=== PATIENT | female | born 1975 | race Caucasian/White ===

== ENCOUNTER → 2016-05-21 | Outpatient (CLI) | payer OTHER ==
[~2016-05-21] MED LIST: /PARO37TCR; ACET65TA; ATIV1TAB2; BYSTOLIC; CLOTRIMAZOLE; PERC5TAB8; SIMV20TA2; TRAM50TA2
--- NOTE | 2016-06-03 23:13 | ECWPNPC ---
PATIENT NAME: KEMAL ZEE : 1975 GENDER: FEMALE VISIT DATE: 05/21/2016 DISCHARGE DATE: 05/21/16 1025 VISIT LOCKED DATE TIME: PHYSICIAN: MEGAN GARCIA RESOURCE: MEGAN GARCIA REASON FOR APPOINTMENT 1. NEW BODY PART NECK HISTORY OF PRESENT ILLNESS FALL RISK SCREENING: SCREENING :NO FALLS IN THE PAST YEAR 40 YEAR OLD FEMALE PATIENT WITH HISTORY OF CHRONIC NECK PAIN. PATIENT DESCRIBES THE PAIN ACHING AND CONSTANT WITH A PAIN SCORE OF 7/10 ON TODAY'S VISIT. PATIENT REPORTS THAT HER NECK PAIN STARTED ON DECEMBER TO JANUARY OF 2016 AND HER PAIN HAS ONLY GOTTEN WORST. PATIENT REPORTS THAT SHE HAS RADIATING NECK PAIN GOING TO THE BACK OF HER HEAD WITH A TINGLING SENSATION AND SOMETIMES CAUSES HER TO HAVE HEADACHES. PATIENT REPORTS THAT ANY TIME OF MOVEMENT ON HER NECK GREATLY INCREASES HER PAIN AND AT THIS TIME HAS FOUND NOTHING TO REALLY RELIEVE HER PAIN. PATIENT STATES THAT WHEN SHE LAYS DOWN SHE WILL GET A SHARP PAIN IN HER NECK. PATIENT REPORTS THAT SHE HAS DIFFICULTIES SLEEPING AT NIGHT AND SHE WAS DIAGNOSED WITH SLEEP APNEA BUT SHE DOES NOT HAVE A C PAP MACHINE. PATIENT DENIES UNEXPLAINABLE WEIGHT LOSS, FEVER, CHILLS, NEW CHANGES ON HER URINARY OR BOWEL CONTROL. PAIN SCREENING: PATIENT HAS A COMPLAINT OF ACUTE OR CHRONIC PAIN :YES CURRENT MEDICATIONS TAKING VENTOLIN HFA 90 MCG/ACT AEROSOL SOLUTION 2 PUFFS NEEDED INHALATION EVERY 4 HRS TAKING GLUCOTROL XL 2.5 MG TABLET EXTENDED RELEASE 1 TABLET ORALLY ONCE A DAY TAKING LOSARTAN POTASSIUM 25 MG TABLET 1 TABLET ORALLY ONCE A DAY TAKING ZYRTEC 10 MG TABLET 1 TABLET ORALLY ONCE A DAY TAKING NEXIUM 40 MG CAPSULE DELAYED RELEASE 1 CAPSULE ORALLY ONCE A DAY TAKING SIMVASTATIN 10 MG TABLET 1 TABLET IN THE EVENING ORALLY ONCE A DAY TAKING PAROXETINE HCL ER 37.5 MG TABLET EXTENDED RELEASE 24 HOUR 1 TABLET IN THE MORNING ORALLY ONCE A DAY TAKING MOMETASONE-AMMONIUM LACTATE 0.1 & 12 % KIT EXTERNALLY PRN TAKING MOTRIN PM 200-38 MG TABLET 2 TABLETS AT BEDTIME NEEDED ORALLY ONCE A DAY TAKING OTEZLA 30 MG TABLET 1 TABLET ORALLY TWICE A DAY TAKING FLEXERIL 10 MG TABLET 1 TABLET ORALLY THREE TIMES A DAY NOT-TAKING GABAPENTIN 300 MG CAPSULE 1 CAPSULE ORALLY BID MEDICATION LIST REVIEWED AND RECONCILED WITH THE PATIENT PAST MEDICAL HISTORY HTN DEPRESSION / ANXIETY BRONCHIATUS HYPERLIPEDEMIA COSTOCHONDRIATUS BULGING DISC L4-5 AND L5-S1 ARTHRITIS BONE SPUR LEFT HIP SLEEP APNEA DIABETES NECK PAIN CA--CERVICLE PSORIOSIS DDD BONE SPURS IN NECK ALLERGIES CODEINE PHOSPHATE (FOR ALLERGIES USE ONLY): N/V/D: SIDE EFFECTS CRAB MEAT: RASH ON FACE: ALLERGY SURGICAL HISTORY HYSTERETOMY 2004 I+D OF INFECTED AREA UNDER LEFT BREAST 2009 PLATES AND SCREWS RIGHT WRIST 2011 CYSTS REMOVED ON NECK AND INNER LEFT THIGH FAMILY HISTORY FATHER: 59 YRS, DIAGNOSED WITH CANCER MOTHER: ALIVE 69 YRS, DIAGNOSED WITH DIABETES, HYPERTENSION, HEART DISEASE, STROKE SIBLINGS: ALIVE SON(S): ALIVE DAUGHTER(S): ALIVE 2 SON(S) , 1 DAUGHTER(S) . FATHER--LUNG CA4 BROTHERS HAVE COPD, 1BROTHER--SEIZURESYOUNGEST SON--ADHD. SOCIAL HISTORY GENERAL: TOBACCO USE ARE YOU A:FORMER SMOKER ALCOHOL SCREENING POINTS0 INTERPRETATIONNEGATIVE RECREATIONAL DRUG USE PATIENT DENIES USE OF ANY ILLEGAL SUBSTANCE INCLUDING MARIJUANA OR COCAINE. PATIENT DENIES ABUSE OR MISSUSED OF ANY MEDICATION. DRUG USE?NO CAFFEINE CAFFEINE USE?YES HOW OFTEN AND HOW MUCH? 2 CUPS COFFEE/DAY, 2 BOTTLES OF SODA/DAY OCCUPATION: UNEMPLOYED. DIET: REGULAR. EXERCISE: NO REGULAR EXERCISE. MARITAL STATUS: . OTHERS AT HOME: SPOUSE, CHILDREN--2 SONS. PETS: 1 CAT, 1 DOG. 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 ADVANCED DIRECTIVES HEALTH CARE PROXY?NO POWER OF BOARD SETTER?NO DOMESTIC VIOLENCE: NONE. PLAN OF CARE FOR THE PAIN CENTER REVIEWED WITH PATIENT AND SHE VERBALIZED UNDERSTANDING. HOSPITALIZATION/MAJOR DIAGNOSTIC PROCEDURE HOSPITALIZATIONS RELATED TO SURGERY AND CHILDBIRTH REVIEW OF SYSTEMS CONSTITUTIONAL: ANY CHANGE IN YOUR MEDICAL CONDITION? NO . CHILLS NO . FEVER NO . INFECTION: DO YOU HAVE NEW INFECTIONS? NO . DO YOU HAVE HISTORY OF MRSA? NO . MUSCULOSKELETAL: ANY NEW PATTERNS OF PAIN OR NUMBNESS? YES, PAIN IN NECK WITH TINGLING UP THE BACK OF HER HEAD . SYTEMIC LUPUS NO . GASTROENTEROLOGY: ANY NEW CHANGE IN BOWEL CONTROL? NO . BARRETTS ESOPHAGUS NO . CIRRHOSIS NO . HEPATITIS NO . LIVER FAILURE NO . ACID REFLUX NO . UNEXPLAINED WEIGHT LOSS NO . GENITOURINARY: ANY NEW CHANGE IN BLADDER CONTROL? NO . IS THERE A CHANCE YOU COULD BE ? NO . HEMATOLOGY/LYMPH: DO YOU TAKE ANY BLOOD THINNERS? (FOR EXAMPLE- COUMADIN, PLAVIX, AGGRENOX, PLATEL, PRADAXA, OR XARELTO) NO . WHEN WAS YOUR LAST DOSE? DATE: TIME: . LOW PLATELET COUNT NO . SICKLE CELL DISEASE NO . VON WILLIEBRANDS NO . FACTOR V LEIDEN NO . THALLASEMIA NO . ANEMIA NO . EASY BRUISING NO . NEUROLOGY: HAVE YOU FALLEN IN THE PAST 6 MONTHS? NO . ANY NEW EXTREMITY NUMBNESS OR WEAKNESS? NO . HEAD INJURY NO . DEMENTIA NO . CEREBRAL PALSY NO . MULTIPLE SCLEROSIS NO . DIZZINESS NO . HEADACHE GETS HEADACHES APPROX 2X WEEK--RELIEVED BY MOTRIN AND SLEEP . STROKES NO . VERTIGO NO . CARDIOLOGY: DO YOU HAVE A PACEMAKER OR DEFIBRILLATOR? NO . ANGINA NO . HEART ATTACK NO . HEART SURGERY NO . CONGESTIVE HEART FAILURE/FLUID OVERLOAD NO . CHEST PAIN NO . HIGH BLOOD PRESSURE ON MEDICATION(S) . IRREGULAR HEART BEAT NO . RESPIRATORY: HAVE YOU BEEN SICK IN THE PAST WEEK? NO . FEVER NO . FLU LIKE SYMPTOMS? NO . CPAP NO, DIAGNOSED WITH AGATHA BUT DOESN'T USE CPAP . BYPAP NO . ASTHMA NO . EMPHYSEMA NO . CHRONIC LUNG DISEASES NO . SHORTNESS OF BREATH ON EXERTION NO . COUGH NO . SNORING NO . INTEGUMENTARY: DO YOU HAVE ANY RASHES OR OPEN SORES? YES,PSORIOSIS ON HER HANDS . ALLERGIC/IMMUNO: ARE YOU ALLERGIC TO SHELLFISH OR IV DYE? YES, CRAB MEAT . ANY NEW ALLERGIES? NO . PSYCHIATRIC: DO YOU HAVE THOUGHTS OF HURTING YOURSELF OR SOMEONE ELSE? NO . ARE YOU ABUSED, NEGLECTED, OR IN AN UNSAFE ENVIRONMENT? NO . ENDOCRINOLOGY: ARE YOU DIABETIC? YES . THYROID DISORDER THYROID SLIGHTLY ENLARGED . OTHER: DO YOU NEED ANY PRESCRIPTIONS? NO . IF YES, PLEASE LIST: ____ . ANY NEW PROBLEMS WITH YOUR MEDICATIONS? NO . WHEN DID YOU LAST EAT? ____ . WHEN DID YOU LAST DRINK? ____ . WHAT DID YOU LAST DRINK? ____ . NAME OF PERSON DRIVING YOU HOME? ____ . DO YOU HAVE ANY OTHER QUESTIONS OR CONCERNS NO . REVIEWED BY: PROVIDER: MEGAN GARCIA MD . VITAL SIGNS WT 226.4 LBS, HT 64 IN, BMI 38.86 INDEX, BP 131/72 MM HG, HR 79 /MIN, RR 18 /MIN, TEMP 96.9 F, OXYGEN SAT % 95%, NA INITIALS SC 08:44, REVIEWED BY: AD. EXAMINATION : PATIENT IS ALERT O X 3 AND COOPERATIVE. PATIENT HAS TENDERNESS IN THE CERVICAL PARASPINAL MUSCLE GROUP WITH BANDS OF TISSUES. RESTRICTION OF MOVEMENT AND PRESENCE OF TRIGGER POINTS. PATIENT'S LEFT ARM IS WEAKER IN STRENGTH COMPARED TO THE RIGHT ARM. PATIENT'S LEFT HAND RESEARCH ASSOCIATE POLICY IS WEAKER THAN THE RIGHT HAND RESEARCH ASSOCIATE POLICY. PATIENT IS ABLE TO FLEX HER NECK TO 15 DEGREES AND PATIENT HAS DIFFICULTIES EXTENDING HER NECK. LATERAL MOVEMENT OF THE NECK IS 5 DEGREES TO THE LEFT AND 10 DEGREES TO THE RIGHT WITH SEVERE RESTRICTION OF MOVEMENT. PATIENT IS ABLE TO ABDUCT HER UPPER EXTREMITIES. PATIENT IS ABLE TO FLEX HER BACK TO 85 DEGREES AND SEVERE DIFFICULTIES EXTENDING HER BACK. PATIENT'S LEFT LEG IS WEAKER IN STRENGTH COMPARED TO THE RIGHT LEG. MRI OF THE CERVICAL SPINE DONE ON 12/22/2015 SHOWS SPONDYLOSIS AT MULTIPLE LEVELS AND FACET ARTHROPATHY. ASSESSMENTS MYALGIA - M79.1 (PRIMARY) SPONDYLOSIS WITHOUT MYELOPATHY OR RADICULOPATHY, CERVICAL REGION - M47.812 TREATMENT MYALGIA REFILL GABAPENTIN CAPSULE, 300 MG, 1 CAPSULE, ORALLY, BEFORE BEDTIME FOR PAIN, 30 DAY(S), 30, REFILLS 1 NOTES: WE DISCUSSED SEVERAL ISSUES WITH MS. ZEE'S PAIN MANAGEMENT CASE. I DISCUSSED WITH THE PATIENT THAT I WOULD LIKE HER PRIMARY CARE TO CALL ME IN ORDER FOR US TO REACH AN AGREEMENT ABOUT HER MEDICATIONS. I WILL HAVE THE PATIENT START GABAPENTIN TODAY AND DISCUSSED WITH HER TO TAKE IT AT NIGHT. I DISCUSSED SEVERAL INTERVENTIONS WITH THE PATIENT TODAY IN REGARDS TO WHAT WE CAN OFFER FOR HER PAIN MANAGEMENT. PATIENT TO FOLLOW UP WITH ME IN 1 WEEK. , INSTRUCTIONS WERE GIVEN, QUESTIONS WERE ANSWERED, PATIENT REPORTS UNDERSTANDING AND AGREES WITH THE PLAN. I, CHANG REYES, DOCUMENTED THE ABOVE INFORMATION ACTING A SCRIBE FOR DR. GARCIA. I HAVE REVIEWED THE ABOVE DOCUMENT, WRITTEN BY CHANG REYES SCRIBE AND I VERIFY THAT IT IS ACCURATE. PROCEDURE CODES FA211 ESTABILISHED PATIENT [facility] CHARGE G8730 PAIN ASSESS POS TOOL F/U PLAN DOC G8427 DOC MEDS VERIFIED W/PT OR RE DISPOSITION & COMMUNICATION FOLLOW UP 1 WEEK ELECTRONICALLY SIGNED BY MEGAN GARCIA MD ON 06/03/2016 AT 05:17 PM EDT DISCLAIMER : THIS IS A VISIT SUMMARY EXTRACTED FROM THE [employer] CHART. IT IS NOT A COPY OF THE [employer] PROGRESS NOTE. REKHA
== END ==
LOC: M PAIN 08:40
PROVIDERS: ATTEND Anesthesiology
DX: Z09 Encounter for follow-up examination after completed treatment for conditions other than malignant neoplasm (principal); G89.29 Other chronic pain; M79.1 Myalgia; M47.812 Spondylosis without myelopathy or radiculopathy, cervical region; I10 Essential (primary) hypertension; F32.9 Major depressive disorder, single episode, unspecified; F41.9 Anxiety disorder, unspecified; E78.5 Hyperlipidemia, unspecified; M19.90 Unspecified osteoarthritis, unspecified site; G47.30 Sleep apnea, unspecified; E11.9 Type 2 diabetes mellitus without complications; Z88.5 Allergy status to narcotic agent; Z91.013 Allergy to seafood; Z79.1 Long term (current) use of non-steroidal anti-inflammatories (NSAID); Z79.4 Long term (current) use of insulin; Z79.899 Other long term (current) drug therapy; Z87.891 Personal history of nicotine dependence

== ENCOUNTER → 2016-06-01 | Outpatient (CLI) | payer OTHER ==
--- NOTE | 2016-06-10 23:46 | ECWPNPC ---
PATIENT NAME: KEMAL ZEE : 1975 GENDER: FEMALE VISIT DATE: 06/01/2016 DISCHARGE DATE: 06/01/161716 VISIT LOCKED DATE TIME: PHYSICIAN: MEGAN GARCIA RESOURCE: MEGAN GARCIA REASON FOR APPOINTMENT 1. NECK HISTORY OF PRESENT ILLNESS HISTORY OF PRESENT ILLNESS: PAIN THE PATIENT DESCRIBES THE PAIN... 40 YEAR OLD FEMALE PATIENT WITH HISTORY OF CHRONIC BACK PAIN. PATIENT DESCRIBES THE PAIN ACHING, SHARP, AND IT COMES AND GOES WITH A PAIN SCORE OF 6/10 ON TODAY'S VISIT. PATIENT STATES THAT HER NECK HURTS THE MOST TODAY WITH RADIATING PAIN UP TO THE BACK OF HER HEAD. PATIENT STATES THAT GABAPENTIN CAUSES DRY MOUTH, AND WHEN SHE TOOK GABAPENTIN ON HER FIRST NIGHT SHE WAS ABLE TO SLEEP THROUGH THE NIGHT WITHOUT DIFFICULTIES. BUT SINCE THEN THE DIFFICULTIES SLEEPING AT NIGHT HAS RETURNED. PATIENT DENIES UNEXPLAINABLE WEIGHT LOSS, FEVER, CHILLS, NEW CHANGES ON HER URINARY OR BOWEL CONTROL. FALL RISK SCREENING: SCREENING :NO FALLS IN THE PAST YEAR CURRENT MEDICATIONS TAKING VENTOLIN HFA 90 MCG/ACT AEROSOL SOLUTION 2 PUFFS NEEDED INHALATION EVERY 4 HRS TAKING GLUCOTROL XL 2.5 MG TABLET EXTENDED RELEASE 1 TABLET ORALLY ONCE A DAY TAKING LOSARTAN POTASSIUM 25 MG TABLET 1 TABLET ORALLY ONCE A DAY TAKING ZYRTEC 10 MG TABLET 1 TABLET ORALLY ONCE A DAY TAKING NEXIUM 40 MG CAPSULE DELAYED RELEASE 1 CAPSULE ORALLY ONCE A DAY TAKING SIMVASTATIN 10 MG TABLET 1 TABLET IN THE EVENING ORALLY ONCE A DAY TAKING PAROXETINE HCL ER 37.5 MG TABLET EXTENDED RELEASE 24 HOUR 1 TABLET IN THE MORNING ORALLY ONCE A DAY TAKING MOMETASONE-AMMONIUM LACTATE 0.1 & 12 % KIT EXTERNALLY PRN TAKING MOTRIN PM 200-38 MG TABLET 2 TABLETS AT BEDTIME NEEDED ORALLY ONCE A DAY TAKING OTEZLA 30 MG TABLET 1 TABLET ORALLY TWICE A DAY TAKING FLEXERIL 10 MG TABLET 1 TABLET ORALLY THREE TIMES A DAY TAKING GABAPENTIN 300 MG CAPSULE 1 CAPSULE ORALLY BEFORE BEDTIME FOR PAIN MEDICATION LIST REVIEWED AND RECONCILED WITH THE PATIENT PAST MEDICAL HISTORY HTN DEPRESSION / ANXIETY BRONCHIATUS HYPERLIPEDEMIA COSTOCHONDRIATUS BULGING DISC L4-5 AND L5-S1 ARTHRITIS BONE SPUR LEFT HIP SLEEP APNEA DIABETES NECK PAIN CA--CERVICLE PSORIOSIS DDD BONE SPURS IN NECK ALLERGIES CODEINE PHOSPHATE (FOR ALLERGIES USE ONLY): N/V/D: SIDE EFFECTS CRAB MEAT: RASH ON FACE: ALLERGY SURGICAL HISTORY HYSTERETOMY 2004 I+D OF INFECTED AREA UNDER LEFT BREAST 2009 PLATES AND SCREWS RIGHT WRIST 2011 CYSTS REMOVED ON NECK AND INNER LEFT THIGH FAMILY HISTORY FATHER: 59 YRS, DIAGNOSED WITH CANCER MOTHER: ALIVE 69 YRS, DIAGNOSED WITH DIABETES, HYPERTENSION, HEART DISEASE, STROKE SIBLINGS: ALIVE SON(S): ALIVE DAUGHTER(S): ALIVE 2 SON(S) , 1 DAUGHTER(S) . FATHER--LUNG CA4 BROTHERS HAVE COPD, 1BROTHER--SEIZURESYOUNGEST SON--ADHD. SOCIAL HISTORY GENERAL: PAIN CLINIC PFS, CLERGY, PUBLIC HEALTH REFERRALS CLERGY REFERRAL NEEDED?NO WAS THE PROVIDER NOTIFIED OF ANY PERTINENT INFO?NO PFS REFERRAL NEEDED?NO PUBLIC HEALTH REFERRAL NEEDED?NO PATIENT: ____. PLAN OF CARE FOR THE PAIN CENTER REVIEWED WITH PATIENT AND SHE VERBALIZED UNDERSTANDING. HOSPITALIZATION/MAJOR DIAGNOSTIC PROCEDURE HOSPITALIZATIONS RELATED TO SURGERY AND CHILDBIRTH REVIEW OF SYSTEMS CONSTITUTIONAL: ANY CHANGE IN YOUR MEDICAL CONDITION? NO . CHILLS NO . FEVER NO . INFECTION: DO YOU HAVE NEW INFECTIONS? NO . DO YOU HAVE HISTORY OF MRSA? NO . MUSCULOSKELETAL: ANY NEW PATTERNS OF PAIN OR NUMBNESS? YES, RIGHT HEAD AND NECK, NUMBNESS STARTED TODAY . GASTROENTEROLOGY: ANY NEW CHANGE IN BOWEL CONTROL? NO . GENITOURINARY: ANY NEW CHANGE IN BLADDER CONTROL? NO . IS THERE A CHANCE YOU COULD BE ? NO . HEMATOLOGY/LYMPH: DO YOU TAKE ANY BLOOD THINNERS? (FOR EXAMPLE- COUMADIN, PLAVIX, AGGRENOX, PLATEL, PRADAXA, OR XARELTO) NO . WHEN WAS YOUR LAST DOSE? DATE: TIME: . NEUROLOGY: HAVE YOU FALLEN IN THE PAST 6 MONTHS? NO . ANY NEW EXTREMITY NUMBNESS OR WEAKNESS? NO . CARDIOLOGY: DO YOU HAVE A PACEMAKER OR DEFIBRILLATOR? NO . RESPIRATORY: HAVE YOU BEEN SICK IN THE PAST WEEK? NO . FEVER NO . FLU LIKE SYMPTOMS? NO . COUGH NO . INTEGUMENTARY: DO YOU HAVE ANY RASHES OR OPEN SORES? YES, PSORIASIS . ALLERGIC/IMMUNO: ARE YOU ALLERGIC TO SHELLFISH OR IV DYE? YES . ANY NEW ALLERGIES? NO . PSYCHIATRIC: DO YOU HAVE THOUGHTS OF HURTING YOURSELF OR SOMEONE ELSE? NO . ARE YOU ABUSED, NEGLECTED, OR IN AN UNSAFE ENVIRONMENT? NO . ENDOCRINOLOGY: ARE YOU DIABETIC? YES . OTHER: DO YOU NEED ANY PRESCRIPTIONS? NO . IF YES, PLEASE LIST: ____ . ANY NEW PROBLEMS WITH YOUR MEDICATIONS? NO . WHEN DID YOU LAST EAT? ____ . WHEN DID YOU LAST DRINK? ____ . WHAT DID YOU LAST DRINK? ____ . NAME OF PERSON DRIVING YOU HOME? ____ . DO YOU HAVE ANY OTHER QUESTIONS OR CONCERNS NO . REVIEWED BY: PROVIDER: MEGAN GARCIA MD . VITAL SIGNS WT 222 LBS, HT 64 IN, BMI 38.10 INDEX, BP 139/94 MM HG, HR 101 /MIN, RR 18 /MIN, TEMP 97.3 F, OXYGEN SAT % 97%, NA INITIALS SC15:47, REVIEWED BY: NL. EXAMINATION : PATIENT IS ALERT O X 3 AND COOPERATIVE. PATIENT IS ABLE TO EXTEND HER NECK TO 15 DEGREES AND FLEX HER NECK TO 45 DEGREES. LATERAL MOVEMENT OF THE NECK TO LEFT IS AT 20 DEGREES AND TO THE RIGHT AT 30 DEGREES. PATIENT HAS TENDERNESS IN THE CERVICAL PARASPINAL MUSCLE GROUP WITH BANDS OF TISSUES, RESTRICTION OF MOVEMENT, AND PRESENCE OF TRIGGER POINTS. ASSESSMENTS MYALGIA - M79.1 (PRIMARY) SPONDYLOSIS WITHOUT MYELOPATHY OR RADICULOPATHY, CERVICAL REGION - M47.812 TREATMENT MYALGIA REFILL GABAPENTIN CAPSULE, 300 MG, 1 CAPSULE, ORALLY, BEFORE BEDTIME FOR PAIN, 30 DAY(S), 30, REFILLS 1 NOTES: WE DISCUSSED SEVERAL ISSUES WITH MS. ZEE'S PAIN MANAGEMENT CASE. AT THIS TIME I WILL REFILL GABAPENTIN AND HAVE THE PATIENT START ON ZANAFLEX. I DISCUSSED WITH THE PATIENT THAT HER PRIMARY MUST CALL US IN ORDER TO REACH AN AGREEMENT REGARDING ABOUT PRESCRIBING NARCOTICS. PATIENT WILL FOLLOW UP WITH YANNICK DALTON IN 2 TO 3 WEEKS. INSTRUCTIONS WERE GIVEN, QUESTIONS WERE ANSWERED, PATIENT REPORTS UNDERSTANDING AND AGREES WITH THE PLAN. I, CHANG REYES, DOCUMENTED THE ABOVE INFORMATION ACTING A SCRIBE FOR DR. GARCIA. I HAVE REVIEWED THE ABOVE DOCUMENT, WRITTEN BY CHANG ELIASIBMira AND I VERIFY THAT IT IS ACCURATE. OTHERS START ZANAFLEX CAPSULE, 2 MG, 1 CAPSULE NEEDED, ORALLY, BEFORE BEDTIME MAY REPEAT IN 4 HRS MDD2, 30 DAY(S), 60, REFILLS 1 PROCEDURE CODES FA211 ESTABILISHED PATIENT [facility] FACILITY CHARGE M6638 PAIN ASSESS POS TOOL F/U PLAN DOC G8427 DOC MEDS VERIFIED W/PT OR RE DISPOSITION & COMMUNICATION FOLLOW UP 3 WEEKS ELECTRONICALLY SIGNED BY MEGAN GARCIA MD ON 06/10/2016 AT 04:33 PM EDT DISCLAIMER : THIS IS A VISIT SUMMARY EXTRACTED FROM THE [employer] CHART. IT IS NOT A COPY OF THE [employer] PROGRESS NOTE. REKHA
== END ==
LOC: M PAIN 15:15
PROVIDERS: ATTEND Anesthesiology
DX: G89.29 Other chronic pain (principal); M47.812 Spondylosis without myelopathy or radiculopathy, cervical region; M79.1 Myalgia; I10 Essential (primary) hypertension; F32.9 Major depressive disorder, single episode, unspecified; F41.9 Anxiety disorder, unspecified; E78.5 Hyperlipidemia, unspecified; M19.90 Unspecified osteoarthritis, unspecified site; G47.30 Sleep apnea, unspecified; E11.9 Type 2 diabetes mellitus without complications; Z88.5 Allergy status to narcotic agent; Z91.013 Allergy to seafood; L40.9 Psoriasis, unspecified; Z79.899 Other long term (current) drug therapy

== ENCOUNTER → 2016-06-22 | Outpatient (CLI) | payer OTHER ==
--- NOTE | 2016-06-26 01:41 | ECWPNPC ---
PATIENT NAME: KEMAL ZEE : 1975 GENDER: FEMALE VISIT DATE: 06/22/2016 DISCHARGE DATE: 06/22/16 1123 VISIT LOCKED DATE TIME: PHYSICIAN: STEVIE DALTON RESOURCE: STEVIE DALTON REASON FOR APPOINTMENT 1. BACK AND NECK HISTORY OF PRESENT ILLNESS HISTORY OF PRESENT ILLNESS: PAIN THE PATIENT DESCRIBES THE PAIN... FALL RISK SCREENING: SCREENING :NO FALLS IN THE PAST YEAR TODAY'S VISIT: NOTES: STATES IS HAVING PAIN STILL IN NECK AND LOW BACK. REPORTS SHE PREVIOUSLY SAW DR HENDRICKS AT [employer] AND HE WANTED TO DO INJECTIONS. SHE REFUSED. STATES MEDS HAVE NOT BEEN HELPING - TAKES THEM ONLT AT [facility] MUCH DRY MOUTH. IS HACING TINGLING IN NECK RADIATING UP HEAD. NO RECENT FALLS. IS CURRENTLY IN PHYSICAL THERAPY. IS DOING HOME EXERCISES. . CURRENT MEDICATIONS TAKING GABAPENTIN 300 MG CAPSULE 1 CAPSULE ORALLY BEFORE BEDTIME FOR PAIN TAKING ZANAFLEX 2 MG CAPSULE 1 CAPSULE NEEDED ORALLY BEFORE BEDTIME MAY REPEAT IN 4 HRS MDD2 TAKING VENTOLIN HFA 90 MCG/ACT AEROSOL SOLUTION 2 PUFFS NEEDED INHALATION EVERY 4 HRS TAKING GLUCOTROL XL 2.5 MG TABLET EXTENDED RELEASE 1 TABLET ORALLY ONCE A DAY TAKING LOSARTAN POTASSIUM 25 MG TABLET 1 TABLET ORALLY ONCE A DAY TAKING ZYRTEC 10 MG TABLET 1 TABLET ORALLY ONCE A DAY TAKING NEXIUM 40 MG CAPSULE DELAYED RELEASE 1 CAPSULE ORALLY ONCE A DAY TAKING SIMVASTATIN 10 MG TABLET 1 TABLET IN THE EVENING ORALLY ONCE A DAY TAKING PAROXETINE HCL ER 37.5 MG TABLET EXTENDED RELEASE 24 HOUR 1 TABLET IN THE MORNING ORALLY ONCE A DAY TAKING MOMETASONE-AMMONIUM LACTATE 0.1 & 12 % KIT EXTERNALLY PRN TAKING MOTRIN PM 200-38 MG TABLET 2 TABLETS AT BEDTIME NEEDED ORALLY ONCE A DAY TAKING OTEZLA 30 MG TABLET 1 TABLET ORALLY TWICE A DAY TAKING FLEXERIL 10 MG TABLET 1 TABLET ORALLY THREE TIMES A DAY MEDICATION LIST REVIEWED AND RECONCILED WITH THE PATIENT PAST MEDICAL HISTORY HTN DEPRESSION / ANXIETY BRONCHIATUS HYPERLIPEDEMIA COSTOCHONDRIATUS BULGING DISC L4-5 AND L5-S1 ARTHRITIS BONE SPUR LEFT HIP SLEEP APNEA DIABETES NECK PAIN CA--CERVICLE PSORIOSIS DDD BONE SPURS IN NECK ALLERGIES CODEINE PHOSPHATE (FOR ALLERGIES USE ONLY): N/V/D: SIDE EFFECTS CRAB MEAT: RASH ON FACE: ALLERGY REVIEW OF SYSTEMS CONSTITUTIONAL: ANY CHANGE IN YOUR MEDICAL CONDITION? NO . CHILLS NO . FEVER NO . INFECTION: DO YOU HAVE NEW INFECTIONS? NO . DO YOU HAVE HISTORY OF MRSA? NO . MUSCULOSKELETAL: ANY NEW PATTERNS OF PAIN OR NUMBNESS? NO . GASTROENTEROLOGY: GENERAL DENIES CONSTIPATION . ANY NEW CHANGE IN BOWEL CONTROL? NO . GENITOURINARY: ANY NEW CHANGE IN BLADDER CONTROL? NO . IS THERE A CHANCE YOU COULD BE ? NO . HEMATOLOGY/LYMPH: DO YOU TAKE ANY BLOOD THINNERS? (FOR EXAMPLE- COUMADIN, PLAVIX, AGGRENOX, PLATEL, PRADAXA, OR XARELTO) NO . WHEN WAS YOUR LAST DOSE? DATE: TIME: . NEUROLOGY: HAVE YOU FALLEN IN THE PAST 6 MONTHS? NO . ANY NEW EXTREMITY NUMBNESS OR WEAKNESS? NO . CARDIOLOGY: DO YOU HAVE A PACEMAKER OR DEFIBRILLATOR? NO . RESPIRATORY: HAVE YOU BEEN SICK IN THE PAST WEEK? NO . FEVER NO . FLU LIKE SYMPTOMS? NO . COUGH NO . INTEGUMENTARY: DO YOU HAVE ANY RASHES OR OPEN SORES? YES, PT STATES PSORIASIS, RASH TO LEFT PALM AND LEFT FOREARM . ALLERGIC/IMMUNO: ARE YOU ALLERGIC TO SHELLFISH OR IV DYE? YES, CRABMEAT . ANY NEW ALLERGIES? NO . PSYCHIATRIC: DO YOU HAVE THOUGHTS OF HURTING YOURSELF OR SOMEONE ELSE? NO . ARE YOU ABUSED, NEGLECTED, OR IN AN UNSAFE ENVIRONMENT? NO . ENDOCRINOLOGY: ARE YOU DIABETIC? YESV- UNDER 200 . OTHER: DO YOU NEED ANY PRESCRIPTIONS? NO . IF YES, PLEASE LIST: ____ . ANY NEW PROBLEMS WITH YOUR MEDICATIONS? NO . WHEN DID YOU LAST EAT? ____ . WHEN DID YOU LAST DRINK? ____ . WHAT DID YOU LAST DRINK? ____ . NAME OF PERSON DRIVING YOU HOME? ____ . DO YOU HAVE ANY OTHER QUESTIONS OR CONCERNS NO . HEENT: GENERAL REPORTS VERYDRY MOUTH - FEELS IT IS SECONDARY TO GABAPENTIN. . SKIN: DO YOU HAVE ANY RASHES OR OPEN SORES? PSORIASIS ON OTEZLA - NOT MUCH IMPROVEMENT. SEES DERMATOLOGY. . REVIEWED BY: PROVIDER: STEVIE BLANDON . VITAL SIGNS WT 225.8 LBS, HT 64 IN, BMI 38.75 INDEX, BP 148/73 MM HG, HR 95 /MIN, RR 16 /MIN, TEMP 96.5 F, OXYGEN SAT % 97%, SAFE IN ENV? (Y/N) Y, NA INITIALS TL 1030, REVIEWED BY: EM. EXAMINATION GENERAL EXAMINATION: PSYCHORIENTED X 3 , APPROPRIATE MOOD AND AFFECT , ALERT . ORAL CAVITY:VERY DRY TONGUE, MUCOUS MEMBRANES. LUNGS:CLEAR TO AUSCULTATION BILATERALLY, DECREASED AIR ENTRY AT BASES. HEART:HEART RATE REGULAR. MUSCULOSKELETAL:MUSCLE STRENGTH TESTING 5/5 BILATERAL UPPER AND LOWER EXTREMITIES BOTH DISTALLY AND PROXIMALLY. POINT TENDERNESS OVER CERVICAL SPINOUS PROCESSES. , TRIGGER POINTS AND TIGHT FIBROUS BANDS IDENTIED OVER BILATER TRAPEZIUS MUSCLES AND ACROSS THE LUMBOSACRAL AXIS. ROM DECREASED WITH NECK FLEXION, ROTATION AND EXTENSION, AND WITH BACK ROTATION. POSTURE UPRIGHT. GAIT NONANTALGIC. SKIN:SCALEY FLAKY PATCHES ON RIGHT FOREARM, PALMS OF BOTH HANDS. ASSESSMENTS MYALGIA - M79.1 (PRIMARY) SPONDYLOSIS WITHOUT MYELOPATHY OR RADICULOPATHY, CERVICAL REGION - M47.812 TREATMENT MYALGIA STOP ZANAFLEX CAPSULE, 2 MG, 1 CAPSULE NEEDED, ORALLY, BEFORE BEDTIME MAY REPEAT IN 4 HRS MDD2 CONTINUE FLEXERIL TABLET, 10 MG, 1 TABLET, ORALLY, THREE TIMES A DAY REFILL GABAPENTIN CAPSULE, 300 MG, 1 CAPSULE, ORALLY, BEFORE BEDTIME FOR PAIN, 30 DAY(S), 30, REFILLS 1 START TIZANIDINE HCL TABLET, 4 MG, 1 TABLET NEEDED, ORALLY, THREE TIMES A DAY, 30 DAY(S), 90 TABLET, REFILLS 1 START DICLOFENAC SODIUM TABLET DELAYED RELEASE, 75 MG, 1 TABLET WITH FOOD OR MILK, ORALLY, TWICE A DAY, 30 DAY(S), 60, REFILLS 2 CLINICAL NOTES: DISCUSSION HELD WITH PATIENT RGARDING OPTIONS FOR CARE. I DID REVIEW WITH HER MY DISCUSSION WITH HER PCP, AND THAT WE WOULD NOT BE USING OPIOID MEDICATIONS. I WILL NOT START HER ON TRAMADOL THERE IS CONCERN ABOUT POSSIBLE SEIZURES. PROCEDURE CODES FA211 ESTABILISHED PATIENT [facility] CHARGE DISPOSITION & COMMUNICATION FOLLOW UP 1 MONTH ELECTRONICALLY SIGNED BY DONALD QUIGLEY ON 06/25/2016 AT 08:45 AM EDT DISCLAIMER : THIS IS A VISIT SUMMARY EXTRACTED FROM THE [employer] CHART. IT IS NOT A COPY OF THE [employer] PROGRESS NOTE. REKHA
== END ==
LOC: M PAIN 10:00
PROVIDERS: ATTEND Nurse Practitioner Family
DX: G89.29 Other chronic pain (principal); M79.1 Myalgia; M47.812 Spondylosis without myelopathy or radiculopathy, cervical region; I10 Essential (primary) hypertension; F32.9 Major depressive disorder, single episode, unspecified; F41.9 Anxiety disorder, unspecified; E78.5 Hyperlipidemia, unspecified; E11.9 Type 2 diabetes mellitus without complications; L40.9 Psoriasis, unspecified; M46.02 Spinal enthesopathy, cervical region; M76.892 Other specified enthesopathies of left lower limb, excluding foot; Z88.5 Allergy status to narcotic agent; Z91.013 Allergy to seafood; Z79.1 Long term (current) use of non-steroidal anti-inflammatories (NSAID); Z79.899 Other long term (current) drug therapy; Z79.84 Long term (current) use of oral hypoglycemic drugs

== ENCOUNTER → 2016-06-29 | Outpatient (CLI) | payer OTHER ==
--- NOTE | 2016-07-16 23:29 | ECWPNPC ---
PATIENT NAME: KEMAL ZEE : 1975 GENDER: FEMALE VISIT DATE: 06/29/2016 DISCHARGE DATE: 06/29/16 1443 VISIT LOCKED DATE TIME: PHYSICIAN: STEVIE DALTON RESOURCE: STEVIE DALTON REASON FOR APPOINTMENT 1. MEDS HISTORY OF PRESENT ILLNESS HISTORY OF PRESENT ILLNESS: PAIN THE PATIENT DESCRIBES THE PAIN... FALL RISK SCREENING: SCREENING :NO FALLS IN THE PAST YEAR TODAY'S VISIT: NOTES: RATES PAIN TODAY 7/10. DESCRIBES PAIN CONSTANT, ACHING, ANT INTERMITTANTLY MORE UNCOMFORTABLE.PAIN IS CENTERED IN BASE OF NECK AND LOW BACK RIGHT SIDE AND RIGHT FLANK AREA.. CURRENT MEDICATIONS TAKING VENTOLIN HFA 90 MCG/ACT AEROSOL SOLUTION 2 PUFFS NEEDED INHALATION EVERY 4 HRS TAKING GLUCOTROL XL 2.5 MG TABLET EXTENDED RELEASE 1 TABLET ORALLY ONCE A DAY TAKING LOSARTAN POTASSIUM 25 MG TABLET 1 TABLET ORALLY ONCE A DAY TAKING ZYRTEC 10 MG TABLET 1 TABLET ORALLY ONCE A DAY TAKING NEXIUM 40 MG CAPSULE DELAYED RELEASE 1 CAPSULE ORALLY ONCE A DAY TAKING SIMVASTATIN 10 MG TABLET 1 TABLET IN THE EVENING ORALLY ONCE A DAY TAKING PAROXETINE HCL ER 37.5 MG TABLET EXTENDED RELEASE 24 HOUR 1 TABLET IN THE MORNING ORALLY ONCE A DAY TAKING MOMETASONE-AMMONIUM LACTATE 0.1 & 12 % KIT EXTERNALLY PRN TAKING MOTRIN PM 200-38 MG TABLET 2 TABLETS AT BEDTIME NEEDED ORALLY ONCE A DAY TAKING OTEZLA 30 MG TABLET 1 TABLET ORALLY TWICE A DAY TAKING FLEXERIL 10 MG TABLET 1 TABLET ORALLY THREE TIMES A DAY TAKING GABAPENTIN 300 MG CAPSULE 1 CAPSULE ORALLY BEFORE BEDTIME FOR PAIN TAKING TIZANIDINE HCL 4 MG TABLET 1 TABLET NEEDED ORALLY THREE TIMES A DAY TAKING DICLOFENAC SODIUM 75 MG TABLET DELAYED RELEASE 1 TABLET WITH FOOD OR MILK ORALLY TWICE A DAY PAST MEDICAL HISTORY HTN DEPRESSION / ANXIETY BRONCHIATUS HYPERLIPEDEMIA COSTOCHONDRIATUS BULGING DISC L4-5 AND L5-S1 ARTHRITIS BONE SPUR LEFT HIP SLEEP APNEA DIABETES NECK PAIN CA--CERVICLE PSORIOSIS DDD BONE SPURS IN NECK ALLERGIES CODEINE PHOSPHATE (FOR ALLERGIES USE ONLY): N/V/D: SIDE EFFECTS CRAB MEAT: RASH ON FACE: ALLERGY REVIEW OF SYSTEMS CONSTITUTIONAL: ANY CHANGE IN YOUR MEDICAL CONDITION? NO . CHILLS NO . FEVER NO . INFECTION: DO YOU HAVE NEW INFECTIONS? NO . DO YOU HAVE HISTORY OF MRSA? NO . MUSCULOSKELETAL: ANY NEW PATTERNS OF PAIN OR NUMBNESS? NO . GASTROENTEROLOGY: ANY NEW CHANGE IN BOWEL CONTROL? NO . GENITOURINARY: ANY NEW CHANGE IN BLADDER CONTROL? NO . IS THERE A CHANCE YOU COULD BE ? NO . HEMATOLOGY/LYMPH: DO YOU TAKE ANY BLOOD THINNERS? (FOR EXAMPLE- COUMADIN, PLAVIX, AGGRENOX, PLATEL, PRADAXA, OR XARELTO) NO . WHEN WAS YOUR LAST DOSE? DATE: TIME: . NEUROLOGY: HAVE YOU FALLEN IN THE PAST 6 MONTHS? NO . ANY NEW EXTREMITY NUMBNESS OR WEAKNESS? NO . CARDIOLOGY: DO YOU HAVE A PACEMAKER OR DEFIBRILLATOR? NO . RESPIRATORY: HAVE YOU BEEN SICK IN THE PAST WEEK? NO . FEVER NO . FLU LIKE SYMPTOMS? NO . COUGH NO . INTEGUMENTARY: DO YOU HAVE ANY RASHES OR OPEN SORES? YES . ALLERGIC/IMMUNO: ARE YOU ALLERGIC TO SHELLFISH OR IV DYE? YES, SHELLFISH . ANY NEW ALLERGIES? NO . PSYCHIATRIC: DO YOU HAVE THOUGHTS OF HURTING YOURSELF OR SOMEONE ELSE? NO . ARE YOU ABUSED, NEGLECTED, OR IN AN UNSAFE ENVIRONMENT? NO . ENDOCRINOLOGY: ARE YOU DIABETIC? YES . OTHER: DO YOU NEED ANY PRESCRIPTIONS? NO . IF YES, PLEASE LIST: ____ . ANY NEW PROBLEMS WITH YOUR MEDICATIONS? NO . WHEN DID YOU LAST EAT? ____ . WHEN DID YOU LAST DRINK? ____ . WHAT DID YOU LAST DRINK? ____ . NAME OF PERSON DRIVING YOU HOME? ____ . DO YOU HAVE ANY OTHER QUESTIONS OR CONCERNS NO . REVIEWED BY: PROVIDER: STEVIE BLANDON . VITAL SIGNS WT 225.8 LBS, HT 64 IN, BMI 38.75 INDEX, BP 149/73 MM HG, HR 92 /MIN, RR 18 /MIN, TEMP 98.0 F, OXYGEN SAT % 96%, NA INITIALS TL 1405, REVIEWED BY: NL. EXAMINATION GENERAL EXAMINATION: PSYCHORIENTED X 3 , APPROPRIATE MOOD AND AFFECT , ALERT . LUNGS:CLEAR TO AUSCULTATION BILATERALLY, DECREASED AIR ENTRY AT BASES. HEART:HEART RATE REGULAR. MUSCULOSKELETAL:MUSCLE STRENGTH TESTING 5/5 BILATERAL UPPER AND LOWER EXTREMITIES BOTH DISTALLY AND PROXIMALLY. POINT TENDERNESS OVER CERVICAL SPINOUS PROCESSES. , TRIGGER POINTS AND TIGHT FIBROUS BANDS IDENTIED OVER BILATER TRAPEZIUS MUSCLES AND ACROSS THE LUMBOSACRAL AXIS. ROM DECREASED WITH NECK FLEXION, ROTATION AND EXTENSION, AND WITH BACK ROTATION. POSTURE UPRIGHT. GAIT NONANTALGIC. SKIN:SCALEY FLAKY PATCHES ON RIGHT FOREARM, PALMS OF BOTH HANDS. ASSESSMENTS MYALGIA - M79.1 (PRIMARY) SPONDYLOSIS WITHOUT MYELOPATHY OR RADICULOPATHY, CERVICAL REGION - M47.812 TREATMENT MYALGIA START LYRICA CAPSULE, 75 MG, 1 CAPSULE, ORALLY, TWICE A DAY NOTES: TENNIS BALL AND GENTLE MASSAGE TO NECK/SHOULDER AREA. CONTINUE PHYSICAL THERAPYREVIEWED WITH HER PATIENT THAT E WILL NOT BE USING ANY OPIOIDS. REVIEWED MY CONVERSATION WITH HER PCP, ROLF VELAZQUEZ NP AND THAT REGULAR USE OF OPIODS WAS NOT SOMETHING THAT THEIR PRACTICE COULD CONTINUE. WILL TRY OTHER MEDS AND DID ASK HER RECONSIDER INJECTION THERAPY. PROCEDURE CODES FA211 ESTABILISHED PATIENT [facility] CHARGE DISPOSITION & COMMUNICATION FOLLOW UP KEEP SCHEDULED APPOINTMENT ELECTRONICALLY SIGNED BY DONALD QUIGLEY ON 07/16/2016 AT 04:24 PM EDT DISCLAIMER : THIS IS A VISIT SUMMARY EXTRACTED FROM THE [employer] CHART. IT IS NOT A COPY OF THE [employer] PROGRESS NOTE. MTDD
== END ==
LOC: M PAIN 14:20
PROVIDERS: ATTEND Nurse Practitioner Family
DX: G89.29 Other chronic pain (principal); M79.1 Myalgia; M47.812 Spondylosis without myelopathy or radiculopathy, cervical region; I10 Essential (primary) hypertension; F32.9 Major depressive disorder, single episode, unspecified; F41.9 Anxiety disorder, unspecified; E78.5 Hyperlipidemia, unspecified; M19.90 Unspecified osteoarthritis, unspecified site; G47.30 Sleep apnea, unspecified; E11.9 Type 2 diabetes mellitus without complications; Z91.013 Allergy to seafood; Z88.5 Allergy status to narcotic agent; Z79.84 Long term (current) use of oral hypoglycemic drugs; Z79.899 Other long term (current) drug therapy

== ENCOUNTER → 2016-07-19 | Outpatient (CLI) | payer OTHER ==
--- NOTE | 2016-08-08 01:43 | ECWPNPC ---
PATIENT NAME: KEMAL ZEE : 1975 GENDER: FEMALE VISIT DATE: 07/19/2016 DISCHARGE DATE: 07/19/16 1133 VISIT LOCKED DATE TIME: PHYSICIAN: STEVIE DALTON RESOURCE: STEVIE DALTON REASON FOR APPOINTMENT 1. MEDS HISTORY OF PRESENT ILLNESS HISTORY OF PRESENT ILLNESS: PAIN THE PATIENT DESCRIBES THE PAIN... FALL RISK SCREENING: SCREENING :NO FALLS IN THE PAST YEAR TODAY'S VISIT: NOTES: RATES PAIN LEVEL TODAY 7/10. NOTES CAN NOT TURN HER HEAD TO LEFT. NO PAIN RADIATING DOWN LEFT ARM. . CURRENT MEDICATIONS TAKING VENTOLIN HFA 90 MCG/ACT AEROSOL SOLUTION 2 PUFFS NEEDED INHALATION EVERY 4 HRS TAKING GLUCOTROL XL 2.5 MG TABLET EXTENDED RELEASE 1 TABLET ORALLY ONCE A DAY TAKING LOSARTAN POTASSIUM 25 MG TABLET 1 TABLET ORALLY ONCE A DAY TAKING ZYRTEC 10 MG TABLET 1 TABLET ORALLY ONCE A DAY TAKING NEXIUM 40 MG CAPSULE DELAYED RELEASE 1 CAPSULE ORALLY ONCE A DAY TAKING SIMVASTATIN 10 MG TABLET 1 TABLET IN THE EVENING ORALLY ONCE A DAY TAKING PAROXETINE HCL ER 37.5 MG TABLET EXTENDED RELEASE 24 HOUR 1 TABLET IN THE MORNING ORALLY ONCE A DAY TAKING MOMETASONE-AMMONIUM LACTATE 0.1 & 12 % KIT EXTERNALLY PRN TAKING MOTRIN PM 200-38 MG TABLET 2 TABLETS AT BEDTIME NEEDED ORALLY ONCE A DAY TAKING OTEZLA 30 MG TABLET 1 TABLET ORALLY TWICE A DAY TAKING GABAPENTIN 300 MG CAPSULE 1 CAPSULE ORALLY BEFORE BEDTIME FOR PAIN TAKING TIZANIDINE HCL 4 MG TABLET 1 TABLET NEEDED ORALLY THREE TIMES A DAY TAKING LYRICA 75 MG CAPSULE 1 CAPSULE ORALLY TWICE A DAY NOT-TAKING FLEXERIL 10 MG TABLET 1 TABLET ORALLY THREE TIMES A DAY NOT-TAKING DICLOFENAC SODIUM 75 MG TABLET DELAYED RELEASE 1 TABLET WITH FOOD OR MILK ORALLY TWICE A DAY MEDICATION LIST REVIEWED AND RECONCILED WITH THE PATIENT PAST MEDICAL HISTORY HTN DEPRESSION / ANXIETY BRONCHIATUS HYPERLIPEDEMIA COSTOCHONDRIATUS BULGING DISC L4-5 AND L5-S1 ARTHRITIS BONE SPUR LEFT HIP SLEEP APNEA DIABETES NECK PAIN CA--CERVICLE PSORIOSIS DDD BONE SPURS IN NECK ALLERGIES CODEINE PHOSPHATE (FOR ALLERGIES USE ONLY): N/V/D: SIDE EFFECTS CRAB MEAT: RASH ON FACE: ALLERGY REVIEW OF SYSTEMS CONSTITUTIONAL: ANY CHANGE IN YOUR MEDICAL CONDITION? NO . CHILLS NO . FEVER NO . INFECTION: DO YOU HAVE NEW INFECTIONS? NO . DO YOU HAVE HISTORY OF MRSA? NO . MUSCULOSKELETAL: ANY NEW PATTERNS OF PAIN OR NUMBNESS? YES PT STATES HER PAIN/STIFFNESS IN NECK HAD IMPROVED SOME WITH PHYSICAL THERAPY, BUT NOW SEEMS TO BE RIGHT BACK TO BASELINE. . GASTROENTEROLOGY: ANY NEW CHANGE IN BOWEL CONTROL? NO . GENITOURINARY: ANY NEW CHANGE IN BLADDER CONTROL? NO . IS THERE A CHANCE YOU COULD BE ? NO . HEMATOLOGY/LYMPH: DO YOU TAKE ANY BLOOD THINNERS? (FOR EXAMPLE- COUMADIN, PLAVIX, AGGRENOX, PLATEL, PRADAXA, OR XARELTO) NO . WHEN WAS YOUR LAST DOSE? DATE: TIME: . NEUROLOGY: HAVE YOU FALLEN IN THE PAST 6 MONTHS? NO . ANY NEW EXTREMITY NUMBNESS OR WEAKNESS? NO . CARDIOLOGY: DO YOU HAVE A PACEMAKER OR DEFIBRILLATOR? NO . RESPIRATORY: HAVE YOU BEEN SICK IN THE PAST WEEK? NO . FEVER NO . FLU LIKE SYMPTOMS? NO . COUGH NO . INTEGUMENTARY: DO YOU HAVE ANY RASHES OR OPEN SORES? YES PT HAS PSORIASIS . ALLERGIC/IMMUNO: ARE YOU ALLERGIC TO SHELLFISH OR IV DYE? YES CRAB MEAT ONLY . ANY NEW ALLERGIES? NO . PSYCHIATRIC: DO YOU HAVE THOUGHTS OF HURTING YOURSELF OR SOMEONE ELSE? NO . ARE YOU ABUSED, NEGLECTED, OR IN AN UNSAFE ENVIRONMENT? NO . ENDOCRINOLOGY: ARE YOU DIABETIC? YES . OTHER: DO YOU NEED ANY PRESCRIPTIONS? NO . IF YES, PLEASE LIST: ____ . ANY NEW PROBLEMS WITH YOUR MEDICATIONS? NO . WHEN DID YOU LAST EAT? ____ . WHEN DID YOU LAST DRINK? ____ . WHAT DID YOU LAST DRINK? ____ . NAME OF PERSON DRIVING YOU HOME? ____ . DO YOU HAVE ANY OTHER QUESTIONS OR CONCERNS YES PT STILL HAS NOT GOTTEN LYRICA . REVIEWED BY: PROVIDER: STEVIE DALTON FARM SUPERVISOR . VITAL SIGNS WT 223.8 LBS, HT 64 IN, BMI 38.41 INDEX, BP 132/69 MM HG, HR 67 /MIN, RR 16 /MIN, TEMP 96.7 F, OXYGEN SAT % 97%, SAFE IN ENV? (Y/N) YES, NA INITIALS SC 10:38, REVIEWED BY: ARCHIE. EXAMINATION GENERAL EXAMINATION: GENERAL APPEARANCE:ACCOMPANIED BY FOR VISIT. PSYCHORIENTED X 3 , APPROPRIATE MOOD AND AFFECT , ALERT . LUNGS:CLEAR TO AUSCULTATION BILATERALLY, DECREASED AIR ENTRY AT BASES. HEART:HEART RATE REGULAR. MUSCULOSKELETAL:MUSCLE STRENGTH TESTING 5/5 BILATERAL UPPER AND LOWER EXTREMITIES BOTH DISTALLY AND PROXIMALLY. POINT TENDERNESS OVER CERVICAL SPINOUS PROCESSES. , TRIGGER POINTS AND TIGHT FIBROUS BANDS IDENTIED OVER BILATER TRAPEZIUS MUSCLES AND ACROSS THE LUMBOSACRAL AXIS. ROM DECREASED WITH NECK FLEXION, ROTATION AND EXTENSION, AND WITH BACK ROTATION. POSTURE UPRIGHT. GAIT NONANTALGIC. SKIN:SCALEY FLAKY PATCHES ON RIGHT FOREARM, PALMS OF BOTH HANDS. ASSESSMENTS MYALGIA - M79.1 (PRIMARY) SPONDYLOSIS WITHOUT MYELOPATHY OR RADICULOPATHY, CERVICAL REGION - M47.812 TREATMENT MYALGIA START BACLOFEN TABLET, 10 MG, 1 TABLET WITH FOOD OR MILK, ORALLY, THREE TIMES A DAY, 30 DAY(S), 90, REFILLS 2 START FIORICET CAPSULE, 50-300-40 MG, 1 CAPSULE NEEDED, ORALLY, EVERY 6 HRS PRN PAIN MDD=4, 30 DAY(S), 30, REFILLS 1 STOP TIZANIDINE HCL TABLET, 4 MG, 1 TABLET NEEDED, ORALLY, THREE TIMES A DAY NOTES: TENS UNIT - APPLY TO NECK/SHOULDER. PROCEDURE CODES FA211 ESTABILISHED PATIENT [facility] CHARGE DISPOSITION & COMMUNICATION FOLLOW UP 3 WEEKS ELECTRONICALLY SIGNED BY DONALD QUIGLEY ON 08/06/2016 AT 08:41 AM EDT DISCLAIMER : THIS IS A VISIT SUMMARY EXTRACTED FROM THE [employer] CHART. IT IS NOT A COPY OF THE [employer] PROGRESS NOTE. MTDD
== END ==
LOC: M PAIN 10:40
PROVIDERS: ATTEND Nurse Practitioner Family
DX: G89.29 Other chronic pain (principal); M79.1 Myalgia; M47.812 Spondylosis without myelopathy or radiculopathy, cervical region; I10 Essential (primary) hypertension; F32.9 Major depressive disorder, single episode, unspecified; F41.9 Anxiety disorder, unspecified; E78.5 Hyperlipidemia, unspecified; M19.90 Unspecified osteoarthritis, unspecified site; G47.30 Sleep apnea, unspecified; E11.9 Type 2 diabetes mellitus without complications; M51.9 Unspecified thoracic, thoracolumbar and lumbosacral intervertebral disc disorder; Z88.5 Allergy status to narcotic agent; Z91.013 Allergy to seafood; Z79.84 Long term (current) use of oral hypoglycemic drugs; Z79.899 Other long term (current) drug therapy

== ENCOUNTER → 2016-07-19 | Outpatient (CLI) | payer OTHER ==
--- NOTE | 2016-07-19 09:59 | REPMRS ---
Patient History The patient states she had a clinical breast exam in 2015. Family history of unknown cancer in father and endometrial cancer in mother at age 50. Patient states she had a complete hysterectomy at 28. Digital Mammo Screening Bilat: July 19, 2016 - Exam #: [id number] Bilateral CC and MLO view(s) were taken. Technologist: Mae Asencio, Technologist Prior study comparison: April 19, 2015, bilateral digital mammo screening bilat performed at [facility]. December 09, 2013, digital mammo diagnostic bilateral performed at [facility]. FINDINGS: There are scattered fibroglandular densities. There has been no change in the appearance of the mammogram from the prior studies. There is a mild amount of residual fibroglandular tissue which is fairly symmetric. There is no interval development of dominant mass, architectural distortion, or clustered microcalcification suggestive of malignancy. ASSESSMENT: BI-RADS/ACR category 1 mammogram. Negative. Recommendation Routine screening mammogram in 1 year (for women over age 40). This mammogram was interpreted with the aid of an FDA-approved computer-aided dectection system. Electronically Signed By: Con Nova MD 07/19/16 0959
== END ==
LOC: M RAD 08:25
PROVIDERS: ATTEND Nurse Practitioner Family
DX: Z12.31 Encounter for screening mammogram for malignant neoplasm of breast (principal)

== ENCOUNTER → 2016-08-17 | Outpatient (CLI) | payer OTHER ==
--- NOTE | 2016-09-05 00:50 | ECWPNPC ---
PATIENT NAME: KEMAL ZEE : 1975 GENDER: FEMALE VISIT DATE: 08/17/2016 DISCHARGE DATE: 08/17/16 0954 VISIT LOCKED DATE TIME: PHYSICIAN: STEVIE DALTON RESOURCE: STEVIE DALTON REASON FOR APPOINTMENT 1. NECK HISTORY OF PRESENT ILLNESS HISTORY OF PRESENT ILLNESS: PAIN THE PATIENT DESCRIBES THE PAIN... FALL RISK SCREENING: SCREENING :NO FALLS IN THE PAST YEAR TODAY'S VISIT: NOTES: RATES PAIN TODAY 5/10. DESCRIBES PAIN CONSTANT AND ACHING. HAS BEEN HAVING TROUBLE SLEEPING. THERAPY WAS HELPING BUT CAN'T DEAL WITH THE CO-PAYS. IS DOING HEP. HAS NOT BEEN ABLE TO START LYRAICA. HAS NOTED AN IMPROVEMENT IN NECK MOVEMENT. CURRENT MEDICATIONS TAKING VENTOLIN HFA 90 MCG/ACT AEROSOL SOLUTION 2 PUFFS NEEDED INHALATION EVERY 4 HRS TAKING GLUCOTROL XL 2.5 MG TABLET EXTENDED RELEASE 1 TABLET ORALLY ONCE A DAY TAKING LOSARTAN POTASSIUM 25 MG TABLET 1 TABLET ORALLY ONCE A DAY TAKING ZYRTEC 10 MG TABLET 1 TABLET ORALLY ONCE A DAY TAKING NEXIUM 40 MG CAPSULE DELAYED RELEASE 1 CAPSULE ORALLY ONCE A DAY TAKING SIMVASTATIN 10 MG TABLET 1 TABLET IN THE EVENING ORALLY ONCE A DAY TAKING PAROXETINE HCL ER 37.5 MG TABLET EXTENDED RELEASE 24 HOUR 1 TABLET IN THE MORNING ORALLY ONCE A DAY TAKING MOMETASONE-AMMONIUM LACTATE 0.1 & 12 % KIT EXTERNALLY PRN TAKING MOTRIN PM 200-38 MG TABLET 2 TABLETS AT BEDTIME NEEDED ORALLY ONCE A DAY TAKING OTEZLA 30 MG TABLET 1 TABLET ORALLY TWICE A DAY TAKING GABAPENTIN 300 MG CAPSULE 1 CAPSULE ORALLY BEFORE BEDTIME FOR PAIN TAKING BACLOFEN 10 MG TABLET 1 TABLET WITH FOOD OR MILK ORALLY THREE TIMES A DAY TAKING FIORICET 50-300-40 MG CAPSULE 1 CAPSULE NEEDED ORALLY EVERY 6 HRS PRN PAIN MDD=4 NOT-TAKING LYRICA 75 MG CAPSULE 1 CAPSULE ORALLY TWICE A DAY NOT-TAKING FLEXERIL 10 MG TABLET 1 TABLET ORALLY THREE TIMES A DAY NOT-TAKING DICLOFENAC SODIUM 75 MG TABLET DELAYED RELEASE 1 TABLET WITH FOOD OR MILK ORALLY TWICE A DAY MEDICATION LIST REVIEWED AND RECONCILED WITH THE PATIENT PAST MEDICAL HISTORY HTN DEPRESSION / ANXIETY BRONCHIATUS HYPERLIPEDEMIA COSTOCHONDRIATUS BULGING DISC L4-5 AND L5-S1 ARTHRITIS BONE SPUR LEFT HIP SLEEP APNEA DIABETES NECK PAIN CA--CERVICLE PSORIOSIS DDD BONE SPURS IN NECK ALLERGIES CODEINE PHOSPHATE (FOR ALLERGIES USE ONLY): N/V/D: SIDE EFFECTS CRAB MEAT: RASH ON FACE: ALLERGY SOCIAL HISTORY GENERAL: ANGLICAN [id number] NONE LEARNING BARRIERS / SPECIAL NEEDS BARRIERS TO LEARNING?NO HEARING IMPAIRED?NO VISION IMPAIRED?YES :CORRECTIVE LENSES COGNITIVELY IMPAIRED?NO READINESS TO LEARN?YES LEARNING PREFERENCES?NO LEARNING CAPABILITIES PRESENT?YES EMOTIONAL BARRIERS?NO SPECIAL DEVICES?YES :CANE PROJECT ADMINISTRATIVE ASSISTANT NEEDED?NO PAIN CLINIC PFS, CLERGY, PUBLIC HEALTH REFERRALS PFS REFERRAL NEEDED?NO CLERGY REFERRAL NEEDED?NO PUBLIC HEALTH REFERRAL NEEDED?NO WAS THE PROVIDER NOTIFIED OF ANY PERTINENT INFO?NO HAS THE PATIENT BEEN EDUCATED REGARDING HIS/HER PLAN OF CARE?YES HAS THE PATIENT BEEN EDUCATED REGARDING PAIN, THE RISK FOR PAIN, THE IMPORTANCE OF EFFECTIVE PAIN MANAGEMENT, AND THE PAIN ASSESSMENT PROCESS?YES PATIENT: ____. PLAN OF CARE FOR THE PAIN CENTER REVIEWED WITH PATIENT AND SHE VERBALIZED UNDERSTANDING. REVIEW OF SYSTEMS REVIEWED BY: PROVIDER: STEVIE BLANDON . CONSTITUTIONAL: ANY CHANGE IN YOUR MEDICAL CONDITION? NO . CHILLS NO . FEVER NO . INFECTION: DO YOU HAVE NEW INFECTIONS? NO . DO YOU HAVE HISTORY OF MRSA? NO . MUSCULOSKELETAL: ANY NEW PATTERNS OF PAIN OR NUMBNESS? NO . GASTROENTEROLOGY: ANY NEW CHANGE IN BOWEL CONTROL? NO . GENITOURINARY: ANY NEW CHANGE IN BLADDER CONTROL? NO . IS THERE A CHANCE YOU COULD BE ? NO . HEMATOLOGY/LYMPH: DO YOU TAKE ANY BLOOD THINNERS? (FOR EXAMPLE- COUMADIN, PLAVIX, AGGRENOX, PLATEL, PRADAXA, OR XARELTO) NO . WHEN WAS YOUR LAST DOSE? DATE: TIME: . NEUROLOGY: HAVE YOU FALLEN IN THE PAST 6 MONTHS? NO . ANY NEW EXTREMITY NUMBNESS OR WEAKNESS? NO . CARDIOLOGY: DO YOU HAVE A PACEMAKER OR DEFIBRILLATOR? NO . RESPIRATORY: HAVE YOU BEEN SICK IN THE PAST WEEK? NO . FEVER NO . FLU LIKE SYMPTOMS? NO . COUGH NO . INTEGUMENTARY: DO YOU HAVE ANY RASHES OR OPEN SORES? YES, PSORIASIS . ALLERGIC/IMMUNO: ARE YOU ALLERGIC TO SHELLFISH OR IV DYE? YES, CRAB MEAT . ANY NEW ALLERGIES? NO . PSYCHIATRIC: DO YOU HAVE THOUGHTS OF HURTING YOURSELF OR SOMEONE ELSE? NO . ARE YOU ABUSED, NEGLECTED, OR IN AN UNSAFE ENVIRONMENT? NO . ENDOCRINOLOGY: ARE YOU DIABETIC? YES . OTHER: DO YOU NEED ANY PRESCRIPTIONS? NO . IF YES, PLEASE LIST: ____ . ANY NEW PROBLEMS WITH YOUR MEDICATIONS? NO . WHEN DID YOU LAST EAT? ____ . WHEN DID YOU LAST DRINK? ____ . WHAT DID YOU LAST DRINK? ____ . NAME OF PERSON DRIVING YOU HOME? ____ . DO YOU HAVE ANY OTHER QUESTIONS OR CONCERNS NO . VITAL SIGNS WT 223.0 LBS, HT 64 IN, BMI 38.27 INDEX, BP 136/76 MM HG, HR 88 /MIN, RR 18 /MIN, TEMP 96.0 F, OXYGEN SAT % 96%, NA INITIALS TL 0908, REVIEWED BY: MELANIE. EXAMINATION GENERAL EXAMINATION: GENERAL APPEARANCE:ACCOMPANIED BY FOR VISIT. PSYCHORIENTED X 3 , APPROPRIATE MOOD AND AFFECT , ALERT . LUNGS:CLEAR TO AUSCULTATION BILATERALLY. HEART:HEART RATE REGULAR. MUSCULOSKELETAL:MUSCLE STRENGTH TESTING 5/5 BILATERAL UPPER AND LOWER EXTREMITIES BOTH DISTALLY AND PROXIMALLY. POINT TENDERNESS OVER CERVICAL SPINOUS PROCESSES. , TRIGGER POINTS AND TIGHT FIBROUS BANDS IDENTIED OVER BILATERAL TRAPEZIUS MUSCLES AND ACROSS THE LUMBOSACRAL AXIS. ROM DECREASED WITH NECK FLEXION, ROTATION AND EXTENSION, AND WITH BACK ROTATION. POSTURE UPRIGHT. GAIT NONANTALGIC. SKIN:SCALEY FLAKY PATCHES ON RIGHT FOREARM. ASSESSMENTS MYALGIA - M79.1 (PRIMARY) SPONDYLOSIS WITHOUT MYELOPATHY OR RADICULOPATHY, CERVICAL REGION - M47.812 TREATMENT MYALGIA NOTES: START SOMA 350 MG AT BEDTIME FOR SLEEP AND MUSCLE RELAXER.CONTINUE EXERCISES AND STRETCHES. CONTINUE PHYSICAL THERAPY EXERCISES. CALL WHEN MEDS/SCRIPTS NEEDED. PREVENTIVE MEDICINE PAIN CLINIC TEACHING: MEDICATIONS SOMA TEACHING DONE. PROCEDURE CODES FA211 ESTABILISHED PATIENT [facility] CHARGE DISPOSITION & COMMUNICATION FOLLOW UP 7 WEEKS (REASON: NECK PAIN) ELECTRONICALLY SIGNED BY DONALD QUIGLEY ON 09/04/2016 AT 05:31 PM EDT DISCLAIMER : THIS IS A VISIT SUMMARY EXTRACTED FROM THE [employer] CHART. IT IS NOT A COPY OF THE [employer] PROGRESS NOTE. MTDD
== END ==
LOC: M PAIN 09:00
PROVIDERS: ATTEND Nurse Practitioner Family
DX: G89.29 Other chronic pain (principal); M47.812 Spondylosis without myelopathy or radiculopathy, cervical region; M79.1 Myalgia; I10 Essential (primary) hypertension; F32.9 Major depressive disorder, single episode, unspecified; F41.9 Anxiety disorder, unspecified; E78.5 Hyperlipidemia, unspecified; G47.30 Sleep apnea, unspecified; E11.9 Type 2 diabetes mellitus without complications; L40.9 Psoriasis, unspecified; Z88.5 Allergy status to narcotic agent; Z91.013 Allergy to seafood; Z79.899 Other long term (current) drug therapy

== ENCOUNTER → 2016-09-20 | Outpatient (CLI) | payer OTHER ==
--- NOTE | 2016-10-11 00:12 | ECWPNPC ---
PATIENT NAME: KEMAL ZEE : 1975 GENDER: FEMALE VISIT DATE: 09/20/2016 DISCHARGE DATE: 09/20/16 1523 VISIT LOCKED DATE TIME: PHYSICIAN: STEVIE DALTON RESOURCE: STEVIE DALTON REASON FOR APPOINTMENT 1. INCREASED PAIN HISTORY OF PRESENT ILLNESS HISTORY OF PRESENT ILLNESS: PAIN THE PATIENT DESCRIBES THE PAIN... FALL RISK SCREENING: SCREENING :NO FALLS IN THE PAST YEAR TODAY'S VISIT: NOTES: RATES PAIN TODAY 8/10. TODAY IS A BAD DAY. NO LOSS OF BOWEL CONTROL NO NUMBNESS, TINGLING, WEAKNESS LEGS. HAS BEEN ABLE TO BE ACTIVE ABOUT THE HOME. SLEEP FAIR. CURRENT MEDICATIONS TAKING VENTOLIN HFA 90 MCG/ACT AEROSOL SOLUTION 2 PUFFS NEEDED INHALATION EVERY 4 HRS TAKING GLUCOTROL XL 2.5 MG TABLET EXTENDED RELEASE 1 TABLET ORALLY ONCE A DAY TAKING LOSARTAN POTASSIUM 25 MG TABLET 1 TABLET ORALLY ONCE A DAY TAKING ZYRTEC 10 MG TABLET 1 TABLET ORALLY ONCE A DAY TAKING NEXIUM 40 MG CAPSULE DELAYED RELEASE 1 CAPSULE ORALLY ONCE A DAY TAKING SIMVASTATIN 10 MG TABLET 1 TABLET IN THE EVENING ORALLY ONCE A DAY TAKING PAROXETINE HCL ER 37.5 MG TABLET EXTENDED RELEASE 24 HOUR 1 TABLET IN THE MORNING ORALLY ONCE A DAY TAKING MOMETASONE-AMMONIUM LACTATE 0.1 & 12 % KIT EXTERNALLY PRN TAKING OTEZLA 30 MG TABLET 1 TABLET ORALLY TWICE A DAY TAKING GABAPENTIN 300 MG CAPSULE 1 CAPSULE ORALLY BEFORE BEDTIME FOR PAIN TAKING FIORICET 50-300-40 MG CAPSULE 1 CAPSULE NEEDED ORALLY EVERY 6 HRS PRN PAIN MDD=4 TAKING SOMA 350 MG TABLET 1 TABLET NEEDED ORALLY NIGHTLY NOT-TAKING MOTRIN PM 200-38 MG TABLET 2 TABLETS AT BEDTIME NEEDED ORALLY ONCE A DAY NOT-TAKING BACLOFEN 10 MG TABLET 1 TABLET WITH FOOD OR MILK ORALLY THREE TIMES A DAY NOT-TAKING LYRICA 75 MG CAPSULE 1 CAPSULE ORALLY TWICE A DAY NOT-TAKING FLEXERIL 10 MG TABLET 1 TABLET ORALLY THREE TIMES A DAY NOT-TAKING DICLOFENAC SODIUM 75 MG TABLET DELAYED RELEASE 1 TABLET WITH FOOD OR MILK ORALLY TWICE A DAY MEDICATION LIST REVIEWED AND RECONCILED WITH THE PATIENT PAST MEDICAL HISTORY HTN DEPRESSION / ANXIETY BRONCHIATUS HYPERLIPEDEMIA COSTOCHONDRIATUS BULGING DISC L4-5 AND L5-S1 ARTHRITIS BONE SPUR LEFT HIP SLEEP APNEA DIABETES NECK PAIN CA--CERVICLE PSORIOSIS DDD BONE SPURS IN NECK ALLERGIES CODEINE PHOSPHATE (FOR ALLERGIES USE ONLY): N/V/D: SIDE EFFECTS CRAB MEAT: RASH ON FACE: ALLERGY SURGICAL HISTORY HYSTERETOMY 2005 I+D OF INFECTED AREA UNDER LEFT BREAST 2010 PLATES AND SCREWS RIGHT WRIST 2011 CYSTS REMOVED ON NECK AND INNER LEFT THIGH HOSPITALIZATION/MAJOR DIAGNOSTIC PROCEDURE HOSPITALIZATIONS RELATED TO SURGERY AND CHILDBIRTH REVIEW OF SYSTEMS REVIEWED BY: PROVIDER: STEVIE BLANDON . CONSTITUTIONAL: ANY CHANGE IN YOUR MEDICAL CONDITION? NO . CHILLS NO . FEVER NO . INFECTION: DO YOU HAVE NEW INFECTIONS? NO . DO YOU HAVE HISTORY OF MRSA? NO . MUSCULOSKELETAL: ANY NEW PATTERNS OF PAIN OR NUMBNESS? NO . GASTROENTEROLOGY: ANY NEW CHANGE IN BOWEL CONTROL? NO . GENITOURINARY: ANY NEW CHANGE IN BLADDER CONTROL? NO . IS THERE A CHANCE YOU COULD BE ? NO . HEMATOLOGY/LYMPH: DO YOU TAKE ANY BLOOD THINNERS? (FOR EXAMPLE- COUMADIN, PLAVIX, AGGRENOX, PLATEL, PRADAXA, OR XARELTO) NO . WHEN WAS YOUR LAST DOSE? DATE: TIME: . NEUROLOGY: HAVE YOU FALLEN IN THE PAST 6 MONTHS? NO . ANY NEW EXTREMITY NUMBNESS OR WEAKNESS? NO . CARDIOLOGY: DO YOU HAVE A PACEMAKER OR DEFIBRILLATOR? NO . RESPIRATORY: HAVE YOU BEEN SICK IN THE PAST WEEK? NO . FEVER NO . FLU LIKE SYMPTOMS? NO . COUGH NO . INTEGUMENTARY: DO YOU HAVE ANY RASHES OR OPEN SORES? YES, TO BILAT ANTERIOR FOREARMS. PT STATES SHE HAS PSORIASIS, DAUGHTER STATES THAT WHEN SHE LIVED AT HOME WITH MOTHER, SHE HAD THE SAME EXACT RASH AFTER WASHING DISHES IN HER MOTHERS HOME, THEN WHEN SHE MOVED OUT, THE RASH WENT AWAY. . ALLERGIC/IMMUNO: ARE YOU ALLERGIC TO SHELLFISH OR IV DYE? YES, CRABMEAT . ANY NEW ALLERGIES? NO . PSYCHIATRIC: DO YOU HAVE THOUGHTS OF HURTING YOURSELF OR SOMEONE ELSE? NO . ARE YOU ABUSED, NEGLECTED, OR IN AN UNSAFE ENVIRONMENT? NO . ENDOCRINOLOGY: ARE YOU DIABETIC? YES . OTHER: DO YOU NEED ANY PRESCRIPTIONS? NO, PT STATES [facility] IS NOT HELPING . IF YES, PLEASE LIST: ____ . ANY NEW PROBLEMS WITH YOUR MEDICATIONS? NO . WHEN DID YOU LAST EAT? ____ . WHEN DID YOU LAST DRINK? ____ . WHAT DID YOU LAST DRINK? ____ . NAME OF PERSON DRIVING YOU HOME? ____ . DO YOU HAVE ANY OTHER QUESTIONS OR CONCERNS NO . VITAL SIGNS WT 221.2 LBS, HT 64 IN, BMI 37.96 INDEX, BP 141/70 MM HG, HR 88 /MIN, RR 18 /MIN, TEMP 97.6 F, OXYGEN SAT % 94%, NA INITIALS SC14:31, REVIEWED BY: EDDIE. EXAMINATION GENERAL EXAMINATION: PSYCHALERT , ORIENTED X 3 , APPROPRIATE MOOD AND AFFECT . LUNGS:CLEAR TO AUSCULTATION BILATERALLY. HEART:HEART RATE REGULAR. MUSCULOSKELETAL:RIGHT > LEFT SIJ, TRIGGER POINTS AND TIGHT FIBROUS BANDS OVER THORACIC AND LUMBAR PARAVERTEBRAL MUSCLES. ABLE TO RISE TO STANDING POSIITION. GAIT SLOW BUT NONANTALGIC. SKIN:PUNCTATE RASH TO FOREARMS. ASSESSMENTS MYALGIA - M79.1 (PRIMARY) SPONDYLOSIS WITHOUT MYELOPATHY OR RADICULOPATHY, CERVICAL REGION - M47.812 TREATMENT MYALGIA START PREDNISONE TABLET, 20 MG, 1 TABLET, ORALLY, TAKE 1 IN AM 1 AT BED X 3 DAYS AND THEN 1/2 TAB TWICE A DAY FOR 3 DAYS, 6 DAYS, 9, REFILLS 0 START NORCO TABLET, 10-325 MG, 1 TABLET NEEDED, ORALLY, EVERY 6 HRS PRN PAIN MDD=4, 7 DAYS, 28, REFILLS 0 NOTES: ALT ICE AND HEAT TO BACK. PROCEDURE CODES FA211 ESTABILISHED PATIENT [facility] CHARGE DISPOSITION & COMMUNICATION FOLLOW UP 1 MONTH (REASON: BACK) ELECTRONICALLY SIGNED BY DONALD QUIGLEY ON 10/10/2016 AT 06:18 PM EDT DISCLAIMER : THIS IS A VISIT SUMMARY EXTRACTED FROM THE [employer] CHART. IT IS NOT A COPY OF THE [facility] PROGRESS NOTE. REKHA
== END ==
LOC: M PAIN 13:45
PROVIDERS: ATTEND Nurse Practitioner Family
DX: G89.29 Other chronic pain (principal); M47.812 Spondylosis without myelopathy or radiculopathy, cervical region; M79.1 Myalgia; I10 Essential (primary) hypertension; F32.9 Major depressive disorder, single episode, unspecified; F41.9 Anxiety disorder, unspecified; E78.5 Hyperlipidemia, unspecified; M19.90 Unspecified osteoarthritis, unspecified site; G47.30 Sleep apnea, unspecified; E11.9 Type 2 diabetes mellitus without complications; L40.9 Psoriasis, unspecified; Z88.5 Allergy status to narcotic agent; Z91.013 Allergy to seafood; Z79.899 Other long term (current) drug therapy

== ENCOUNTER → 2016-10-23 | Outpatient (CLI) | payer OTHER ==
--- NOTE | 2016-11-11 23:41 | ECWPNPC ---
PATIENT NAME: KEMAL ZEE : 1975 GENDER: FEMALE VISIT DATE: 10/23/2016 DISCHARGE DATE: 10/23/16 1544 VISIT LOCKED DATE TIME: PHYSICIAN: STEVIE DALTON RESOURCE: STEVIE DALTON REASON FOR APPOINTMENT 1. BACK HISTORY OF PRESENT ILLNESS HISTORY OF PRESENT ILLNESS: PAIN THE PATIENT DESCRIBES THE PAIN... FALL RISK SCREENING: SCREENING :NO FALLS IN THE PAST YEAR TODAY'S VISIT: NOTES: RATES PAIN TODAY 8/10. DESCRIBES PAIN CONSTANT, ACHING AND THROBBING. PAIN IS CENTERED OVER LOW BACK LEFT SIDE, AND LEFTMEDIAL KNEE. THIS STARTED 4-5 DAYS AGO. NO SWELLING OR WARMH TO THE AREA. . CURRENT MEDICATIONS TAKING VENTOLIN HFA 90 MCG/ACT AEROSOL SOLUTION 2 PUFFS NEEDED INHALATION EVERY 4 HRS TAKING GLUCOTROL XL 2.5 MG TABLET EXTENDED RELEASE 1 TABLET ORALLY ONCE A DAY TAKING LOSARTAN POTASSIUM 25 MG TABLET 1 TABLET ORALLY ONCE A DAY TAKING ZYRTEC 10 MG TABLET 1 TABLET ORALLY ONCE A DAY TAKING NEXIUM 40 MG CAPSULE DELAYED RELEASE 1 CAPSULE ORALLY ONCE A DAY TAKING SIMVASTATIN 10 MG TABLET 1 TABLET IN THE EVENING ORALLY ONCE A DAY TAKING PAROXETINE HCL ER 37.5 MG TABLET EXTENDED RELEASE 24 HOUR 1 TABLET IN THE MORNING ORALLY ONCE A DAY TAKING MOMETASONE-AMMONIUM LACTATE 0.1 & 12 % KIT EXTERNALLY PRN TAKING OTEZLA 30 MG TABLET 1 TABLET ORALLY TWICE A DAY TAKING GABAPENTIN 300 MG CAPSULE 1 CAPSULE ORALLY BEFORE BEDTIME FOR PAIN TAKING NORCO 10-325 MG TABLET 1 TABLET NEEDED ORALLY EVERY 6 HRS PRN PAIN MDD=3 NOT-TAKING FIORICET 50-300-40 MG CAPSULE 1 CAPSULE NEEDED ORALLY EVERY 6 HRS PRN PAIN MDD=4 NOT-TAKING SOMA 350 MG TABLET 1 TABLET NEEDED ORALLY NIGHTLY NOT-TAKING PREDNISONE 20 MG TABLET 1 TABLET ORALLY TAKE 1 IN AM 1 AT BED X 3 DAYS AND THEN 1/2 TAB TWICE A DAY FOR 3 DAYS NOT-TAKING MOTRIN PM 200-38 MG TABLET 2 TABLETS AT BEDTIME NEEDED ORALLY ONCE A DAY NOT-TAKING BACLOFEN 10 MG TABLET 1 TABLET WITH FOOD OR MILK ORALLY THREE TIMES A DAY NOT-TAKING LYRICA 75 MG CAPSULE 1 CAPSULE ORALLY TWICE A DAY NOT-TAKING FLEXERIL 10 MG TABLET 1 TABLET ORALLY THREE TIMES A DAY NOT-TAKING DICLOFENAC SODIUM 75 MG TABLET DELAYED RELEASE 1 TABLET WITH FOOD OR MILK ORALLY TWICE A DAY MEDICATION LIST REVIEWED AND RECONCILED WITH THE PATIENT PAST MEDICAL HISTORY HTN DEPRESSION / ANXIETY BRONCHIATUS HYPERLIPEDEMIA COSTOCHONDRIATUS BULGING DISC L4-5 AND L5-S1 ARTHRITIS BONE SPUR LEFT HIP SLEEP APNEA DIABETES NECK PAIN CA--CERVICLE PSORIOSIS DDD BONE SPURS IN NECK ALLERGIES CODEINE PHOSPHATE (FOR ALLERGIES USE ONLY): N/V/D: SIDE EFFECTS CRAB MEAT: RASH ON FACE: ALLERGY REVIEW OF SYSTEMS REVIEWED BY: PROVIDER: STEVIE CARLP . CONSTITUTIONAL: ANY CHANGE IN YOUR MEDICAL CONDITION? NO . CHILLS NO . FEVER NO . INFECTION: DO YOU HAVE NEW INFECTIONS? NO . DO YOU HAVE HISTORY OF MRSA? NO . MUSCULOSKELETAL: ANY NEW PATTERNS OF PAIN OR NUMBNESS? YES, LEFT INSIDE OF KNEE . GASTROENTEROLOGY: ANY NEW CHANGE IN BOWEL CONTROL? NO . GENITOURINARY: ANY NEW CHANGE IN BLADDER CONTROL? NO . IS THERE A CHANCE YOU COULD BE ? NO . HEMATOLOGY/LYMPH: DO YOU TAKE ANY BLOOD THINNERS? (FOR EXAMPLE- COUMADIN, PLAVIX, AGGRENOX, PLATEL, PRADAXA, OR XARELTO) NO . WHEN WAS YOUR LAST DOSE? DATE: TIME: . NEUROLOGY: HAVE YOU FALLEN IN THE PAST 6 MONTHS? NO . ANY NEW EXTREMITY NUMBNESS OR WEAKNESS? NO . CARDIOLOGY: DO YOU HAVE A PACEMAKER OR DEFIBRILLATOR? NO . RESPIRATORY: HAVE YOU BEEN SICK IN THE PAST WEEK? NO . FEVER NO . FLU LIKE SYMPTOMS? NO . COUGH NO . INTEGUMENTARY: DO YOU HAVE ANY RASHES OR OPEN SORES? YES, BOTH ARMS / BEING TREATED . ALLERGIC/IMMUNO: ARE YOU ALLERGIC TO SHELLFISH OR IV DYE? YES . ANY NEW ALLERGIES? NO . PSYCHIATRIC: DO YOU HAVE THOUGHTS OF HURTING YOURSELF OR SOMEONE ELSE? NO . ARE YOU ABUSED, NEGLECTED, OR IN AN UNSAFE ENVIRONMENT? NO . ENDOCRINOLOGY: ARE YOU DIABETIC? YES . OTHER: DO YOU NEED ANY PRESCRIPTIONS? YES . IF YES, PLEASE LIST: HYDROCODONE 10/325MG . ANY NEW PROBLEMS WITH YOUR MEDICATIONS? NO . WHEN DID YOU LAST EAT? ____ . WHEN DID YOU LAST DRINK? ____ . WHAT DID YOU LAST DRINK? ____ . NAME OF PERSON DRIVING YOU HOME? ____ . DO YOU HAVE ANY OTHER QUESTIONS OR CONCERNS NO . VITAL SIGNS WT 225 LBS, HT 64 IN, BMI 38.62 INDEX, BP 134/84 MM HG, HR 72 /MIN, RR 18 /MIN, TEMP 96.6 F, OXYGEN SAT % 97%, NA INITIALS SC 14:54, REVIEWED BY: NL. EXAMINATION GENERAL EXAMINATION: PSYCHALERT , ORIENTED X 3 , APPROPRIATE MOOD AND AFFECT . LUNGS:CLEAR TO AUSCULTATION BILATERALLY. HEART:HEART RATE REGULAR. MUSCULOSKELETAL:RIGHT > LEFT SIJ, TRIGGER POINTS AND TIGHT FIBROUS BANDS OVER THORACIC AND LUMBAR PARAVERTEBRAL MUSCLES. ABLE TO RISE TO STANDING POSIITION. GAIT SLOW BUT NONANTALGIC. SKIN:PUNCTATE RASH TO FOREARMS. ASSESSMENTS MYALGIA - M79.1 (PRIMARY) SPONDYLOSIS WITHOUT MYELOPATHY OR RADICULOPATHY, CERVICAL REGION - M47.812 TREATMENT MYALGIA REFILL NORCO TABLET, 10-325 MG, 1 TABLET NEEDED, ORALLY, EVERY 6 HRS PRN PAIN MDD=3, 30 DAY(S), 90, REFILLS 0 NOTES: CONTINUE EXERCISES AND STRETCHES. USE HYDROCODONE INFREQUENTLY POSSIBLETALK TO PCP ABOUT RIGHT LEG PAIN. GO TO ER IF AREA SWELLS, OR GETS HOT. TALK TO PCP ABOUT BEING TESTED FOR FACTOR 5 LEIDEN DEFICIENCY. CLINICAL NOTES: ISTOP REGISTRY REVIEWED AND DEMNOSTRATES COMPLLIANCE.(#[id number]) BRINGS IN MEDICATIONS WHICH IS APPROPRIATE FOR WHAT WAS DISPENSED. RECENT URINE TOXICOLOGY REVIEWED. NO UNAUTHORIZED MEDICATIONS. NO ILLICIT SUBSTANCES AND PRESCRIBED MEDICATIONS WERE PRESENT. PROCEDURE CODES FA211 ESTABILISHED PATIENT [facility] CHARGE DISPOSITION & COMMUNICATION FOLLOW UP 7 WEEKS (REASON: NECK ) ELECTRONICALLY SIGNED BY DONALD QUIGLEY ON 11/11/2016 AT 07:48 AM EDT DISCLAIMER : THIS IS A VISIT SUMMARY EXTRACTED FROM THE [employer] CHART. IT IS NOT A COPY OF THE [employer] PROGRESS NOTE. REKHA
== END ==
LOC: M PAIN 15:15
PROVIDERS: ATTEND Nurse Practitioner Family
DX: G89.29 Other chronic pain (principal); M47.812 Spondylosis without myelopathy or radiculopathy, cervical region; M79.1 Myalgia; I10 Essential (primary) hypertension; E32.9 Disease of thymus, unspecified; F41.9 Anxiety disorder, unspecified; E78.5 Hyperlipidemia, unspecified; M19.90 Unspecified osteoarthritis, unspecified site; G47.30 Sleep apnea, unspecified; E11.9 Type 2 diabetes mellitus without complications; Z88.5 Allergy status to narcotic agent; Z91.018 Allergy to other foods; Z79.899 Other long term (current) drug therapy

== ENCOUNTER → 2016-12-11 | Outpatient (CLI) | payer OTHER | LOC: M PAIN 14:30 | PROVIDERS: ATTEND Nurse Practitioner Family | DX: M79.1 Myalgia (principal); M47.812 Spondylosis without myelopathy or radiculopathy, cervical region; I10 Essential (primary) hypertension; E11.9 Type 2 diabetes mellitus without complications; E78.5 Hyperlipidemia, unspecified; Z79.891 Long term (current) use of opiate analgesic; Z79.899 Other long term (current) drug therapy; Z88.5 Allergy status to narcotic agent; Z91.013 Allergy to seafood ==

== ENCOUNTER → 2017-02-13 | Outpatient (CLI) | payer OTHER | LOC: M PAIN 13:45 | DX: G89.29 Other chronic pain (principal); M79.1 Myalgia; M47.812 Spondylosis without myelopathy or radiculopathy, cervical region; Z79.891 Long term (current) use of opiate analgesic; I10 Essential (primary) hypertension; F32.9 Major depressive disorder, single episode, unspecified; F41.9 Anxiety disorder, unspecified; E78.5 Hyperlipidemia, unspecified; M51.26 Other intervertebral disc displacement, lumbar region; G47.30 Sleep apnea, unspecified; E11.9 Type 2 diabetes mellitus without complications; M46.02 Spinal enthesopathy, cervical region; L40.9 Psoriasis, unspecified; Z79.899 Other long term (current) drug therapy; Z87.891 Personal history of nicotine dependence; Z88.5 Allergy status to narcotic agent; Z91.013 Allergy to seafood | CPT/HCPCS: G0463 ==

== ENCOUNTER → 2017-03-26 | Outpatient (CLI) | payer OTHER | LOC: M PAIN 11:15 | DX: M47.812 Spondylosis without myelopathy or radiculopathy, cervical region (principal); M79.1 Myalgia; I10 Essential (primary) hypertension; F32.9 Major depressive disorder, single episode, unspecified; F41.9 Anxiety disorder, unspecified; E11.9 Type 2 diabetes mellitus without complications; E78.5 Hyperlipidemia, unspecified; M19.90 Unspecified osteoarthritis, unspecified site; L40.9 Psoriasis, unspecified; G47.30 Sleep apnea, unspecified; Z79.891 Long term (current) use of opiate analgesic; Z79.51 Long term (current) use of inhaled steroids; Z79.899 Other long term (current) drug therapy; Z88.5 Allergy status to narcotic agent; Z91.013 Allergy to seafood; Z87.891 Personal history of nicotine dependence | CPT/HCPCS: G0463 ==

== ENCOUNTER → 2017-04-26 | Outpatient (REF) | payer OTHER ==
[2017-04-26 13:26] LABS: INR 1.02; PROTHROMBIN TIME 13.5 SECONDS (12.4-14.5)
[2017-04-26 13:27] LABS: PARTIAL THROMBOPLASTIN TIME 33.1 SECONDS (26.8-37.9)
[2017-04-26 13:29] LABS: PLATELET COUNT, AUTOMATED 363 10^3/uL (150-450)
[2017-04-26 13:54] LABS: ERYTHROCYTE SEDIMENTATION RATE 36 mm/hr (0-20)
== END ==
LOC: M LAB REF 13:08
DX: R91.8 Other nonspecific abnormal finding of lung field (principal)

== ENCOUNTER → 2017-05-10 | Outpatient (CLI) | payer OTHER ==
[~2017-05-10] MED LIST changes: -/PARO37TCR; -ACET65TA; -ATIV1TAB2; -BYSTOLIC; -CLOTRIMAZOLE; +LIDOCAINE 1% MDV 20ML VIAL As Ordered; -PERC5TAB8; -SIMV20TA2; -TRAM50TA2
== END ==
LOC: M RADPRO 10:22
DX: R91.8 Other nonspecific abnormal finding of lung field (principal); D14.32 Benign neoplasm of left bronchus and lung; Z88.5 Allergy status to narcotic agent; Z91.013 Allergy to seafood; Z79.899 Other long term (current) drug therapy
CPT/HCPCS: 32405

== ENCOUNTER → 2017-06-14 | Outpatient (CLI) | payer OTHER | END | disposition home or self-care (01) | LOC: M PAIN 11:30 | DX: G89.29 Other chronic pain (principal); M79.1 Myalgia; M47.812 Spondylosis without myelopathy or radiculopathy, cervical region; I10 Essential (primary) hypertension; F33.9 Major depressive disorder, recurrent, unspecified; F41.9 Anxiety disorder, unspecified; E78.5 Hyperlipidemia, unspecified; M51.26 Other intervertebral disc displacement, lumbar region; M51.27 Other intervertebral disc displacement, lumbosacral region; G47.30 Sleep apnea, unspecified; E11.9 Type 2 diabetes mellitus without complications; L40.9 Psoriasis, unspecified; Z79.899 Other long term (current) drug therapy; Z88.5 Allergy status to narcotic agent; Z91.013 Allergy to seafood; Z87.891 Personal history of nicotine dependence | CPT/HCPCS: G0463 ==

== ENCOUNTER → 2017-09-27 | Outpatient (CLI) | payer OTHER | LOC: M PAIN 14:15 | DX: M79.1 Myalgia (principal); M47.812 Spondylosis without myelopathy or radiculopathy, cervical region; E11.9 Type 2 diabetes mellitus without complications; I10 Essential (primary) hypertension; F32.9 Major depressive disorder, single episode, unspecified; F41.9 Anxiety disorder, unspecified; E78.5 Hyperlipidemia, unspecified; M19.90 Unspecified osteoarthritis, unspecified site; G47.30 Sleep apnea, unspecified; L40.9 Psoriasis, unspecified; Z79.891 Long term (current) use of opiate analgesic; Z79.899 Other long term (current) drug therapy; Z88.5 Allergy status to narcotic agent; Z91.013 Allergy to seafood; Z87.891 Personal history of nicotine dependence | CPT/HCPCS: G0463 ==

== ENCOUNTER → 2017-11-28 | Outpatient (CLI) | payer OTHER ==
[~2017-11-28] MED LIST changes: +GASTROGRAFIN SOLUTION 30ML (Q9963) As Ordered; +ISOVUE-370 76% 100ML VIAL (Q9967) As Ordered; -LIDOCAINE 1% MDV 20ML VIAL As Ordered
== END ==
LOC: M RAD 11:09
DX: Z12.31 Encounter for screening mammogram for malignant neoplasm of breast (principal)

== ENCOUNTER → 2017-12-10 | Outpatient (CLI) | payer OTHER | LOC: M PLARAD 13:19 | DX: R91.1 Solitary pulmonary nodule (principal) | CPT/HCPCS: 78815 ==

== ENCOUNTER → 2018-04-10 | Outpatient (REF) | payer OTHER ==
[~2018-04-10] MED LIST changes: +/PARO37TCR; +ACET65TA; +ATIV1TAB2; +BYSTOLIC; +CLOTRIMAZOLE; -GASTROGRAFIN SOLUTION 30ML (Q9963) As Ordered; -ISOVUE-370 76% 100ML VIAL (Q9967) As Ordered; +PERC5TAB8; +SIMV20TA2; +TRAM50TA2
[2018-04-10 18:05] LABS: PROTHROMBIN TIME 13.3 SECONDS (12.1-14.4)
[2018-04-10 18:06] LABS: PARTIAL THROMBOPLASTIN TIME 35.7 SECONDS (25.4-37.6)
== END ==
LOC: M LAB REF 17:04
PROVIDERS: ATTEND Internal Medicine Pulmonary Disease
DX: R91.1 Solitary pulmonary nodule (principal)

== ENCOUNTER → 2018-04-28 | Outpatient (CLI) | payer OTHER ==
[~2018-04-28] MED LIST changes: +LIDOCAINE 1% MDV 20ML VIAL As Ordered ONE
--- NOTE | 2018-04-28 12:48 | REP ---
POST-BIOPSY CHEST: 04/28/2018. Comparison CT guided needle biopsy 04/28/2018, CT 03/31/2018 from outside facility. FINDINGS: Lungs are hypoinflated because of the excretory technique. There is a nodule the left mid upper lung zone, which was the target for biopsy. I do not see a pleural effusion, pneumothorax or pneumomediastinum. There are no other significant findings or interval change. IMPRESSION: 1. A left mid upper lung zone nodule, status post transthoracic needle biopsy. No visible effusion or definite pneumothorax. Discussed with her postprocedure radiology recovery nurse. Electronically Signed by James Raymundo MD 04/28/2018 07:52 P
--- NOTE | 2018-04-29 06:22 | REP ---
CT-GUIDED LEFT UPPER LOBE LUNG BIOPSY: The procedure was performed under the direct supervision of Dr. Raymundo. The patient has a history of a 1 cm in nodule which shows discernible, but not hypermetabolic FDP accumulation, seen on a previous PET scan dated 12/10/2017. The risks and benefits of the procedure were explained to the patient and informed consent was obtained. The left upper lobe lung nodule was localized using CT guidance. The skin was prepped and draped in a sterile fashion. 1% lidocaine was used as a local anesthetic. Using CT guidance a 19/20 gauge coaxial needle biopsy system was inserted and advanced into the nodule. Three core biopsy samples were obtained and sent to lab. The patient tolerated the procedure well and there were no immediate complications. After the appropriate amount of monitored convalescence the patient was discharged from the department. Reviewed by JOYCE Cabrera 04/28/2018 03:32 P Edited and Electronically Signed by James Raymundo MD 04/29/2018 08:30 P
== END ==
LOC: M RADPRO 07:42
PROVIDERS: ATTEND Internal Medicine Pulmonary Disease
DX: C34.12 Malignant neoplasm of upper lobe, left bronchus or lung (principal); Z88.5 Allergy status to narcotic agent; Z91.040 Latex allergy status; Z87.891 Personal history of nicotine dependence

== ENCOUNTER → 2018-05-13 | Outpatient (CLI) | payer OTHER ==
[~2018-05-13] MED LIST changes: -LIDOCAINE 1% MDV 20ML VIAL As Ordered ONE
--- NOTE | 2018-05-13 15:39 | PFTRPT ---
Height: 64.00 Inches Weight: 230.00 Lbs BSA: 2.08 Diagnosis: R94.2 DATE OF PROCEDURE: 05/13/2018 ORDERED BY: Dr. Israel Spirometry: Pre and post bronchodilator study of excellent technical quality. Forced vital capacity reduced. FEV1 in proportion. Obstructive index is, therefore, normal. Flow Volume Loop: Expiratory limb of the flow volume loop does suggest some nonspecific limitation. Lung Volumes: Total lung capacity normal. Residual volume suggests a degree of air trapping. Diffusing Capacity: Diffusing capacity, although reduced, is appropriate for alveolar volume. Hemoglobin: Hemoglobin reduced at 10.8. Airway Mechanics: Airway resistance minimally elevated with concomitant decrease in airway conductance. IMPRESSION: Underlying air trapping. Diffusing capacity impairment, probably on the basis of anemia. Please correlate clinically. MTDD
== END ==
LOC: M CARPUL 14:43
PROVIDERS: ATTEND Internal Medicine Pulmonary Disease
DX: R94.2 Abnormal results of pulmonary function studies (principal)

== ENCOUNTER → 2018-05-13 | Outpatient (CLI) | payer OTHER ==
--- NOTE | 2018-05-27 00:47 | ECWPNPC ---
PATIENT NAME: KEMAL ZEE : 1975 GENDER: FEMALE VISIT DATE: 05/13/2018 DISCHARGE DATE: 05/13/18 1137 VISIT LOCKED DATE TIME: PHYSICIAN: OSWALDO JIMENEZ RESOURCE: OSWALDO JIMENEZ REASON FOR APPOINTMENT 1. BACK PAIN PT OF SW HISTORY OF PRESENT ILLNESS HISTORY OF PRESENT ILLNESS: HERE FOR CHRONIC LOW BACK PAIN.SHE REFUSES INJECTION THERAPY.RATING PAIN VAS 8/10.FINDS CURRENT MEDICATION HELPFUL AT REDUCING PAIN AND KEEPING HER COMFORTABLE.DIDNT BRING MEDICATION WITH HER TODAY.RECENT DIAGNOSIS OF LEFT LUNG CANCER. PAIN THE PATIENT DESCRIBES THE PAIN... FALL RISK SCREENING: SCREENING :NO FALLS REPORTED IN THE LAST YEAR CURRENT MEDICATIONS TAKING VENTOLIN HFA 90 MCG/ACT AEROSOL SOLUTION 2 PUFFS NEEDED INHALATION EVERY 4 HRS TAKING GLUCOTROL XL 5 MG TABLET EXTENDED RELEASE 24 HOUR 1 TABLET ORALLY ONCE A DAY TAKING LOSARTAN POTASSIUM 25 MG TABLET 1 TABLET ORALLY ONCE A DAY TAKING ZYRTEC 10 MG TABLET 1 TABLET ORALLY ONCE A DAY TAKING SIMVASTATIN 10 MG TABLET 1 TABLET IN THE EVENING ORALLY ONCE A DAY TAKING PAROXETINE HCL ER 37.5 MG TABLET EXTENDED RELEASE 24 HOUR 1 TABLET IN THE MORNING ORALLY ONCE A DAY TAKING MOMETASONE-AMMONIUM LACTATE 0.1 & 12 % KIT EXTERNALLY PRN TAKING OTEZLA 30 MG TABLET 1 TABLET ORALLY TWICE A DAY TAKING GABAPENTIN 300 MG CAPSULE 1 CAPSULE ORALLY BEFORE BEDTIME FOR PAIN TAKING OMEPRAZOLE 40 MG CAPSULE DELAYED RELEASE 1 CAPSULE ORALLY ONCE A DAY TAKING NORCO 10-325 MG TABLET 1 TABLET NEEDED ORALLY EVERY 6 HRS PRN PAIN MDD=3 TAKING CEFTIN 500 MG TABLET 1 TABLET ORALLY EVERY 12 HRS NOT-TAKING NEXIUM 40 MG CAPSULE DELAYED RELEASE 1 CAPSULE ORALLY ONCE A DAY NOT-TAKING PREDNISONE 10 MG TABLET 1 TABLET ORALLY TAKE 5 TABS X 2 DAYS, 4 TAB X 2 DAY, 3 TAB X 2 DAY, 2 TABX 2 DAY, 1 TAB X 2 DAY NOT-TAKING FIORICET 50-300-40 MG CAPSULE 1 CAPSULE NEEDED ORALLY EVERY 6 HRS PRN PAIN MDD=4 NOT-TAKING SOMA 350 MG TABLET 1 TABLET NEEDED ORALLY NIGHTLY NOT-TAKING MOTRIN PM 200-38 MG TABLET 2 TABLETS AT BEDTIME NEEDED ORALLY ONCE A DAY NOT-TAKING LYRICA 75 MG CAPSULE 1 CAPSULE ORALLY TWICE A DAY NOT-TAKING FLEXERIL 10 MG TABLET 1 TABLET ORALLY THREE TIMES A DAY NOT-TAKING DICLOFENAC SODIUM 75 MG TABLET DELAYED RELEASE 1 TABLET WITH FOOD OR MILK ORALLY TWICE A DAY MEDICATION LIST REVIEWED AND RECONCILED WITH THE PATIENT PAST MEDICAL HISTORY HTN DEPRESSION / ANXIETY BRONCHIATUS HYPERLIPEDEMIA COSTOCHONDRIATUS BULGING DISC L4-5 AND L5-S1 ARTHRITIS BONE SPUR LEFT HIP SLEEP APNEA DIABETES NECK PAIN CA--CERVICLE PSORIOSIS DDD BONE SPURS IN NECK LUNG CANCER ALLERGIES CODEINE PHOSPHATE (FOR ALLERGIES USE ONLY): N/V/D - SIDE EFFECTS CRAB MEAT: RASH ON FACE - ALLERGY SURGICAL HISTORY HYSTERETOMY 2004 I+D OF INFECTED AREA UNDER LEFT BREAST 2009 PLATES AND SCREWS RIGHT WRIST 2011 CYSTS REMOVED ON NECK AND INNER LEFT THIGH FAMILY HISTORY FATHER: 59 YRS, DIAGNOSED WITH CANCER MOTHER: ALIVE 69 YRS, HEART DISEASE, STROKE, DIABETES, HYPERTENSION SIBLINGS: ALIVE SON(S): ALIVE DAUGHTER(S): ALIVE 2 SON(S) , 1 DAUGHTER(S) . FATHER--LUNG CA\N4 BROTHERS HAVE COPD, 1BROTHER--SEIZURES\NYOUNGEST SON--ADHD. SOCIAL HISTORY GENERAL: TOBACCO USE ARE YOU A:FORMER SMOKER LATEX QUESTIONNAIRE LATEX ALLERGY : HAVE YOU EVER DEVELOPED ANY TYPE OF REACTION AFTER HANDLING LATEX PRODUCTS SUCH RUBBER GLOVES, CONDOMS, DIAPHRAGMS, BALLOONS, SOCKS, OR UNDERWEAR?NO LATEX ALLERGY : HAVE YOU EVER DEVELOPED ANY TYPE OF REACTION DURING OR AFTER DENTAL APPOINTMENT, VAGINAL/RECTAL EXAMINATION, SURGICAL PROCEDURE, OR ANY OTHER EXPOSURE?NO LATEX RISK : HAVE YOU EVER HAD ANY DIFFICULTY BREATHING OR HIVES AFTER EATING OR HANDLING ANY FRUITS, OR VEGETABLES; SUCH KIWI, BANANAS, STONE FRUITS, OR CHESTNUTSNO LATEX RISK : DO YOU HAVE A PREVIOUS PERSONAL HISTORY OF MORE THAN NINE SURGERIES, SPINA BIFIDA, OR REPEATED CATHERTIZATIONS? 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 LANGUAGE LANGUAGES SPOKEN:CYMRO LEARNING BARRIERS / SPECIAL NEEDS BARRIERS TO LEARNING?NO HEARING IMPAIRED?NO VISION IMPAIRED?YES :CORRECTIVE LENSES COGNITIVELY IMPAIRED?NO READINESS TO LEARN?YES LEARNING PREFERENCES?NO LEARNING CAPABILITIES PRESENT?YES EMOTIONAL BARRIERS?NO SPECIAL DEVICES?YES :CANE FACILITIES OFFICER NEEDED?NO PAIN CLINIC PFS, CLERGY, PUBLIC HEALTH REFERRALS PFS REFERRAL NEEDED?NO CLERGY REFERRAL NEEDED?NO PUBLIC HEALTH REFERRAL NEEDED?NO WAS THE PROVIDER NOTIFIED OF ANY PERTINENT INFO?NO HAS THE PATIENT BEEN EDUCATED REGARDING HIS/HER PLAN OF CARE?YES HAS THE PATIENT BEEN EDUCATED REGARDING PAIN, THE RISK FOR PAIN, THE IMPORTANCE OF EFFECTIVE PAIN MANAGEMENT, AND THE PAIN ASSESSMENT PROCESS?YES ADVANCE DIRECTIVE ADVANCE DIRECTIVE DISCUSSED WITH PATIENT:YES PT DOES NOT HAVE A HCP AT THIS TIME. INFORMATION GIVEN. ASSISTANCE DECLINED. 05/13/18 REVIEWED WITH PT 05/13/18 1057 BV. HOSPITALIZATION/MAJOR DIAGNOSTIC PROCEDURE HOSPITALIZATIONS RELATED TO SURGERY AND CHILDBIRTH REVIEW OF SYSTEMS REVIEWED BY: PROVIDER: OSWALDO BLANDON . CONSTITUTIONAL: ANY CHANGE IN YOUR MEDICAL CONDITION? NO . CHILLS NO . FEVER NO . INFECTION: DO YOU HAVE NEW INFECTIONS? YES, PT CURRENTLY ON CEFTIN FOR RESPIRATORY INFECTION . DO YOU HAVE HISTORY OF MRSA? NO . MUSCULOSKELETAL: ANY NEW PATTERNS OF PAIN OR NUMBNESS? YES, PT COMPLAINS OF CONSTANT ACHE IN LEFT SHOULDER FOR THE PAST COUPLE MONTHS . GASTROENTEROLOGY: ANY NEW CHANGE IN BOWEL CONTROL? NO . GENITOURINARY: ANY NEW CHANGE IN BLADDER CONTROL? NO . IS THERE A CHANCE YOU COULD BE ? NO . HEMATOLOGY/LYMPH: DO YOU TAKE ANY BLOOD THINNERS? (FOR EXAMPLE- COUMADIN, PLAVIX, AGGRENOX, PLATEL, PRADAXA, OR XARELTO) NO . WHEN WAS YOUR LAST DOSE? DATE: TIME: . NEUROLOGY: HAVE YOU FALLEN IN THE PAST 12 MONTHS? YES, PT SLIPPED ON ICE ABOUT A MONTH AGO AND FELL DOWN COUPLE STEPS. DENIES INJURIES OR ED VISIT. . ANY NEW EXTREMITY NUMBNESS OR WEAKNESS? NO . CARDIOLOGY: DO YOU HAVE A PACEMAKER OR DEFIBRILLATOR? NO . RESPIRATORY: HAVE YOU BEEN SICK IN THE PAST WEEK? NO . FEVER NO . FLU LIKE SYMPTOMS? NO . COUGH NO . INTEGUMENTARY: DO YOU HAVE ANY RASHES OR OPEN SORES? YES, PT HAS RASH TO BOTH HANDS. STATES HAS HAD THIS FOR LONG TIME AND IS TREATED WITH THE MOMENTASONE . ALLERGIC/IMMUNO: ARE YOU ALLERGIC TO IV DYE? NO . ANY NEW ALLERGIES? NO . PSYCHIATRIC: DO YOU HAVE THOUGHTS OF HURTING YOURSELF OR SOMEONE ELSE? NO . ARE YOU ABUSED, NEGLECTED, OR IN AN UNSAFE ENVIRONMENT? NO . ENDOCRINOLOGY: ARE YOU DIABETIC? YES . OTHER: DO YOU NEED ANY PRESCRIPTIONS? YES, HYDROCODONE . IF YES, PLEASE LIST: ____ . ANY NEW PROBLEMS WITH YOUR MEDICATIONS? NO . WHEN DID YOU LAST EAT? ____ . WHEN DID YOU LAST DRINK? ____ . WHAT DID YOU LAST DRINK? ____ . NAME OF PERSON DRIVING YOU HOME? ____ . DO YOU HAVE ANY OTHER QUESTIONS OR CONCERNS NO . VITAL SIGNS WT 230.6 LBS, HT 64 IN, BMI 39.58 INDEX, BP 141/70 MM HG, HR 67 /MIN, RR 18 /MIN, TEMP 97.3 F, OXYGEN SAT % 97.3, NA INITIALS SC 10:43, REVIEWED BY: BV. EXAMINATION GENERAL EXAMINATION: GENERAL APPEARANCE:AWAKE,ALERT ,PLEAASANT . PSYCHAFFECT NORMAL . LUNGS:LUNG TAFOYA ARE CLEAR TO AUSCULTATION BILATERALLY. GOOD MOVEMENT OF AIR . HEART:S1, S2 IN A REGULAR RATE AND RHYTHM. NO SIGNIFICANT MURMURS, RUBS OR GALLOPS NOTED . ASSESSMENTS MYALGIA - M79.1 (PRIMARY) SPONDYLOSIS WITHOUT MYELOPATHY OR RADICULOPATHY, CERVICAL REGION - M47.812 TREATMENT MYALGIA NOTES: ISTOP REGISTRY REVIEWED AND DEMONSTRATES COMPLLIANCE. BRINGS IN MEDICATIONS WHICH IS APPROPRIATE FOR WHAT WAS DISPENSED. RECENT URINE TOXICOLOGY REVIEWED. NO UNAUTHORIZED MEDICATIONS. NO ILLICIT SUBSTANCES AND PRESCRIBED MEDICATIONS WERE PRESENT. URINE TOX TODAY, [facility] NARCOTIC AGREEMENT WAS UPDATED/ REVIEWED AND SIGNED TODAY BY THE PATIENT. SEE ATTACHED DOCUMENT FOR FULL DETAILS; SPECIFIC ISSUES WERE REVIEWED: 1) KEEP PAIN MEDS IN THEIR ORIGINAL BOTTLES AND ANY WEEKLY PLANNERS ARE TO BE BROUGHT TO THE PAIN CENTER AT EVERY VISIT. 2) THE PATIENT IS NOT TO INCREASE DOSING OR TIMING OF THEIR PAIN MEDICATION WITHOUT SPECIFIC DIRECTION OF THEIR PAIN CENTERPROVIDER (NOT ER OR OTHER PROVIDERS). 3) ALL PAIN MEDS ARE TO BE KEPT SECURED, IN A LOCKED BOX. 4) NO PAIN MEDS ARE TO BE SHARED WITH ANY OTHER PERSON FOR ANY REASON. 5) NO PAIN MEDS MAY BE TAKEN FROM ANY FRIENDS OR RELATIVES FOR ANY REASON 6) NO MEDS OR SUBSTANCES WHICH ARE NOT LEGAL ARE TO BE USED- NO MARIJUANA, NO COCAINE, AMPHETAMINES, HEROIN, OR OTHERS ARE EVER TO BE USED. 7)URINE TESTING IS DONE TO ACCOUNT FOR MEDS AND SUBSTANCES BEING TAKEN AND WILL BE DONE RANDOMLY., RISKS AND BENEFITS OF NARCOTIC/OPIOD MEDICATIONS WERE REVIEWED WITH PATIENT - THIS INCLUDES BUT IS NOT LIMITED TO RISK OF DEPENDANCE/DEVELOPMENT OF ADDICTION, MOOD DISTURBANCE AND DEPRESSION, OSTEOPOROSIS, HORMONAL AND LABIDAL CHANGES, RESPIRATORY DEPRESSION AND . PATIENT IS ADVISED NOT TO DRIVE OR DRINK ALCOHOL WHILE ON THESE MEDICATIONS. PROCEDURE CODES FA211 ESTABILISHED PATIENT [facility] CHARGE DISPOSITION & COMMUNICATION FOLLOW UP 2 MONTHS (REASON: MED MGMNT) ELECTRONICALLY SIGNED BY BARBER FLORES ON 05/26/2018 AT 04:35 PM EDT DISCLAIMER : THIS IS A VISIT SUMMARY EXTRACTED FROM THE [employer] CHART. IT IS NOT A COPY OF THE [employer] PROGRESS NOTE. BALTAZARD
== END ==
LOC: M PAIN 10:15
PROVIDERS: ATTEND Nurse Practitioner Family
DX: M79.10 Myalgia, unspecified site (principal); M47.812 Spondylosis without myelopathy or radiculopathy, cervical region; C34.92 Malignant neoplasm of unspecified part of left bronchus or lung; I10 Essential (primary) hypertension; Z86.59 Personal history of other mental and behavioral disorders; E78.5 Hyperlipidemia, unspecified; M19.90 Unspecified osteoarthritis, unspecified site; G47.30 Sleep apnea, unspecified; E11.9 Type 2 diabetes mellitus without complications; Z87.891 Personal history of nicotine dependence; Z88.5 Allergy status to narcotic agent; Z91.013 Allergy to seafood; Z79.84 Long term (current) use of oral hypoglycemic drugs; Z79.899 Other long term (current) drug therapy

== ENCOUNTER → 2018-06-16 | Outpatient (CLI) | payer OTHER ==
[~2018-06-16] MED LIST changes: +CETI5SOL3 PO; +GABA-845 PO; +GLIP-162 PO; +HYDR-4517 PO; +IBUP200C33 PO; +LOSA25TA14 PO; +OMEP40CA2 PO; +OTEZ1TAB3 PO; +PARO37.54 PO; +SIMV10TA2 PO; +SPIR1CAP INH; +VENTAER INH
[2018-06-16 13:32] LABS: HEMATOCRIT 38.8 % (36.0-47.0); HEMOGLOBIN 11.9 g/dl (12.0-15.5); MEAN CORPUSCULAR HEMOGLOBIN 26.4 pg (27.0-33.0); MEAN CORPUSCULAR HGB CONC 30.7 g/dl (32.0-36.5); PLATELET COUNT, AUTOMATED 362 10^3/uL (150-450); RED BLOOD COUNT 4.51 10^6/uL (4.00-5.40); WHITE BLOOD COUNT 6.2 10^3/uL (4.0-10.0)
[2018-06-16 13:42] LABS: ABG BASE EXCESS -2.6 (-2.0-2.0); ABG HCO3 21.2 MEQ/L (22.0-26.0); ABG PARTIAL PRESSURE CO2 33.6 mmHg (35.0-45.0); ABG PARTIAL PRESSURE O2 93.6 mmHg (75.0-100.0); ABG SITE ART LINE; ABG STANDARD HCO3 22.3 MEQ/L (22.0-26.0); ABG TOTAL CO2 22.2 MEQ/L (22.0-29.0); ABG pH (ARTERIAL) 7.418 UNITS (7.350-7.450); CARBOXYHEMOGLOBIN 0.7 % (0.0-1.5)
[2018-06-16 13:44] LABS: INR 0.96; PROTHROMBIN TIME 12.9 SECONDS (12.1-14.4)
[2018-06-16 13:45] LABS: PARTIAL THROMBOPLASTIN TIME 34.7 SECONDS (25.4-37.6)
[2018-06-16 13:50] LABS: APPEARANCE, URINE CLOUDY (CLEAR); BACTERIA, URINE AUTO 1+ (NEGATIVE); BILIRUBIN, URINE AUTO NEGATIVE (NEGATIVE); BLOOD, URINE BLOOD NEGATIVE (NEGATIVE); COLOR, URINE YELLOW (YELLOW); GLUCOSE, URINE (UA) AUTO NEGATIVE (NEGATIVE); KETONE, URINE AUTO NEGATIVE (NEGATIVE); LEUKOCYTE ESTERASE, URINE AUTO TRACE (NEGATIVE); MUCUS, URINE SMALL (NEGATIVE); NITRITE, URINE AUTO NEGATIVE (NEGATIVE); PROTEIN, URINE AUTO NEGATIVE (NEGATIVE); RBC, URINE AUTO 4 /HPF (0-3); SPECIFIC GRAVITY URINE AUTO 1.016 (1.002-1.035); SQUAMOUS EPITHELIAL CELL UR AU 15 /HPF (0-6); UROBILINOGEN, URINE AUTO 0.2 mg/dL (0.0-2.0); WBC, URINE AUTO 3 /HPF (0-3)
[2018-06-16 13:52] LABS: BLOOD UREA NITROGEN 10 MG/DL (7-18); CARBON DIOXIDE LEVEL 30 MEQ/L (21-32); CHLORIDE LEVEL 105 MEQ/L (98-107); CREATININE FOR GFR 0.81 MG/DL (0.55-1.30); GLOMERULAR FILTRATION RATE > 60.0 (>58); GLUCOSE, FASTING 87 MG/DL (70-100); POTASSIUM SERUM 3.9 MEQ/L (3.5-5.1); SODIUM LEVEL 140 MEQ/L (136-145)
--- NOTE | 2018-06-16 14:08 | REP ---
Chest two views HISTORY: Lung cancer Comparison: 04/28/2018 The lungs are clear. The heart is normal in size. The pulmonary vasculature is normal in appearance. The bony structure is intact. IMPRESSION: No acute disease. Electronically Signed by Vasile Hendricks MD 06/16/2018 01:59 P
--- NOTE | 2018-06-17 06:32 | ECGEPIP ---
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
== END ==
LOC: M ADMPAT 12:23
PROVIDERS: ATTEND Thoracic Surgery (Cardiothoracic Vascular Surgery)
DX: R91.8 Other nonspecific abnormal finding of lung field (principal)

== ENCOUNTER → 2018-07-02 | Outpatient (CLI) | payer OTHER ==
[~2018-07-02] MED LIST changes: +ALL10TAB28 PO; +ISOVUE-370 76% 100ML VIAL (Q9967) As Ordered ONE; +NEUR300C PO; +TRAZ-160 PO
--- NOTE | 2018-07-03 05:08 | REP ---
Clinical: Neoplasm. Technique: Axial contrast enhanced images from the thoracic inlet to the upper abdomen with coronal and sagittal re-formations using 100 ml Isovue 370 intravenous contrast material. Comparison: 03/31/2018. Findings: 1.6 cm solid lesion with subtle spiculated margins in the posterior segment left upper lobe (image 39) remains unchanged compared to 03/31/2018 and compatible with malignancy until proven otherwise. A small 2 mm nodular focus is also appreciated in the periphery of the right upper lobe (image 45) which remains stable as well. No further consolidation, effusion or pneumothorax. No significant adenopathy identified. Mediastinum demonstrates normal thoracic aorta, pulmonary vasculature and heart/pericardium. Surrounding musculoskeletal structures are intact. Limited upper abdomen demonstrate mild prominence to the left adrenal gland along with bilateral adrenal calcifications suggesting prior insult. Impression: 1. 1.6 cm solid lesion in the left upper lobe and 2 mm nodule in the periphery of the right upper lobe remain similar/stable compared to 03/31/2018. No adenopathy identified. No effusion. Electronically Signed by Anam Woodall MD 07/03/2018 04:59 A
== END ==
LOC: M RAD 17:57
PROVIDERS: ATTEND Thoracic Surgery (Cardiothoracic Vascular Surgery)
DX: C34.12 Malignant neoplasm of upper lobe, left bronchus or lung (principal)
CPT/HCPCS: 71260; Q9967

== ENCOUNTER → 2018-07-21 | Outpatient (CLI) | payer OTHER ==
[~2018-07-21] MED LIST changes: -ISOVUE-370 76% 100ML VIAL (Q9967) As Ordered ONE; -TRAZ-160 PO; +TRAZ-252 PO
--- NOTE | 2018-07-22 03:25 | REP ---
Clinical: Malignant neoplasm. Technique: PA and lateral. Comparison: 07/11/2018. Findings: Postsurgical changes involving left hemithorax are appreciated. Opacity at the left lower lung zone suggest small residual left pleural effusion and atelectasis decreased from prior examination. No obvious pneumothorax. Right hemithorax is clear. Impression: Residual small area of opacity at the left lung base suggesting small effusion and atelectasis along with postsurgical changes. Electronically Signed by Anam Woodall MD 07/22/2018 03:17 A
== END ==
LOC: M SMT 09:00
PROVIDERS: ATTEND Thoracic Surgery (Cardiothoracic Vascular Surgery)
DX: C34.12 Malignant neoplasm of upper lobe, left bronchus or lung (principal); R91.8 Other nonspecific abnormal finding of lung field

== ENCOUNTER → 2018-07-21 | Outpatient (CLI) | payer OTHER ==
--- NOTE | 2018-08-05 02:40 | ECWPNPC ---
PATIENT NAME: KEMAL ZEE : 1975 GENDER: FEMALE VISIT DATE: 07/21/2018 DISCHARGE DATE: 07/21/18 1127 VISIT LOCKED DATE TIME: PHYSICIAN: OSWALDO JIMENEZ RESOURCE: OSWALDO JIMENEZ REASON FOR APPOINTMENT 1. 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 PAIN THE PATIENT DESCRIBES THE PAIN... FALL RISK SCREENING: SCREENING :NO FALLS REPORTED IN THE LAST YEAR CURRENT MEDICATIONS TAKING VENTOLIN HFA 90 MCG/ACT AEROSOL SOLUTION 2 PUFFS NEEDED INHALATION EVERY 4 HRS TAKING GLUCOTROL XL 5 MG TABLET EXTENDED RELEASE 24 HOUR 1 TABLET ORALLY ONCE A DAY TAKING LOSARTAN POTASSIUM 25 MG TABLET 1 TABLET ORALLY ONCE A DAY TAKING ZYRTEC 10 MG TABLET 1 TABLET ORALLY ONCE A DAY TAKING SIMVASTATIN 10 MG TABLET 1 TABLET IN THE EVENING ORALLY ONCE A DAY TAKING PAROXETINE HCL ER 37.5 MG TABLET EXTENDED RELEASE 24 HOUR 1 TABLET IN THE MORNING ORALLY ONCE A DAY TAKING MOMETASONE-AMMONIUM LACTATE 0.1 & 12 % KIT EXTERNALLY PRN TAKING OTEZLA 30 MG TABLET 1 TABLET ORALLY TWICE A DAY TAKING GABAPENTIN 300 MG CAPSULE 1 CAPSULE ORALLY BEFORE BEDTIME FOR PAIN TAKING OMEPRAZOLE 40 MG CAPSULE DELAYED RELEASE 1 CAPSULE ORALLY ONCE A DAY TAKING NORCO 10-325 MG TABLET 1 TABLET NEEDED ORALLY EVERY 6 HRS PRN PAIN MDD=3 TAKING SPIRIVA RESPIMAT 1.25 MCG/ACT AEROSOL SOLUTION 2 PUFFS INHALATION ONCE A DAY NOT-TAKING CEFTIN 500 MG TABLET 1 TABLET ORALLY EVERY 12 HRS NOT-TAKING NEXIUM 40 MG CAPSULE DELAYED RELEASE 1 CAPSULE ORALLY ONCE A DAY NOT-TAKING PREDNISONE 10 MG TABLET 1 TABLET ORALLY TAKE 5 TABS X 2 DAYS, 4 TAB X 2 DAY, 3 TAB X 2 DAY, 2 TABX 2 DAY, 1 TAB X 2 DAY NOT-TAKING FIORICET 50-300-40 MG CAPSULE 1 CAPSULE NEEDED ORALLY EVERY 6 HRS PRN PAIN MDD=4 NOT-TAKING SOMA 350 MG TABLET 1 TABLET NEEDED ORALLY NIGHTLY NOT-TAKING MOTRIN PM 200-38 MG TABLET 2 TABLETS AT BEDTIME NEEDED ORALLY ONCE A DAY NOT-TAKING LYRICA 75 MG CAPSULE 1 CAPSULE ORALLY TWICE A DAY NOT-TAKING FLEXERIL 10 MG TABLET 1 TABLET ORALLY THREE TIMES A DAY NOT-TAKING DICLOFENAC SODIUM 75 MG TABLET DELAYED RELEASE 1 TABLET WITH FOOD OR MILK ORALLY TWICE A DAY MEDICATION LIST REVIEWED AND RECONCILED WITH THE PATIENT PAST MEDICAL HISTORY HTN DEPRESSION / ANXIETY BRONCHIATUS HYPERLIPEDEMIA COSTOCHONDRIATUS BULGING DISC L4-5 AND L5-S1 ARTHRITIS BONE SPUR LEFT HIP SLEEP APNEA DIABETES NECK PAIN CA--CERVICLE PSORIOSIS DDD BONE SPURS IN NECK LUNG CANCER ALLERGIES CODEINE PHOSPHATE (FOR ALLERGIES USE ONLY): N/V/D - SIDE EFFECTS CRAB MEAT: RASH ON FACE - ALLERGY SURGICAL HISTORY HYSTERETOMY 2004 I+D OF INFECTED AREA UNDER LEFT BREAST 2009 PLATES AND SCREWS RIGHT WRIST 2011 CYSTS REMOVED ON NECK AND INNER LEFT THIGH REMOVED LEFT UPPER LOBE OF LUNG 07/04/18 FAMILY HISTORY FATHER: 59 YRS, DIAGNOSED WITH CANCER MOTHER: ALIVE 69 YRS, HYPERTENSION, HEART DISEASE, STROKE, DIABETES SIBLINGS: ALIVE SON(S): ALIVE DAUGHTER(S): ALIVE 2 SON(S) , 1 DAUGHTER(S) . FATHER--LUNG CA\N4 BROTHERS HAVE COPD, 1BROTHER--SEIZURES\NYOUNGEST SON--ADHD. SOCIAL HISTORY GENERAL: TOBACCO USE ARE YOU A:FORMER SMOKER PAIN CLINIC PFS, CLERGY, PUBLIC HEALTH REFERRALS PFS REFERRAL NEEDED?NO CLERGY REFERRAL NEEDED?NO PUBLIC HEALTH REFERRAL NEEDED?NO WAS THE PROVIDER NOTIFIED OF ANY PERTINENT INFO?NO HAS THE PATIENT BEEN EDUCATED REGARDING HIS/HER PLAN OF CARE?YES HAS THE PATIENT BEEN EDUCATED REGARDING PAIN, THE RISK FOR PAIN, THE IMPORTANCE OF EFFECTIVE PAIN MANAGEMENT, AND THE PAIN ASSESSMENT PROCESS?YES LATEX QUESTIONNAIRE LATEX ALLERGY : HAVE YOU EVER DEVELOPED ANY TYPE OF REACTION AFTER HANDLING LATEX PRODUCTS SUCH RUBBER GLOVES, CONDOMS, DIAPHRAGMS, BALLOONS, SOCKS, OR UNDERWEAR?NO LATEX ALLERGY : HAVE YOU EVER DEVELOPED ANY TYPE OF REACTION DURING OR AFTER DENTAL APPOINTMENT, VAGINAL/RECTAL EXAMINATION, SURGICAL PROCEDURE, OR ANY OTHER EXPOSURE?NO LATEX RISK : HAVE YOU EVER HAD ANY DIFFICULTY BREATHING OR HIVES AFTER EATING OR HANDLING ANY FRUITS, OR VEGETABLES; SUCH KIWI, BANANAS, STONE FRUITS, OR CHESTNUTSNO LATEX RISK : DO YOU HAVE A PREVIOUS PERSONAL HISTORY OF MORE THAN NINE SURGERIES, SPINA BIFIDA, OR REPEATED CATHERTIZATIONS? NO LATEX RISK : ARE YOU FREQUENTLY EXPOSED TO LATEX PRODUCTS IN YOUR OCCUPATION?NO DATE ASKED : 05/13/2018 ADVANCE DIRECTIVE ADVANCE DIRECTIVE DISCUSSED WITH PATIENT:YES HCP - KEYSHA ZEE () & MARYSOL PETERCallie (MOTHER) GNOSTICISM [id number] [place] [address] LANGUAGE LANGUAGES SPOKEN:TURKISH ALCOHOL SCREENING DID YOU HAVE A DRINK CONTAINING ALCOHOL IN THE PAST YEAR?NO POINTS0 INTERPRETATIONNEGATIVE RECREATIONAL DRUG USE DRUG USE?NO LEARNING BARRIERS / SPECIAL NEEDS BARRIERS TO LEARNING?NO HEARING IMPAIRED?NO VISION IMPAIRED?YES :CORRECTIVE LENSES COGNITIVELY IMPAIRED?NO READINESS TO LEARN?YES LEARNING PREFERENCES?NO LEARNING CAPABILITIES PRESENT?YES EMOTIONAL BARRIERS?NO SPECIAL DEVICES?YES :CANE SIEVE MAKER NEEDED?NO REVIEWED WITH PT 05/13/18 1057 BVREVIEWED WITH PATIENT 07/21/18 1045 JS. HOSPITALIZATION/MAJOR DIAGNOSTIC PROCEDURE HOSPITALIZATIONS RELATED TO SURGERY AND CHILDBIRTH REVIEW OF SYSTEMS REVIEWED BY: PROVIDER: OSWALDO BLANDON . CONSTITUTIONAL: ANY CHANGE IN YOUR MEDICAL CONDITION? NO . CHILLS NO . FEVER NO . INFECTION: DO YOU HAVE NEW INFECTIONS? NO . DO YOU HAVE HISTORY OF MRSA? NO . MUSCULOSKELETAL: ANY NEW PATTERNS OF PAIN OR NUMBNESS? NO . GASTROENTEROLOGY: ANY NEW CHANGE IN BOWEL CONTROL? NO . GENITOURINARY: ANY NEW CHANGE IN BLADDER CONTROL? NO . IS THERE A CHANCE YOU COULD BE ? NO . HEMATOLOGY/LYMPH: DO YOU TAKE ANY BLOOD THINNERS? (FOR EXAMPLE- COUMADIN, PLAVIX, AGGRENOX, PLATEL, PRADAXA, OR XARELTO) NO . WHEN WAS YOUR LAST DOSE? DATE: TIME: . NEUROLOGY: HAVE YOU FALLEN IN THE PAST 12 MONTHS? YES, STATES PRIOR TO LAST APPOINTMENT, DISCUSSED AT PREVIOUS APPOINTMENT . ANY NEW EXTREMITY NUMBNESS OR WEAKNESS? NO . CARDIOLOGY: DO YOU HAVE A PACEMAKER OR DEFIBRILLATOR? NO . RESPIRATORY: HAVE YOU BEEN SICK IN THE PAST WEEK? NO . FEVER NO . FLU LIKE SYMPTOMS? NO . COUGH NO . INTEGUMENTARY: DO YOU HAVE ANY RASHES OR OPEN SORES? YES, TO LEFT BACK FROM SURGERY ON JULY 04 - STITCHES REMOVED TODAY . ALLERGIC/IMMUNO: ARE YOU ALLERGIC TO IV DYE? NO . ANY NEW ALLERGIES? NO . PSYCHIATRIC: DO YOU HAVE THOUGHTS OF HURTING YOURSELF OR SOMEONE ELSE? NO . ARE YOU ABUSED, NEGLECTED, OR IN AN UNSAFE ENVIRONMENT? NO . ENDOCRINOLOGY: ARE YOU DIABETIC? YES . OTHER: DO YOU NEED ANY PRESCRIPTIONS? YES . IF YES, PLEASE LIST: ____HYDROCODONE . ANY NEW PROBLEMS WITH YOUR MEDICATIONS? NO . WHEN DID YOU LAST EAT? ____ . WHEN DID YOU LAST DRINK? ____ . WHAT DID YOU LAST DRINK? ____ . NAME OF PERSON DRIVING YOU HOME? ____ . DO YOU HAVE ANY OTHER QUESTIONS OR CONCERNS NO . VITAL SIGNS WT 225 LBS, HT 64 IN, BMI 38.62 INDEX, BP 123/70 MM HG, HR 116 /MIN, RR 18 /MIN, TEMP 97.8 F, OXYGEN SAT % 95%, SAFE IN ENV? (Y/N) YES, NA INITIALS SC 10:32, REVIEWED BY: LILA. EXAMINATION GENERAL EXAMINATION: GENERAL APPEARANCE:AWAKE,ALERT ,PLEAASANT . PSYCHAFFECT NORMAL . LUNGS:LUNG TAFOYA ARE CLEAR TO AUSCULTATION BILATERALLY. GOOD MOVEMENT OF AIR . HEART:S1, S2 IN A REGULAR RATE AND RHYTHM. NO SIGNIFICANT MURMURS, RUBS OR GALLOPS NOTED . ASSESSMENTS MYALGIA, OTHER SITE - M79.18 (PRIMARY) TREATMENT MYALGIA, OTHER SITE CONTINUE NORCO TABLET, 10-325 MG, 1 TABLET NEEDED, ORALLY, EVERY 6 HRS PRN PAIN MDD=3 NOTES: ISTOP REGISTRY REVIEWED AND DEMONSTRATES COMPLLIANCE. BRINGS IN MEDICATIONS WHICH IS APPROPRIATE FOR WHAT WAS DISPENSED. RECENT URINE TOXICOLOGY REVIEWED. NO UNAUTHORIZED MEDICATIONS. NO ILLICIT SUBSTANCES AND PRESCRIBED MEDICATIONS WERE PRESENT. , RISKS AND BENEFITS OF NARCOTIC/OPIOD MEDICATIONS WERE REVIEWED WITH PATIENT - THIS INCLUDES BUT IS NOT LIMITED TO RISK OF DEPENDANCE/DEVELOPMENT OF ADDICTION, MOOD DISTURBANCE AND DEPRESSION, OSTEOPOROSIS, HORMONAL AND LABIDAL CHANGES, RESPIRATORY DEPRESSION AND . PATIENT IS ADVISED NOT TO DRIVE OR DRINK ALCOHOL WHILE ON THESE MEDICATIONS. PROCEDURE CODES FA211 ESTABILISHED PATIENT [facility] CHARGE DISPOSITION & COMMUNICATION FOLLOW UP 2 MONTHS (REASON: MED MGMNT) ELECTRONICALLY SIGNED BY BARBER FLORES ON 08/04/2018 AT 03:56 PM EDT DISCLAIMER : THIS IS A VISIT SUMMARY EXTRACTED FROM THE [employer] CHART. IT IS NOT A COPY OF THE [employer] PROGRESS NOTE. REKHA
== END ==
LOC: M PAIN 11:30
PROVIDERS: ATTEND Nurse Practitioner Family
DX: M79.18 Myalgia, other site (principal); I10 Essential (primary) hypertension; Z86.59 Personal history of other mental and behavioral disorders; E78.5 Hyperlipidemia, unspecified; M19.90 Unspecified osteoarthritis, unspecified site; G47.30 Sleep apnea, unspecified; E11.9 Type 2 diabetes mellitus without complications; Z87.891 Personal history of nicotine dependence; Z88.5 Allergy status to narcotic agent; Z91.013 Allergy to seafood; Z79.899 Other long term (current) drug therapy
CPT/HCPCS: 71046; G0463

== ENCOUNTER → 2018-08-14 | Outpatient (CLI) | payer OTHER ==
--- NOTE | 2018-08-14 09:14 | REP ---
Clinical: Follow up prior surgery. Technique: PA and lateral. Comparison: 07/21/2018. Findings: Relatively normal appropriate postsurgical changes involving the left hemithorax are suggested. No focal consolidation. No obvious effusion. No pneumothorax. Visualized mediastinum and cardiac silhouette are within normal limits. Postsurgical changes at the left hilum again noted. Skeletal structures are stable and subtle lateral left rib fracture cannot be excluded. Impression: 1. Relatively appropriate postsurgical changes involving the left hemithorax. 2. A very subtle nondisplaced lateral left sixth rib fracture cannot be excluded. 3. No significant acute process appreciated. Electronically Signed by Anam Woodall MD 08/14/2018 09:06 A
== END ==
LOC: M SMT 08:36
PROVIDERS: ATTEND Thoracic Surgery (Cardiothoracic Vascular Surgery)
DX: Z48.3 Aftercare following surgery for neoplasm (principal)

== ENCOUNTER → 2018-09-11 | Outpatient (CLI) | payer OTHER ==
--- NOTE | 2018-09-13 00:37 | ECWPNPC ---
PATIENT NAME: KEMAL ZEE : 1975 GENDER: FEMALE VISIT DATE: 09/11/2018 DISCHARGE DATE: 09/11/1852 VISIT LOCKED DATE TIME: PHYSICIAN: SUGAR MURCIA RESOURCE: SUGAR MURCIA REASON FOR APPOINTMENT 1. MED MGMNT HISTORY OF PRESENT ILLNESS HISTORY OF PRESENT ILLNESS: 43 YEAR OLD FEMALE IN FOR CHRONIC PAIN FOLLOW UP. SHE RATES HER PAIN AT AN 8/10 CURRENTLY AND HAS REQUESTED AN INCREASE IN HER NORCO. SHE DESCRIBES HER PAIN ACHING, SHOOTING, AND TINGLING. PAIN THE PATIENT DESCRIBES THE PAIN... FALL RISK SCREENING: SCREENING :NO FALLS REPORTED IN THE LAST YEAR CURRENT MEDICATIONS TAKING TRAZODONE HCL 50 MG TABLET 1 TABLET AT BEDTIME NEEDED ORALLY ONCE A DAY TAKING VENTOLIN HFA 90 MCG/ACT AEROSOL SOLUTION 2 PUFFS NEEDED INHALATION EVERY 4 HRS TAKING GLUCOTROL XL 5 MG TABLET EXTENDED RELEASE 24 HOUR 1 TABLET ORALLY ONCE A DAY TAKING LOSARTAN POTASSIUM 25 MG TABLET 1 TABLET ORALLY ONCE A DAY TAKING ZYRTEC 10 MG TABLET 1 TABLET ORALLY ONCE A DAY TAKING SIMVASTATIN 10 MG TABLET 1 TABLET IN THE EVENING ORALLY ONCE A DAY TAKING PAROXETINE HCL ER 37.5 MG TABLET EXTENDED RELEASE 24 HOUR 1 TABLET IN THE MORNING ORALLY ONCE A DAY TAKING MOMETASONE-AMMONIUM LACTATE 0.1 & 12 % KIT EXTERNALLY PRN TAKING OTEZLA 30 MG TABLET 1 TABLET ORALLY TWICE A DAY TAKING GABAPENTIN 300 MG CAPSULE 1 CAPSULE ORALLY BEFORE BEDTIME FOR PAIN TAKING OMEPRAZOLE 40 MG CAPSULE DELAYED RELEASE 1 CAPSULE ORALLY ONCE A DAY TAKING SPIRIVA RESPIMAT 1.25 MCG/ACT AEROSOL SOLUTION 2 PUFFS INHALATION ONCE A DAY TAKING NORCO 10-325 MG TABLET 1 TABLET NEEDED ORALLY EVERY 6 HRS PRN PAIN MDD=3 NOT-TAKING CEFTIN 500 MG TABLET 1 TABLET ORALLY EVERY 12 HRS NOT-TAKING NEXIUM 40 MG CAPSULE DELAYED RELEASE 1 CAPSULE ORALLY ONCE A DAY NOT-TAKING PREDNISONE 10 MG TABLET 1 TABLET ORALLY TAKE 5 TABS X 2 DAYS, 4 TAB X 2 DAY, 3 TAB X 2 DAY, 2 TABX 2 DAY, 1 TAB X 2 DAY NOT-TAKING FIORICET 50-300-40 MG CAPSULE 1 CAPSULE NEEDED ORALLY EVERY 6 HRS PRN PAIN MDD=4 NOT-TAKING SOMA 350 MG TABLET 1 TABLET NEEDED ORALLY NIGHTLY NOT-TAKING MOTRIN PM 200-38 MG TABLET 2 TABLETS AT BEDTIME NEEDED ORALLY ONCE A DAY NOT-TAKING LYRICA 75 MG CAPSULE 1 CAPSULE ORALLY TWICE A DAY NOT-TAKING FLEXERIL 10 MG TABLET 1 TABLET ORALLY THREE TIMES A DAY NOT-TAKING DICLOFENAC SODIUM 75 MG TABLET DELAYED RELEASE 1 TABLET WITH FOOD OR MILK ORALLY TWICE A DAY MEDICATION LIST REVIEWED AND RECONCILED WITH THE PATIENT PAST MEDICAL HISTORY HTN DEPRESSION / ANXIETY BRONCHIATUS HYPERLIPEDEMIA COSTOCHONDRIATUS BULGING DISC L4-5 AND L5-S1 ARTHRITIS BONE SPUR LEFT HIP SLEEP APNEA DIABETES NECK PAIN CA--CERVICLE PSORIOSIS DDD BONE SPURS IN NECK LUNG CANCER ALLERGIES CODEINE PHOSPHATE (FOR ALLERGIES USE ONLY): N/V/D - SIDE EFFECTS CRAB MEAT: RASH ON FACE - ALLERGY SURGICAL HISTORY HYSTERETOMY 2004 I+D OF INFECTED AREA UNDER LEFT BREAST 2009 PLATES AND SCREWS RIGHT WRIST 2011 CYSTS REMOVED ON NECK AND INNER LEFT THIGH REMOVED LEFT UPPER LOBE OF LUNG 07/04/18 FAMILY HISTORY FATHER: 59 YRS, DIAGNOSED WITH CANCER MOTHER: ALIVE 69 YRS, STROKE, DIABETES, HYPERTENSION, HEART DISEASE SIBLINGS: ALIVE SON(S): ALIVE DAUGHTER(S): ALIVE 2 SON(S) , 1 DAUGHTER(S) . FATHER--LUNG CA\N4 BROTHERS HAVE COPD, 1BROTHER--SEIZURES\NYOUNGEST SON--ADHD. SOCIAL HISTORY GENERAL: TOBACCO USE ARE YOU A:FORMER SMOKER PAIN CLINIC PFS, CLERGY, PUBLIC HEALTH REFERRALS PFS REFERRAL NEEDED?NO CLERGY REFERRAL NEEDED?NO PUBLIC HEALTH REFERRAL NEEDED?NO WAS THE PROVIDER NOTIFIED OF ANY PERTINENT INFO?NO HAS THE PATIENT BEEN EDUCATED REGARDING HIS/HER PLAN OF CARE?YES HAS THE PATIENT BEEN EDUCATED REGARDING PAIN, THE RISK FOR PAIN, THE IMPORTANCE OF EFFECTIVE PAIN MANAGEMENT, AND THE PAIN ASSESSMENT PROCESS?YES LATEX QUESTIONNAIRE LATEX ALLERGY : HAVE YOU EVER DEVELOPED ANY TYPE OF REACTION AFTER HANDLING LATEX PRODUCTS SUCH RUBBER GLOVES, CONDOMS, DIAPHRAGMS, BALLOONS, SOCKS, OR UNDERWEAR?NO LATEX ALLERGY : HAVE YOU EVER DEVELOPED ANY TYPE OF REACTION DURING OR AFTER DENTAL APPOINTMENT, VAGINAL/RECTAL EXAMINATION, SURGICAL PROCEDURE, OR ANY OTHER EXPOSURE?NO LATEX RISK : HAVE YOU EVER HAD ANY DIFFICULTY BREATHING OR HIVES AFTER EATING OR HANDLING ANY FRUITS, OR VEGETABLES; SUCH KIWI, BANANAS, STONE FRUITS, OR CHESTNUTSNO LATEX RISK : DO YOU HAVE A PREVIOUS PERSONAL HISTORY OF MORE THAN NINE SURGERIES, SPINA BIFIDA, OR REPEATED CATHERIZATIONS? NO LATEX RISK : ARE YOU FREQUENTLY EXPOSED TO LATEX PRODUCTS IN YOUR OCCUPATION?NO DATE ASKED : 05/13/2018 ADVANCE DIRECTIVE ADVANCE DIRECTIVE DISCUSSED WITH PATIENT:YES HCP - KEYSHA ZEE () & MARYSOL CORBIN (MOTHER) ZOROASTRIANISM [id number] [place] [address] LANGUAGE LANGUAGES SPOKEN:[place] ALCOHOL SCREENING DID YOU HAVE A DRINK CONTAINING ALCOHOL IN THE PAST YEAR?NO POINTS0 INTERPRETATIONNEGATIVE RECREATIONAL DRUG USE DRUG USE?NO LEARNING BARRIERS / SPECIAL NEEDS BARRIERS TO LEARNING?NO HEARING IMPAIRED?NO VISION IMPAIRED?YES :CORRECTIVE LENSES COGNITIVELY IMPAIRED?NO READINESS TO LEARN?YES LEARNING PREFERENCES?NO LEARNING CAPABILITIES PRESENT?YES EMOTIONAL BARRIERS?NO SPECIAL DEVICES?YES :CANE PLASTIC WORKER NEEDED?NO REVIEWED WITH PT 05/13/18 1057 BVREVIEWED WITH PATIENT 07/21/18 1045 JS//REVIEWED WITH PATIENT NLJ. HOSPITALIZATION/MAJOR DIAGNOSTIC PROCEDURE HOSPITALIZATIONS RELATED TO SURGERY AND CHILDBIRTH REVIEW OF SYSTEMS REVIEWED BY: PROVIDER: MICHA BLANDON-C . CONSTITUTIONAL: ANY CHANGE IN YOUR MEDICAL CONDITION? NO . CHILLS NO . FEVER NO . INFECTION: DO YOU HAVE NEW INFECTIONS? NO . DO YOU HAVE HISTORY OF MRSA? NO . MUSCULOSKELETAL: ANY NEW PATTERNS OF PAIN OR NUMBNESS? YES- MID CHEST STABBING PAIN, TINGLING . GASTROENTEROLOGY: ANY NEW CHANGE IN BOWEL CONTROL? NO . GENITOURINARY: ANY NEW CHANGE IN BLADDER CONTROL? NO . IS THERE A CHANCE YOU COULD BE ? NO . HEMATOLOGY/LYMPH: DO YOU TAKE ANY BLOOD THINNERS? (FOR EXAMPLE- COUMADIN, PLAVIX, AGGRENOX, PLATEL, PRADAXA, OR XARELTO) NO . WHEN WAS YOUR LAST DOSE? DATE: TIME: . NEUROLOGY: HAVE YOU FALLEN IN THE PAST 12 MONTHS? NO . ANY NEW EXTREMITY NUMBNESS OR WEAKNESS? NO . CARDIOLOGY: DO YOU HAVE A PACEMAKER OR DEFIBRILLATOR? NO . RESPIRATORY: HAVE YOU BEEN SICK IN THE PAST WEEK? NO . FEVER NO . FLU LIKE SYMPTOMS? NO . COUGH NO . INTEGUMENTARY: DO YOU HAVE ANY RASHES OR OPEN SORES? YES- PSORIASIS- BILATERAL HANDS, ARMS, LEGS . ALLERGIC/IMMUNO: ARE YOU ALLERGIC TO IV DYE? NO . ANY NEW ALLERGIES? NO . PSYCHIATRIC: DO YOU HAVE THOUGHTS OF HURTING YOURSELF OR SOMEONE ELSE? NO . ARE YOU ABUSED, NEGLECTED, OR IN AN UNSAFE ENVIRONMENT? NO . ENDOCRINOLOGY: ARE YOU DIABETIC? YES . OTHER: DO YOU NEED ANY PRESCRIPTIONS? YES- NEEDS NORCO REFILLED- AND WOULD LIKE # OF TABS PER DAY INCREASED . IF YES, PLEASE LIST: ____ . ANY NEW PROBLEMS WITH YOUR MEDICATIONS? NO . WHEN DID YOU LAST EAT? ____ . WHEN DID YOU LAST DRINK? ____ . WHAT DID YOU LAST DRINK? ____ . NAME OF PERSON DRIVING YOU HOME? ____ . DO YOU HAVE ANY OTHER QUESTIONS OR CONCERNS YES- WOULD LIKE NORCO INCEASED- STATES SHE IS NOT SLEEPING, STATES PAIN ON LEFT SIDE WAKING HER UP AT NIGHT, STATES LEFT SHOULDER PAIN HAS RETURNED . VITAL SIGNS WT 218.8 LBS, HT 64 IN, BMI 37.55 INDEX, BP 143/73 MM HG, HR 90 /MIN, RR 18 /MIN, TEMP 96.6 F, OXYGEN SAT % 95%, SAFE IN ENV? (Y/N) YES, NA INITIALS AW 0900, REVIEWED BY: KORY. EXAMINATION GENERAL EXAMINATION: GENERALNO ACUTE DISTRESS, WELL NOURISHED AND HYDRATED. PSYCHAPPROPRIATE MOOD AND AFFECT . LUNGS:CLEAR TO AUSCULTATION, NO WHEEZES, RHONCHI, RALES. HEART:NO MURMURS, REGULAR RATE AND RHYTHM. ASSESSMENTS SPONDYLOSIS WITHOUT MYELOPATHY OR RADICULOPATHY, CERVICAL REGION - M47.812 (PRIMARY) MYALGIA, OTHER SITE - M79.18 MYALGIA - M79.1 TREATMENT SPONDYLOSIS WITHOUT MYELOPATHY OR RADICULOPATHY, CERVICAL REGION CLINICAL NOTES: 43 YEAR OLD FEMALE IN FOR CHRONIC PAIN FOLLOW UP. GIVEN PRESENTING SYMPTOMS AND RESULTS OF PHYSICAL EXAMINATION RECOMMENDED ADDING LYRICA TO CURRENT MEDICATION REGIMEN WITH FOLLOW UP IN 1 MONTH TO DETERMINE EFFICACY OF TREATMENT. PATIENT HAS EXPRESSED UNDERSTANDING OF AND WAS IN AGREEMENT WITH TX PLAN. GIVEN TIME TO ASK QUESTIONS AND EXPRESS CONCERNS. , ISTOP REGISTRY REVIEWED AND DEMONSTRATES COMPLLIANCE. (REF #[id number] ) BRINGS IN MEDICATIONS WHICH IS APPROPRIATE FOR WHAT WAS DISPENSED. RECENT URINE TOXICOLOGY REVIEWED. NO UNAUTHORIZED MEDICATIONS. NO ILLICIT SUBSTANCES AND PRESCRIBED MEDICATIONS WERE PRESENT. MYALGIA, OTHER SITE REFILL NORCO TABLET, 10-325 MG, 1 TABLET NEEDED, ORALLY, EVERY 6 HRS PRN PAIN MDD=3 MYALGIA REFILL LYRICA CAPSULE, 75 MG, 1 CAPSULE, ORALLY, TWICE A DAY PREVENTIVE MEDICINE PAIN CLINIC TEACHING: MEDICATIONS LYRCIA DRUG INFORMATION PRINTED, GIVEN TO PATEINT AND REVIEWED 09/11/18 KORY. PROCEDURE CODES FA211 ESTABILISHED PATIENT [facility] CHARGE DISPOSITION & COMMUNICATION FOLLOW UP 4 WEEKS (REASON: MEDICATION ADJUSTMENT ) ELECTRONICALLY SIGNED BY BARBER RODRIGUEZ ON 09/12/2018 AT 09:08 AM EDT DISCLAIMER : THIS IS A VISIT SUMMARY EXTRACTED FROM THE [employer] CHART. IT IS NOT A COPY OF THE [employer] PROGRESS NOTE. BALTAZARD
== END ==
LOC: M PAIN 09:30
PROVIDERS: ATTEND Family Medicine
DX: M47.812 Spondylosis without myelopathy or radiculopathy, cervical region (principal); M79.18 Myalgia, other site; I10 Essential (primary) hypertension; F32.9 Major depressive disorder, single episode, unspecified; F41.9 Anxiety disorder, unspecified; E78.5 Hyperlipidemia, unspecified; M51.26 Other intervertebral disc displacement, lumbar region; G47.30 Sleep apnea, unspecified; E11.9 Type 2 diabetes mellitus without complications; L40.9 Psoriasis, unspecified; M94.0 Chondrocostal junction syndrome [Tietze]; M46.02 Spinal enthesopathy, cervical region; M76.892 Other specified enthesopathies of left lower limb, excluding foot; Z87.891 Personal history of nicotine dependence; Z85.41 Personal history of malignant neoplasm of cervix uteri; Z90.710 Acquired absence of both cervix and uterus; Z85.118 Personal history of other malignant neoplasm of bronchus and lung; Z90.2 Acquired absence of lung [part of]; Z79.891 Long term (current) use of opiate analgesic; Z79.899 Other long term (current) drug therapy; Z88.5 Allergy status to narcotic agent; Z91.013 Allergy to seafood

== ENCOUNTER → 2018-11-10 | Outpatient (CLI) | payer OTHER ==
[~2018-11-10] MED LIST changes: -ALL10TAB28 PO; +ALL10TAB29 PO
--- NOTE | 2018-11-12 00:38 | ECWPNPC ---
PATIENT NAME: KEMAL ZEE : 1975 GENDER: FEMALE VISIT DATE: 11/10/2018 DISCHARGE DATE: 11/10/18 1017 VISIT LOCKED DATE TIME: PHYSICIAN: SUGAR MURCIA RESOURCE: SUGAR MURCIA REASON FOR APPOINTMENT 1. MED MGMNT HISTORY OF PRESENT ILLNESS HISTORY OF PRESENT ILLNESS: PAIN THE PATIENT DESCRIBES THE PAIN... 43-YEAR-OLD FEMALE IN FOR CHRONIC PAIN FOLLOW-UP. SHE STATES SHE DID NOT START THE LYRICA SHE WAS WORRIED ABOUT THE POTENTIAL SIDE EFFECTS OF THE MEDICATION. SHE RATES HER PAIN CURRENTLY AT AN 8 OUT OF 10 AND DESCRIBES IT ACHING. FALL RISK SCREENING: SCREENING :NO FALLS REPORTED IN THE LAST YEAR CURRENT MEDICATIONS TAKING TRAZODONE HCL 100 MG TABLET 1 TABLET AT BEDTIME NEEDED ORALLY ONCE A DAY TAKING VENTOLIN HFA 90 MCG/ACT AEROSOL SOLUTION 2 PUFFS NEEDED INHALATION EVERY 4 HRS TAKING GLUCOTROL XL 5 MG TABLET EXTENDED RELEASE 24 HOUR 1 TABLET ORALLY ONCE A DAY TAKING LOSARTAN POTASSIUM 25 MG TABLET 1 TABLET ORALLY ONCE A DAY TAKING ZYRTEC 10 MG TABLET 1 TABLET ORALLY ONCE A DAY TAKING SIMVASTATIN 10 MG TABLET 1 TABLET IN THE EVENING ORALLY ONCE A DAY TAKING PAROXETINE HCL ER 37.5 MG TABLET EXTENDED RELEASE 24 HOUR 1 TABLET IN THE MORNING ORALLY ONCE A DAY TAKING MOMETASONE-AMMONIUM LACTATE 0.1 & 12 % KIT EXTERNALLY PRN TAKING OTEZLA 30 MG TABLET 1 TABLET ORALLY TWICE A DAY TAKING OMEPRAZOLE 40 MG CAPSULE DELAYED RELEASE 1 CAPSULE ORALLY ONCE A DAY TAKING SPIRIVA RESPIMAT 1.25 MCG/ACT AEROSOL SOLUTION 2 PUFFS INHALATION ONCE A DAY TAKING NORCO 10-325 MG TABLET 1 TABLET NEEDED ORALLY EVERY 6 HRS PRN PAIN MDD=3 NOT-TAKING GABAPENTIN 300 MG CAPSULE 1 CAPSULE ORALLY BEFORE BEDTIME FOR PAIN NOT-TAKING CEFTIN 500 MG TABLET 1 TABLET ORALLY EVERY 12 HRS NOT-TAKING NEXIUM 40 MG CAPSULE DELAYED RELEASE 1 CAPSULE ORALLY ONCE A DAY NOT-TAKING PREDNISONE 10 MG TABLET 1 TABLET ORALLY TAKE 5 TABS X 2 DAYS, 4 TAB X 2 DAY, 3 TAB X 2 DAY, 2 TABX 2 DAY, 1 TAB X 2 DAY NOT-TAKING FIORICET 50-300-40 MG CAPSULE 1 CAPSULE NEEDED ORALLY EVERY 6 HRS PRN PAIN MDD=4 NOT-TAKING SOMA 350 MG TABLET 1 TABLET NEEDED ORALLY NIGHTLY NOT-TAKING MOTRIN PM 200-38 MG TABLET 2 TABLETS AT BEDTIME NEEDED ORALLY ONCE A DAY NOT-TAKING FLEXERIL 10 MG TABLET 1 TABLET ORALLY THREE TIMES A DAY NOT-TAKING DICLOFENAC SODIUM 75 MG TABLET DELAYED RELEASE 1 TABLET WITH FOOD OR MILK ORALLY TWICE A DAY DISCONTINUED LYRICA 75 MG CAPSULE 1 CAPSULE ORALLY TWICE A DAY MEDICATION LIST REVIEWED AND RECONCILED WITH THE PATIENT PAST MEDICAL HISTORY HTN DEPRESSION / ANXIETY BRONCHIATUS HYPERLIPEDEMIA COSTOCHONDRIATUS BULGING DISC L4-5 AND L5-S1 ARTHRITIS BONE SPUR LEFT HIP SLEEP APNEA DIABETES NECK PAIN CA--CERVICLE PSORIOSIS DDD BONE SPURS IN NECK LUNG CANCER ALLERGIES CODEINE PHOSPHATE (FOR ALLERGIES USE ONLY): N/V/D - SIDE EFFECTS CRAB MEAT: RASH ON FACE - ALLERGY SURGICAL HISTORY HYSTERETOMY 2004 I+D OF INFECTED AREA UNDER LEFT BREAST 2009 PLATES AND SCREWS RIGHT WRIST 2011 CYSTS REMOVED ON NECK AND INNER LEFT THIGH REMOVED LEFT UPPER LOBE OF LUNG 07/04/18 FAMILY HISTORY FATHER: 59 YRS, DIAGNOSED WITH OTHER MALIGNANT NEOPLASM OF UNSPECIFIED SITE MOTHER: ALIVE 69 YRS, DIABETES, HYPERTENSION, UNSPECIFIED HEART DISEASE, UNSPECIFIED CEREBRAL ARTERY OCCLUSION WITH CEREBRAL INFARCTION SIBLINGS: ALIVE SON(S): ALIVE DAUGHTER(S): ALIVE 2 SON(S) , 1 DAUGHTER(S) . FATHER--LUNG CA\N4 BROTHERS HAVE COPD, 1BROTHER--SEIZURES\NYOUNGEST SON--ADHD. SOCIAL HISTORY GENERAL: TOBACCO USE ARE YOU A:FORMER SMOKER PAIN CLINIC PFS, CLERGY, PUBLIC HEALTH REFERRALS PFS REFERRAL NEEDED?NO CLERGY REFERRAL NEEDED?NO PUBLIC HEALTH REFERRAL NEEDED?NO WAS THE PROVIDER NOTIFIED OF ANY PERTINENT INFO?NO HAS THE PATIENT BEEN EDUCATED REGARDING HIS/HER PLAN OF CARE?YES HAS THE PATIENT BEEN EDUCATED REGARDING PAIN, THE RISK FOR PAIN, THE IMPORTANCE OF EFFECTIVE PAIN MANAGEMENT, AND THE PAIN ASSESSMENT PROCESS?YES LATEX QUESTIONNAIRE LATEX ALLERGY : HAVE YOU EVER DEVELOPED ANY TYPE OF REACTION AFTER HANDLING LATEX PRODUCTS SUCH RUBBER GLOVES, CONDOMS, DIAPHRAGMS, BALLOONS, SOCKS, OR UNDERWEAR?NO LATEX ALLERGY : HAVE YOU EVER DEVELOPED ANY TYPE OF REACTION DURING OR AFTER DENTAL APPOINTMENT, VAGINAL/RECTAL EXAMINATION, SURGICAL PROCEDURE, OR ANY OTHER EXPOSURE?NO DATE ASKED : 05/13/2018 LATEX RISK : HAVE YOU EVER HAD ANY DIFFICULTY BREATHING OR HIVES AFTER EATING OR HANDLING ANY FRUITS, OR VEGETABLES; SUCH KIWI, BANANAS, STONE FRUITS, OR CHESTNUTSNO LATEX RISK : DO YOU HAVE A PREVIOUS PERSONAL HISTORY OF MORE THAN NINE SURGERIES, SPINA BIFIDA, OR REPEATED CATHERIZATIONS? NO LATEX RISK : ARE YOU FREQUENTLY EXPOSED TO LATEX PRODUCTS IN YOUR OCCUPATION?NO ADVANCE DIRECTIVE ADVANCE DIRECTIVE DISCUSSED WITH PATIENT:YES HCP - KEYSHA ZEE () & MARYSOL CORBIN (MOTHER) [id number] [place] [address] LANGUAGE LANGUAGES SPOKEN:KENYAN ALCOHOL SCREENING DID YOU HAVE A DRINK CONTAINING ALCOHOL IN THE PAST YEAR?NO POINTS0 INTERPRETATIONNEGATIVE RECREATIONAL DRUG USE DRUG USE?NO LEARNING BARRIERS / SPECIAL NEEDS BARRIERS TO LEARNING?NO HEARING IMPAIRED?NO VISION IMPAIRED?YES COGNITIVELY IMPAIRED?NO :CORRECTIVE LENSES READINESS TO LEARN?YES LEARNING PREFERENCES?NO LEARNING CAPABILITIES PRESENT?YES EMOTIONAL BARRIERS?NO SPECIAL DEVICES?YES :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 HOSPITALIZATION/MAJOR DIAGNOSTIC PROCEDURE HOSPITALIZATIONS RELATED TO SURGERY AND CHILDBIRTH REVIEW OF SYSTEMS REVIEWED BY: PROVIDER: MICHA ZULETAC . CONSTITUTIONAL: ANY CHANGE IN YOUR MEDICAL CONDITION? NO . CHILLS NO . FEVER NO . INFECTION: DO YOU HAVE NEW INFECTIONS? NO . DO YOU HAVE HISTORY OF MRSA? NO . MUSCULOSKELETAL: ANY NEW PATTERNS OF PAIN OR NUMBNESS? NO . GASTROENTEROLOGY: ANY NEW CHANGE IN BOWEL CONTROL? NO . GENITOURINARY: ANY NEW CHANGE IN BLADDER CONTROL? NO . IS THERE A CHANCE YOU COULD BE ? NO . HEMATOLOGY/LYMPH: DO YOU TAKE ANY BLOOD THINNERS? (FOR EXAMPLE- COUMADIN, PLAVIX, AGGRENOX, PLATEL, PRADAXA, OR XARELTO) NO . WHEN WAS YOUR LAST DOSE? DATE: TIME: . NEUROLOGY: HAVE YOU FALLEN IN THE PAST 12 MONTHS? YES, PRIOR TO LAST VISIT . ANY NEW EXTREMITY NUMBNESS OR WEAKNESS? NO . CARDIOLOGY: DO YOU HAVE A PACEMAKER OR DEFIBRILLATOR? NO . RESPIRATORY: HAVE YOU BEEN SICK IN THE PAST WEEK? NO . FEVER NO . FLU LIKE SYMPTOMS? NO . COUGH NO . INTEGUMENTARY: DO YOU HAVE ANY RASHES OR OPEN SORES? YES, PSORIASIS . ALLERGIC/IMMUNO: ARE YOU ALLERGIC TO IV DYE? NO . ANY NEW ALLERGIES? NO . PSYCHIATRIC: DO YOU HAVE THOUGHTS OF HURTING YOURSELF OR SOMEONE ELSE? NO . ARE YOU ABUSED, NEGLECTED, OR IN AN UNSAFE ENVIRONMENT? NO . ENDOCRINOLOGY: ARE YOU DIABETIC? YES . OTHER: DO YOU NEED ANY PRESCRIPTIONS? YES, NORCO . IF YES, PLEASE LIST: ____ . ANY NEW PROBLEMS WITH YOUR MEDICATIONS? NO . WHEN DID YOU LAST EAT? ____ . WHEN DID YOU LAST DRINK? ____ . WHAT DID YOU LAST DRINK? ____ . NAME OF PERSON DRIVING YOU HOME? ____ . DO YOU HAVE ANY OTHER QUESTIONS OR CONCERNS NO . VITAL SIGNS WT 220.0 LBS, HT 64 IN, BMI 37.76 INDEX, BP 140/91 MM HG, HR 72 /MIN, RR 18 /MIN, TEMP 96.6 F, OXYGEN SAT % 96%, NA INITIALS SC 09:32, REVIEWED BY: EM. EXAMINATION GENERAL EXAMINATION: GENERALNO ACUTE DISTRESS, WELL NOURISHED AND HYDRATED. PSYCHAPPROPRIATE MOOD AND AFFECT . LUNGS:CLEAR TO AUSCULTATION BILATERALLY, NO WHEEZES, RHONCHI, RALES. HEART:NO MURMURS, REGULAR RATE AND RHYTHM. ASSESSMENTS SPONDYLOSIS WITHOUT MYELOPATHY OR RADICULOPATHY, CERVICAL REGION - M47.812 (PRIMARY) MYALGIA - M79.1 TREATMENT SPONDYLOSIS WITHOUT MYELOPATHY OR RADICULOPATHY, CERVICAL REGION START SKELAXIN TABLET, 800 MG, 1 TABLET, ORALLY, THREE TIMES A DAY, 30 DAY(S), 90 CLINICAL NOTES: 43-YEAR-OLD FEMALE IN FOR CHRONIC PAIN FOLLOW-UP. GIVEN PRESENTING SYMPTOMS AND RESULTS OF PHYSICAL EXAMINATION RECOMMENDED STARTING SKELAXIN WITH FOLLOW-UP IN ONE MONTH TO DETERMINE EFFICACY OF TREATMENT. PATIENT HAS EXPRESSED UNDERSTANDING OF AND WAS IN AGREEMENT WITH TREATMENT PLAN. GIVEN TIME ASK QUESTIONS AND EXPRESS CONCERNS., ISTOP REGISTRY REVIEWED AND DEMONSTRATES COMPLLIANCE. (REF # [id number] ) BRINGS IN MEDICATIONS WHICH IS APPROPRIATE FOR WHAT WAS DISPENSED. RECENT URINE TOXICOLOGY REVIEWED. NO UNAUTHORIZED MEDICATIONS. NO ILLICIT SUBSTANCES AND PRESCRIBED MEDICATIONS WERE PRESENT. OTHERS REFILL NORCO TABLET, 10-325 MG, 1 TABLET NEEDED, ORALLY, EVERY 6 HRS PRN PAIN MDD=3, 30 DAYS, 90 PROCEDURE CODES FA211 ESTABILISHED PATIENT [facility] CHARGE DISPOSITION & COMMUNICATION FOLLOW UP 4 WEEKS (REASON: MEDICATION CHANGE ) ELECTRONICALLY SIGNED BY BARBER RODRIGUEZ ON 11/11/2018 AT 09:19 AM EDT DISCLAIMER : THIS IS A VISIT SUMMARY EXTRACTED FROM THE [employer] CHART. IT IS NOT A COPY OF THE [employer] PROGRESS NOTE. REKHA
== END ==
LOC: M PAIN 09:15
PROVIDERS: ATTEND Family Medicine
DX: M47.812 Spondylosis without myelopathy or radiculopathy, cervical region (principal); M79.18 Myalgia, other site; I10 Essential (primary) hypertension; Z86.59 Personal history of other mental and behavioral disorders; E78.5 Hyperlipidemia, unspecified; G47.30 Sleep apnea, unspecified; E11.9 Type 2 diabetes mellitus without complications; Z87.891 Personal history of nicotine dependence; Z88.5 Allergy status to narcotic agent; Z91.013 Allergy to seafood; Z79.84 Long term (current) use of oral hypoglycemic drugs; Z79.899 Other long term (current) drug therapy

== ENCOUNTER → 2018-11-27 | Outpatient (CLI) | payer OTHER ==
[~2018-11-27] MED LIST changes: -OMEP40CA2 PO; +OMEP40CA97 PO
[2018-11-27 09:43] LABS: BASO % 0.6 % (0.0-1.0); EOS # 0.1 10^3/uL (0.0-0.5); EOS % 1.5 % (0.0-3.0); HEMATOCRIT 38.4 % (36.0-47.0); HEMOGLOBIN 11.6 g/dl (12.0-15.5); LYMPH # 1.8 10^3/uL (1.5-5.0); LYMPH % 27.5 % (24.0-44.0); MEAN CORPUSCULAR HGB CONC 30.2 g/dl (32.0-36.5); MEAN CORPUSCULAR VOLUME 85.9 fl (80.0-96.0); MONO # 0.5 10^3/uL (0.0-0.8); MONO % 7.9 % (0.0-5.0); NEUTROPHILS # 4.2 10^3/uL (1.5-8.5); NEUTROPHILS % 62.1 % (36.0-66.0); PLATELET COUNT, AUTOMATED 330 10^3/uL (150-450); RED BLOOD COUNT 4.47 10^6/uL (4.00-5.40); WHITE BLOOD COUNT 6.7 10^3/uL (4.0-10.0)
--- NOTE | 2018-11-27 09:58 | REP ---
At bedtime PA and lateral views: Comparison is 08/14/2018. There are surgical clips in the left hilus. The patient has a known left upper lobectomy. There is volume loss in the left hemithorax, unchanged. Left lung is otherwise clear. Right lung is clear. Cardiac size is normal. The xavier, mediastinum, skeletal structures are otherwise unremarkable. Impression: Left upper lobectomy. Otherwise, negative PA and lateral chest Electronically Signed by Con Siddiqui MD 11/27/2018 09:50 A
[2018-11-27 10:12] LABS: ALBUMIN 3.7 GM/DL (3.2-5.2); ALT/SGPT 23 U/L (12-78); BILIRUBIN,DIRECT 0.2 MG/DL (0.0-0.2); BILIRUBIN,TOTAL 0.5 MG/DL (0.2-1.0); BLOOD UREA NITROGEN 14 MG/DL (7-18); CARBON DIOXIDE LEVEL 28 MEQ/L (21-32); CHLORIDE LEVEL 107 MEQ/L (98-107); CREATININE FOR GFR 0.86 MG/DL (0.55-1.30); GLOMERULAR FILTRATION RATE > 60.0 (>58); GLUCOSE, FASTING 102 MG/DL (70-100); PHOSPHORUS LEVEL 4.7 MG/DL (2.5-4.9); POTASSIUM SERUM 4.2 MEQ/L (3.5-5.1); SODIUM LEVEL 142 MEQ/L (136-145); TOTAL PROTEIN 7.7 GM/DL (6.4-8.2)
== END ==
LOC: M LAB 08:38
PROVIDERS: ATTEND Nurse Practitioner Family
DX: L40.0 Psoriasis vulgaris (principal); E66.9 Obesity, unspecified

== ENCOUNTER → 2018-11-27 | Outpatient (CLI) | payer OTHER | LOC: M LAB 08:35 | PROVIDERS: ATTEND Family Medicine | DX: E66.9 Obesity, unspecified (principal) ==

== ENCOUNTER → 2019-04-16 | Outpatient (CLI) | payer OTHER ==
[~2019-04-16] MED LIST changes: -SIMV10TA2 PO; +SIMV10TA21 PO
--- NOTE | 2019-04-20 23:39 | ECWPNPC ---
PATIENT NAME: KEMAL ZEE : 1975 GENDER: FEMALE VISIT DATE: 04/16/2019 DISCHARGE DATE: 04/16/19 1110 VISIT LOCKED DATE TIME: PHYSICIAN: SUGAR MURCIA RESOURCE: SUGAR MURCIA REASON FOR APPOINTMENT 1. MEDS HISTORY OF PRESENT ILLNESS HISTORY OF PRESENT ILLNESS: PAIN THE PATIENT DESCRIBES THE PAIN... 43-YEAR-OLD FEMALE IN FOR CHRONIC PAIN FOLLOW-UP. PATIENT WAS STARTED ON SKELAXIN AT LAST CLINIC VISIT AND ADMITS TODAY THAT IT WAS UNHELPFUL. SHE RATES HER PAIN CURRENTLY AT AN 8 OUT OF 10 AND DESCRIBES IT ACHING, SHARP, AND STABBING. SHE FEELS HER HYDROCODONE IS WORKING WELL AND DENIES MED SIDE EFFECTS THIS TIME. FALL RISK SCREENING: SCREENING :NO FALLS REPORTED IN THE LAST YEAR CURRENT MEDICATIONS TAKING TRAZODONE HCL 100 MG TABLET 1 TABLET AT BEDTIME NEEDED ORALLY ONCE A DAY TAKING VENTOLIN HFA 90 MCG/ACT AEROSOL SOLUTION 2 PUFFS NEEDED INHALATION EVERY 4 HRS TAKING LOSARTAN POTASSIUM 25 MG TABLET 1 TABLET ORALLY ONCE A DAY TAKING ZYRTEC 10 MG TABLET 1 TABLET ORALLY ONCE A DAY TAKING SIMVASTATIN 10 MG TABLET 1 TABLET IN THE EVENING ORALLY ONCE A DAY TAKING PAROXETINE HCL ER 37.5 MG TABLET EXTENDED RELEASE 24 HOUR 1 TABLET IN THE MORNING ORALLY ONCE A DAY TAKING MOMETASONE-AMMONIUM LACTATE 0.1 & 12 % KIT EXTERNALLY PRN TAKING OMEPRAZOLE 40 MG CAPSULE DELAYED RELEASE 1 CAPSULE ORALLY ONCE A DAY TAKING SPIRIVA RESPIMAT 1.25 MCG/ACT AEROSOL SOLUTION 2 PUFFS INHALATION ONCE A DAY TAKING NORCO 10-325 MG TABLET 1 TABLET NEEDED ORALLY EVERY 6 HRS PRN PAIN MDD=3 TAKING SKYRIZI (150 MG DOSE) 75 MG/0.83ML PREFILLED SYRINGE KIT 1.66 ML SUBCUTANEOUS MONTHLY NOT-TAKING GLUCOTROL XL 5 MG TABLET EXTENDED RELEASE 24 HOUR 1 TABLET ORALLY ONCE A DAY NOT-TAKING OTEZLA 30 MG TABLET 1 TABLET ORALLY TWICE A DAY NOT-TAKING SKELAXIN 800 MG TABLET 1 TABLET ORALLY THREE TIMES A DAY NOT-TAKING GABAPENTIN 300 MG CAPSULE 1 CAPSULE ORALLY BEFORE BEDTIME FOR PAIN NOT-TAKING CEFTIN 500 MG TABLET 1 TABLET ORALLY EVERY 12 HRS NOT-TAKING NEXIUM 40 MG CAPSULE DELAYED RELEASE 1 CAPSULE ORALLY ONCE A DAY NOT-TAKING PREDNISONE 10 MG TABLET 1 TABLET ORALLY TAKE 5 TABS X 2 DAYS, 4 TAB X 2 DAY, 3 TAB X 2 DAY, 2 TABX 2 DAY, 1 TAB X 2 DAY NOT-TAKING FIORICET 50-300-40 MG CAPSULE 1 CAPSULE NEEDED ORALLY EVERY 6 HRS PRN PAIN MDD=4 NOT-TAKING SOMA 350 MG TABLET 1 TABLET NEEDED ORALLY NIGHTLY NOT-TAKING MOTRIN PM 200-38 MG TABLET 2 TABLETS AT BEDTIME NEEDED ORALLY ONCE A DAY NOT-TAKING FLEXERIL 10 MG TABLET 1 TABLET ORALLY THREE TIMES A DAY NOT-TAKING DICLOFENAC SODIUM 75 MG TABLET DELAYED RELEASE 1 TABLET WITH FOOD OR MILK ORALLY TWICE A DAY MEDICATION LIST REVIEWED AND RECONCILED WITH THE PATIENT PAST MEDICAL HISTORY HTN DEPRESSION / ANXIETY BRONCHIATUS HYPERLIPEDEMIA COSTOCHONDRIATUS BULGING DISC L4-5 AND L5-S1 ARTHRITIS BONE SPUR LEFT HIP SLEEP APNEA DIABETES NECK PAIN CA--CERVICLE PSORIOSIS DDD BONE SPURS IN NECK LUNG CANCER BULGING DISC IN NECK SKIN CA UNDER RIGHT EYE ALLERGIES CODEINE PHOSPHATE (FOR ALLERGIES USE ONLY): N/V/D - SIDE EFFECTS CRAB MEAT: RASH ON FACE - ALLERGY SURGICAL HISTORY HYSTERETOMY 2004 I+D OF INFECTED AREA UNDER LEFT BREAST 2010 PLATES AND SCREWS RIGHT WRIST 2011 CYSTS REMOVED ON NECK AND INNER LEFT THIGH REMOVED LEFT UPPER LOBE OF LUNG 07/04/18 SKIN CANCER REMOVED FROM UNDER RIGHT EYE 2017 FAMILY HISTORY FATHER: 59 YRS, DIAGNOSED WITH OTHER MALIGNANT NEOPLASM OF UNSPECIFIED SITE MOTHER: ALIVE 69 YRS, DIABETES, HYPERTENSION, UNSPECIFIED HEART DISEASE, UNSPECIFIED CEREBRAL ARTERY OCCLUSION WITH CEREBRAL INFARCTION SIBLINGS: ALIVE SON(S): ALIVE DAUGHTER(S): ALIVE 2 SON(S) , 1 DAUGHTER(S) . FATHER--LUNG CA\\N4 BROTHERS HAVE COPD, 1BROTHER--SEIZURES\\NYOUNGEST SON--ADHD. SOCIAL HISTORY GENERAL: TOBACCO USE ARE YOU A:FORMER SMOKER PAIN CLINIC PFS, CLERGY, PUBLIC HEALTH REFERRALS PFS REFERRAL NEEDED?NO CLERGY REFERRAL NEEDED?NO PUBLIC HEALTH REFERRAL NEEDED?NO HAS THE PATIENT BEEN EDUCATED REGARDING HIS/HER PLAN OF CARE?YES HAS THE PATIENT BEEN EDUCATED REGARDING PAIN, THE RISK FOR PAIN, THE IMPORTANCE OF EFFECTIVE PAIN MANAGEMENT, AND THE PAIN ASSESSMENT PROCESS?YES LATEX QUESTIONNAIRE LATEX ALLERGY : HAVE YOU EVER DEVELOPED ANY TYPE OF REACTION AFTER HANDLING LATEX PRODUCTS SUCH RUBBER GLOVES, CONDOMS, DIAPHRAGMS, BALLOONS, SOCKS, OR UNDERWEAR?YES - PLEASE INDICATE : ALLERGY SKIN TESTED (+) FOR LATEX LATEX ALLERGY : HAVE YOU EVER DEVELOPED ANY TYPE OF REACTION DURING OR AFTER DENTAL APPOINTMENT, VAGINAL/RECTAL EXAMINATION, SURGICAL PROCEDURE, OR ANY OTHER EXPOSURE?NO LATEX RISK : HAVE YOU EVER HAD ANY DIFFICULTY BREATHING OR HIVES AFTER EATING OR HANDLING ANY FRUITS, OR VEGETABLES; SUCH KIWI, BANANAS, STONE FRUITS, OR CHESTNUTSNO LATEX RISK : DO YOU HAVE A PREVIOUS PERSONAL HISTORY OF MORE THAN NINE SURGERIES, SPINA BIFIDA, OR REPEATED CATHERIZATIONS? 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 [address] LANGUAGE LANGUAGES SPOKEN:ZAMBIAN DOMESTIC VIOLENCE DO YOU FEEL SAFE IN YOUR ENVIRONMENT?YES ALCOHOL SCREENING DID YOU HAVE A DRINK CONTAINING ALCOHOL IN THE PAST YEAR?NO POINTS0 INTERPRETATIONNEGATIVE RECREATIONAL DRUG USE DRUG USE?NO LEARNING BARRIERS / SPECIAL NEEDS BARRIERS TO LEARNING?NO HEARING IMPAIRED?NO VISION IMPAIRED?YES :CORRECTIVE LENSES COGNITIVELY IMPAIRED?NO READINESS TO LEARN?YES LEARNING PREFERENCES?NO LEARNING CAPABILITIES PRESENT?YES EMOTIONAL BARRIERS?NO SPECIAL DEVICES?YES :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 AD. HOSPITALIZATION/MAJOR DIAGNOSTIC PROCEDURE HOSPITALIZATIONS RELATED TO SURGERY AND CHILDBIRTH REVIEW OF SYSTEMS REVIEWED BY: PROVIDER: MICHA BENNTET . CONSTITUTIONAL: ANY CHANGE IN YOUR MEDICAL CONDITION? NO . CHILLS NO . FEVER NO . INFECTION: DO YOU HAVE NEW INFECTIONS? NO . DO YOU HAVE HISTORY OF MRSA? NO . MUSCULOSKELETAL: ANY NEW PATTERNS OF PAIN OR NUMBNESS? YES, PAIN IN BACK AFTER LYING ON FLOOR AND GETTING UP AFTER A BIT, I CAN'T BREATHE. ALSO INCREASE IN PAIN LEFT HIP-IT LOCKS UP ON HER. SAW ORTHO AND HAD CORTISONE SHOT. PAIN IS DIFFERENT NOW DUE TO IT LOCKING UP, AND CAN'T MOVE HER LIG . GASTROENTEROLOGY: ANY NEW CHANGE IN BOWEL CONTROL? NO . GENITOURINARY: ANY NEW CHANGE IN BLADDER CONTROL? NO . IS THERE A CHANCE YOU COULD BE ? NO . HEMATOLOGY/LYMPH: DO YOU TAKE ANY BLOOD THINNERS? (FOR EXAMPLE- COUMADIN, PLAVIX, AGGRENOX, PLATEL, PRADAXA, OR XARELTO) NO . WHEN WAS YOUR LAST DOSE? DATE: TIME: . NEUROLOGY: HAVE YOU FALLEN IN THE PAST 12 MONTHS? NO . ANY NEW EXTREMITY NUMBNESS OR WEAKNESS? YES, DROPPING THINGS FROM LEFT HAND . CARDIOLOGY: DO YOU HAVE A PACEMAKER OR DEFIBRILLATOR? NO . RESPIRATORY: HAVE YOU BEEN SICK IN THE PAST WEEK? NO . FEVER NO . FLU LIKE SYMPTOMS? NO . COUGH NO . INTEGUMENTARY: DO YOU HAVE ANY RASHES OR OPEN SORES? YES, PSORIOSIS ON ELBOWS AND HANDS . ALLERGIC/IMMUNO: ARE YOU ALLERGIC TO IV DYE? NO . ANY NEW ALLERGIES? NO . PSYCHIATRIC: DO YOU HAVE THOUGHTS OF HURTING YOURSELF OR SOMEONE ELSE? NO . ARE YOU ABUSED, NEGLECTED, OR IN AN UNSAFE ENVIRONMENT? NO . ENDOCRINOLOGY: ARE YOU DIABETIC? NO . OTHER: DO YOU NEED ANY PRESCRIPTIONS? YES . IF YES, PLEASE LIST: HYDROCODONE [id number] . ANY NEW PROBLEMS WITH YOUR MEDICATIONS? NO . WHEN DID YOU LAST EAT? ____ . WHEN DID YOU LAST DRINK? ____ . WHAT DID YOU LAST DRINK? ____ . NAME OF PERSON DRIVING YOU HOME? ____ . DO YOU HAVE ANY OTHER QUESTIONS OR CONCERNS YES, "WHEN I LAY ON FLOOR, AND GET UP AFTER A BIT I CAN'T BREATHE-IN THE MIDDLE OF BACK PAIN." . VITAL SIGNS WT 238.4 LBS, HT 64 IN, BMI 40.92 INDEX, BP 141/78 MM HG, HR 82 /MIN, RR 18 /MIN, TEMP 97.4 F, OXYGEN SAT % 95%, SAFE IN ENV? (Y/N) Y, NA INITIALS [id number], REVIEWED BY: AD. EXAMINATION GENERAL EXAMINATION: GENERALNO ACUTE DISTRESS, WELL NOURISHED AND HYDRATED. PSYCHAPPROPRIATE MOOD AND AFFECT . LUNGS:CLEAR TO AUSCULTATION BILATERALLY, NO WHEEZES, RHONCHI, RALES. HEART:NO MURMURS, REGULAR RATE AND RHYTHM. ASSESSMENTS SPONDYLOSIS WITHOUT MYELOPATHY OR RADICULOPATHY, CERVICAL REGION - M47.812 (PRIMARY) TREATMENT SPONDYLOSIS WITHOUT MYELOPATHY OR RADICULOPATHY, CERVICAL REGION START ASPERCREME W/LIDOCAINE CREAM, 4 %, 1 APPLICATION, EXTERNALLY, THREE TIMES A DAY, 30 DAYS, 1 TUBE CLINICAL NOTES: 43-YEAR-OLD FEMALE IN FOR CHRONIC PAIN FOLLOW-UP. PATIENT WOULD LIKE TO TRY LIDOCAINE CREAM. GIVEN PRESENTING SYMPTOMS AND RESULTS PHYSICAL SUMMATION RECOMMENDED LIDOCAINE CREAM WITH FOLLOW-UP IN 2 MONTHS TO DETERMINE EFFICACY TREATMENT. PATIENT HAS EXPRESSED UNDERSTANDING OF AND WAS IN AGREEMENT WITH TREATMENT PLAN. GIVEN TIME TO ASK QUESTIONS AND EXPRESS CONCERNS., ISTOP REGISTRY REVIEWED AND DEMONSTRATES COMPLLIANCE. (REF # [id number] ) BRINGS IN MEDICATIONS WHICH IS APPROPRIATE FOR WHAT WAS DISPENSED. RECENT URINE TOXICOLOGY REVIEWED. NO UNAUTHORIZED MEDICATIONS. NO ILLICIT SUBSTANCES AND PRESCRIBED MEDICATIONS WERE PRESENT. PROCEDURE CODES FA211 ESTABILISHED PATIENT [facility] CHARGE DISPOSITION & COMMUNICATION FOLLOW UP 2 MONTHS (REASON: NECK PAIN, NEW MEDICATION) ELECTRONICALLY SIGNED BY BARBER RODRIGUEZ ON 04/20/2019 AT 11:48 AM EST DISCLAIMER : THIS IS A VISIT SUMMARY EXTRACTED FROM THE [employer] CHART. IT IS NOT A COPY OF THE [employer] PROGRESS NOTE. REKHA
== END ==
LOC: M PAIN 10:30
PROVIDERS: ATTEND Family Medicine
DX: M47.812 Spondylosis without myelopathy or radiculopathy, cervical region (principal); I10 Essential (primary) hypertension; E78.5 Hyperlipidemia, unspecified; M51.26 Other intervertebral disc displacement, lumbar region; E11.9 Type 2 diabetes mellitus without complications; L40.9 Psoriasis, unspecified; Z85.118 Personal history of other malignant neoplasm of bronchus and lung; Z85.828 Personal history of other malignant neoplasm of skin; Z87.891 Personal history of nicotine dependence; Z79.891 Long term (current) use of opiate analgesic; Z79.899 Other long term (current) drug therapy; Z88.5 Allergy status to narcotic agent; Z91.013 Allergy to seafood

== ENCOUNTER → 2020-01-04 | Outpatient (CLI) | payer OTHER ==
[~2020-01-04] MED LIST changes: -ALL10TAB29 PO; +CETI-24 PO
--- NOTE | 2020-01-06 02:41 | ECWPNPC ---
PATIENT NAME: KEMAL ZEE : 1975 GENDER: FEMALE VISIT DATE: 01/04/2020 DISCHARGE DATE: 01/04/20 1518 VISIT LOCKED DATE TIME: PHYSICIAN: SUGAR MURCIA RESOURCE: SUGAR MURCIA REASON FOR APPOINTMENT 1. BACK PAIN HISTORY OF PRESENT ILLNESS DEPRESSION SCREENING: PHQ-2 (2015 EDITION) LITTLE INTEREST OR PLEASURE IN DOING THINGS?NOT AT ALL FEELING DOWN, DEPRESSED, OR HOPELESS?SEVERAL DAYS TOTAL SCORE1 GENERAL: - 44-YEAR-OLD FEMALE IN FOR CHRONIC PAIN FOLLOW-UP. PATIENT RATES HER PAIN CURRENTLY AT A 3 OUT OF 10 AND DESCRIBES IT ACHING, AND SHARP. SHE DOES ADMITS TO INCREASED PAIN AND WOULD LIKE A REFERRAL TO PT FOR THIS. SHE FEELS THE MEDICATIONS ARE HELPFUL AND DENIES MED SIDE EFFECTS AT THIS TIME. FALL RISK SCREENING: SCREENING :NO FALLS REPORTED IN THE LAST YEAR PAIN SCREENING: PATIENT HAS A COMPLAINT OF ACUTE OR CHRONIC PAIN :YES LOCATION OF PAIN:LOW BACK INTENSITY OF PAIN (SCALE OF 1 TO 10):3 WHAT DOES YOUR PAIN FEEL LIKE:ACHING, SHARP DURATION:INTERMITTENT PAIN IS INCREASED BY:ACTIVITIES PAIN IS DECREASED BY:SITTING TREATMENT/MEDICATIONS USED TO MANAGE PAIN:OPIOIDS LEVEL OF RELIEF FROM PAIN TREATMENTS IN THE PAST:100% PAIN HAS INTERFERED WITH THE FOLLOWING:BATHING/DRESSING, WALKING ABILITY, HOUSEWORK, TRANSPORTATION, TOILETING NURSING NOTE: -. PAIN CENTER INTAKE QUESTIONS: DO YOU HAVE A HISTORY OF MRSA? :NO DO YOU TAKE A BLOOD THINNERS? :NO DO YOU HAVE ANY BLEEDING DISORDERS? :NO ANY NEW NUMBNESS OR WEAKNESS IN YOUR LEGS OR ARMS? :YES LEFT ARM PAIN ANY PACEMAKER,DEFIBRILLATOR, OR DORSAL COLUMN STIMULATOR? :NO DO YOU HAVE ANY RASHES OR OPEN SORES? :YES PSORIASIS ARE YOU ALLERGIC TO IV DYE? :NO ARE YOU DIABETIC? :YES ANY NEW PROBLEMS WITH YOUR MEDICATIONS? :NO HAVE YOU RECEIVED A VACCINE IN THE PAST 30 DAYS? :NO DO YOU PLAN TO RECEIVE A VACCINE IN THE NEXT 21 DAYS? :YES IF SO WHAT VACCINE AND WHEN? FLU VACCINE DO YOU NEED ANY PRESCRIPTION? :NO DO YOU TAKE ANY IMMUNOSUPPRESSIVE MEDICATIONS? :YES SKYRIZI FOR PSORIASIS IS THERE A CHANCE YOU COULD BE ? :NO ARE YOU BREAST FEEDING? :NO CURRENT MEDICATIONS TAKING TRAZODONE HCL 100 MG TABLET 1 TABLET AT BEDTIME NEEDED ORALLY ONCE A DAY TAKING VENTOLIN HFA 90 MCG/ACT AEROSOL SOLUTION 2 PUFFS NEEDED INHALATION EVERY 4 HRS TAKING LOSARTAN POTASSIUM 25 MG TABLET 1 TABLET ORALLY ONCE A DAY TAKING ZYRTEC 10 MG TABLET 1 TABLET ORALLY ONCE A DAY TAKING SIMVASTATIN 10 MG TABLET 1 TABLET IN THE EVENING ORALLY ONCE A DAY TAKING PAROXETINE HCL ER 37.5 MG TABLET EXTENDED RELEASE 24 HOUR 1 TABLET IN THE MORNING ORALLY ONCE A DAY TAKING MOMETASONE-AMMONIUM LACTATE 0.1 & 12 % KIT EXTERNALLY PRN TAKING OMEPRAZOLE 40 MG CAPSULE DELAYED RELEASE 1 CAPSULE ORALLY ONCE A DAY TAKING SPIRIVA RESPIMAT 1.25 MCG/ACT AEROSOL SOLUTION 2 PUFFS INHALATION ONCE A DAY TAKING SKYRIZI (150 MG DOSE) 75 MG/0.83ML PREFILLED SYRINGE KIT 1.66 ML SUBCUTANEOUS MONTHLY TAKING GLIPIZIDE XL 2.5 MG TABLET EXTENDED RELEASE 24 HOUR 1 TABLET WITH BREAKFAST ORALLY ONCE A DAY TAKING VOLTAREN 1 % GEL 4G NEEDED TRANSDERMAL FOUR TIMES DAILY NEEDED TAKING NORCO 10-325 MG TABLET 1 TABLET NEEDED ORALLY EVERY 6 HRS PRN PAIN MDD=3 NOT-TAKING GLUCOTROL XL 5 MG TABLET EXTENDED RELEASE 24 HOUR 1 TABLET ORALLY ONCE A DAY NOT-TAKING OTEZLA 30 MG TABLET 1 TABLET ORALLY TWICE A DAY NOT-TAKING SKELAXIN 800 MG TABLET 1 TABLET ORALLY THREE TIMES A DAY NOT-TAKING GABAPENTIN 300 MG CAPSULE 1 CAPSULE ORALLY BEFORE BEDTIME FOR PAIN NOT-TAKING CEFTIN 500 MG TABLET 1 TABLET ORALLY EVERY 12 HRS NOT-TAKING NEXIUM 40 MG CAPSULE DELAYED RELEASE 1 CAPSULE ORALLY ONCE A DAY NOT-TAKING PREDNISONE 10 MG TABLET 1 TABLET ORALLY TAKE 5 TABS X 2 DAYS, 4 TAB X 2 DAY, 3 TAB X 2 DAY, 2 TABX 2 DAY, 1 TAB X 2 DAY NOT-TAKING FIORICET 50-300-40 MG CAPSULE 1 CAPSULE NEEDED ORALLY EVERY 6 HRS PRN PAIN MDD=4 NOT-TAKING SOMA 350 MG TABLET 1 TABLET NEEDED ORALLY NIGHTLY NOT-TAKING MOTRIN PM 200-38 MG TABLET 2 TABLETS AT BEDTIME NEEDED ORALLY ONCE A DAY NOT-TAKING FLEXERIL 10 MG TABLET 1 TABLET ORALLY THREE TIMES A DAY NOT-TAKING DICLOFENAC SODIUM 75 MG TABLET DELAYED RELEASE 1 TABLET WITH FOOD OR MILK ORALLY TWICE A DAY MEDICATION LIST REVIEWED AND RECONCILED WITH THE PATIENT PAST MEDICAL HISTORY HTN DEPRESSION / ANXIETY BRONCHIATUS HYPERLIPEDEMIA COSTOCHONDRIATUS BULGING DISC L4-5 AND L5-S1 ARTHRITIS BONE SPUR LEFT HIP SLEEP APNEA DIABETES NECK PAIN CA--CERVICLE PSORIOSIS DDD BONE SPURS IN NECK LUNG CANCER BULGING DISC IN NECK SKIN CA UNDER RIGHT EYE ALLERGIES CODEINE PHOSPHATE (FOR ALLERGIES USE ONLY): N/V/D - SIDE EFFECTS CRAB MEAT: RASH ON FACE - ALLERGY SURGICAL HISTORY HYSTERETOMY 2004 I+D OF INFECTED AREA UNDER LEFT BREAST 2009 PLATES AND SCREWS RIGHT WRIST 2011 CYSTS REMOVED ON NECK AND INNER LEFT THIGH REMOVED LEFT UPPER LOBE OF LUNG 07/04/18 SKIN CANCER REMOVED FROM UNDER RIGHT EYE 2017 FAMILY HISTORY FATHER: 59 YRS, DIAGNOSED WITH OTHER MALIGNANT NEOPLASM OF UNSPECIFIED SITE MOTHER: ALIVE 69 YRS, UNSPECIFIED HEART DISEASE, UNSPECIFIED CEREBRAL ARTERY OCCLUSION WITH CEREBRAL INFARCTION, HYPERTENSION, DIABETES SIBLINGS: ALIVE SON(S): ALIVE DAUGHTER(S): ALIVE 2 SON(S) , 1 DAUGHTER(S) . FATHER--LUNG CA\N4 BROTHERS HAVE COPD, 1BROTHER--SEIZURES\NYOUNGEST SON--ADHD. SOCIAL HISTORY GENERAL: TOBACCO USE ARE YOU A:FORMER SMOKER LATEX QUESTIONNAIRE LATEX ALLERGY : HAVE YOU EVER DEVELOPED ANY TYPE OF REACTION AFTER HANDLING LATEX PRODUCTS SUCH RUBBER GLOVES, CONDOMS, DIAPHRAGMS, BALLOONS, SOCKS, OR UNDERWEAR?YES LATEX ALLERGY : HAVE YOU EVER DEVELOPED ANY TYPE OF REACTION DURING OR AFTER DENTAL APPOINTMENT, VAGINAL/RECTAL EXAMINATION, SURGICAL PROCEDURE, OR ANY OTHER EXPOSURE?NO - PLEASE INDICATE : ALLERGY SKIN TESTED (+) FOR LATEX DATE ASKED : 09/11/2019 LATEX RISK : HAVE YOU EVER HAD ANY DIFFICULTY BREATHING OR HIVES AFTER EATING OR HANDLING ANY FRUITS, OR VEGETABLES; SUCH KIWI, BANANAS, STONE FRUITS, OR CHESTNUTSNO LATEX RISK : DO YOU HAVE A PREVIOUS PERSONAL HISTORY OF MORE THAN NINE SURGERIES, SPINA BIFIDA, OR REPEATED CATHERIZATIONS? NO LATEX RISK : ARE YOU FREQUENTLY EXPOSED TO LATEX PRODUCTS IN YOUR OCCUPATION?NO ALCOHOL SCREENING DID YOU HAVE A DRINK CONTAINING ALCOHOL IN THE PAST YEAR?NO POINTS0 INTERPRETATIONNEGATIVE RECREATIONAL DRUG USE DRUG USE?NO BUDDHIST [id number]DAEISM [facility] MANDAEISM LANGUAGE LANGUAGES SPOKEN:SAMMARINESE EDUCATION LEVEL OF EDUCATION:COLLEGE LEARNING BARRIERS / SPECIAL NEEDS BARRIERS TO LEARNING?NO HEARING IMPAIRED?NO VISION IMPAIRED?YES COGNITIVELY IMPAIRED?NO :CORRECTIVE LENSES READINESS TO LEARN?YES LEARNING PREFERENCES?NO LEARNING CAPABILITIES PRESENT?YES EMOTIONAL BARRIERS?NO SPECIAL DEVICES?YES :CANE TUBE DRAW HELPER NEEDED?NO DOMESTIC VIOLENCE DO YOU FEEL SAFE IN YOUR ENVIRONMENT?YES PAIN CLINIC PFS, CLERGY, PUBLIC HEALTH REFERRALS PFS REFERRAL NEEDED?NO CLERGY REFERRAL NEEDED?NO PUBLIC HEALTH REFERRAL NEEDED?NO HAS THE PATIENT BEEN EDUCATED REGARDING HIS/HER PLAN OF CARE?YES HAS THE PATIENT BEEN EDUCATED REGARDING PAIN, THE RISK FOR PAIN, THE IMPORTANCE OF EFFECTIVE PAIN MANAGEMENT, AND THE PAIN ASSESSMENT PROCESS?YES ADVANCE DIRECTIVE ADVANCE DIRECTIVE DISCUSSED WITH PATIENT:YES HCP - KEYSHA ZEE () & MARYSOL PETERCallie (MOTHER) HOSPITALIZATION/MAJOR DIAGNOSTIC PROCEDURE HOSPITALIZATIONS RELATED TO SURGERY AND CHILDBIRTH REVIEW OF SYSTEMS CONSTITUTIONAL: ANY RECENT FEVER NO . CHILLS NO . WEIGHT CHANGE OF UNKNOWN REASONS NO . GASTROENTEROLOGY: NEW UNEXPLAINABLE CHANGES IN BOWEL CONTROL NO . CONSTIPATION NO . GENITOURINARY: ANY NEW CHANGE IN BLADDER CONTROL? NO . NEUROLOGY: NEW ONSET DIZZINESS OR NEUROLOGICAL CHANGES NOT MENTIONED NO . NEW NUMBNESS OR PAIN PATTERNS NOT MENTIONED AND PERTINENT TO TODAY'S VISIT NO . CARDIOLOGY: NEW CHEST PRESSURE NO . NEW CHEST PAIN NO . RESPIRATORY: UNEXPLAINABLE COUGH NO . NEW SHORTNESS OF BREATH NO . VITAL SIGNS WT 238.0 LBS, HT 64 IN, BMI 40.85 INDEX, BP 169/98 MM HG, REPEAT BP 132/67 MM HG, HR 81 /MIN, RR 18 /MIN, TEMP 95.7 F, OXYGEN SAT % 94%, SAFE IN ENV? (Y/N) Y, NA INITIALS SC 14:44, REVIEWED BY: EDDIE. EXAMINATION GENERAL EXAMINATION: GENERALNO ACUTE DISTRESS, WELL NOURISHED AND HYDRATED. PSYCHAPPROPRIATE MOOD AND AFFECT . LUNGS:CLEAR TO AUSCULTATION BILATERALLY, NO WHEEZES, RHONCHI, RALES. HEART:NO MURMURS, REGULAR RATE AND RHYTHM. ASSESSMENTS SPONDYLOSIS WITHOUT MYELOPATHY OR RADICULOPATHY, CERVICAL REGION - M47.812 (PRIMARY) TREATMENT SPONDYLOSIS WITHOUT MYELOPATHY OR RADICULOPATHY, CERVICAL REGION NOTES: 44-YEAR-OLD FEMALE IN FOR CHRONIC PAIN FOLLOW-UP. GIVEN PRESENTING SYMPTOMS RECOMMENDED REFERRAL TO PHYSICAL THERAPY AND CONTINUATION OF CURRENT MEDICATION REGIMEN WITH FOLLOW-UP IN 3 MONTHS. PATIENT HAS EXPRESSED UNDERSTANDING OF AND WAS IN AGREEMENT WITH TREATMENT PLAN. GIVEN TIME TO ASK QUESTIONS AND EXPRESS CONCERNS. , ISTOP REGISTRY REVIEWED AND DEMONSTRATES COMPLLIANCE. (REF # [id number] ) BRINGS IN MEDICATIONS WHICH IS APPROPRIATE FOR WHAT WAS DISPENSED. RECENT URINE TOXICOLOGY REVIEWED. NO UNAUTHORIZED MEDICATIONS. NO ILLICIT SUBSTANCES AND PRESCRIBED MEDICATIONS WERE PRESENT. REFERRAL TO:PHYSICAL THERAPY CARTHAGEPHYSICAL THERAPIST REASON:NECK PAIN PROCEDURE CODES FA211 ESTABILISHED PATIENT [facility] CHARGE DISPOSITION & COMMUNICATION FOLLOW UP 3 MONTHS (REASON: NECK PAIN ) ELECTRONICALLY SIGNED BY BARBER RODRIGUEZ ON 01/05/2020 AT 08:48 AM EST DISCLAIMER : THIS IS A VISIT SUMMARY EXTRACTED FROM THE [employer] CHART. IT IS NOT A COPY OF THE [employer] PROGRESS NOTE. REKHA
== END ==
LOC: M PAIN 14:30
PROVIDERS: ATTEND Family Medicine
DX: M47.812 Spondylosis without myelopathy or radiculopathy, cervical region (principal); G89.29 Other chronic pain; E11.9 Type 2 diabetes mellitus without complications; I10 Essential (primary) hypertension; G47.30 Sleep apnea, unspecified; Z86.59 Personal history of other mental and behavioral disorders; Z87.891 Personal history of nicotine dependence; Z88.5 Allergy status to narcotic agent; Z91.013 Allergy to seafood; E66.01 Morbid (severe) obesity due to excess calories; Z68.41 Body mass index [BMI] 40.0-44.9, adult; Z79.84 Long term (current) use of oral hypoglycemic drugs; Z79.899 Other long term (current) drug therapy

== ENCOUNTER → 2020-04-19 | Outpatient (CLI) | payer OTHER ==
--- NOTE | 2020-04-21 04:02 | ECWPNPC ---
PATIENT NAME: KEMAL ZEE : 1975 GENDER: FEMALE VISIT DATE: 04/19/2020 DISCHARGE DATE: 04/19/20 1446 VISIT LOCKED DATE TIME: PHYSICIAN: SUGAR MURCIA RESOURCE: SUGAR MURCIA REASON FOR APPOINTMENT 1. NECK PAIN HISTORY OF PRESENT ILLNESS GENERAL: - 44 OLD FEMALE IN FOR CHRONIC PAIN FOLLOW-UP. SHE RATES HER PAIN CURRENTLY AT A FOURTH 10 AND DESCRIBES IT ACHING, AND STABBING. SHE FEELS MEDICATIONS ARE HELPFUL AND DENIES MED SIDE EFFECTS TIME. FALL RISK SCREENING: SCREENING :NO FALLS REPORTED IN THE LAST YEAR NURSING NOTE: -. PAIN CENTER INTAKE QUESTIONS: DO YOU HAVE A HISTORY OF MRSA? :NO DO YOU TAKE A BLOOD THINNERS? :NO DO YOU HAVE ANY BLEEDING DISORDERS? :NO ANY NEW NUMBNESS OR WEAKNESS IN YOUR LEGS OR ARMS? :NO ANY PACEMAKER,DEFIBRILLATOR, OR DORSAL COLUMN STIMULATOR? :NO DO YOU HAVE ANY RASHES OR OPEN SORES? :YES PSORIASIS ARE YOU ALLERGIC TO IV DYE? :NO ARE YOU DIABETIC? :YES ANY NEW PROBLEMS WITH YOUR MEDICATIONS? :NO HAVE YOU RECEIVED A VACCINE IN THE PAST 30 DAYS? :NO DO YOU PLAN TO RECEIVE A VACCINE IN THE NEXT 21 DAYS? :NO DO YOU NEED ANY PRESCRIPTION? :YES HYDRO DO YOU TAKE ANY IMMUNOSUPPRESSIVE MEDICATIONS? :YES DO YOU HAVE ANY KIDNEY OR LIVER DISEASE? :NO IS THERE A CHANCE YOU COULD BE ? :NO ARE YOU BREAST FEEDING? :NO PAIN SCREENING: PATIENT HAS A COMPLAINT OF ACUTE OR CHRONIC PAIN :YES LOCATION OF PAIN:NECK, LOW BACK INTENSITY OF PAIN (SCALE OF 1 TO 10):4 WHAT DOES YOUR PAIN FEEL LIKE:ACHING, STABBING DURATION:INTERMITTENT PAIN IS INCREASED BY:ACTIVITIES PAIN IS DECREASED BY:USE OF PAIN MEDICATIONS, SITTING CURRENT MEDICATIONS TAKING TRAZODONE HCL 100 MG TABLET 1 TABLET AT BEDTIME NEEDED ORALLY ONCE A DAY TAKING VENTOLIN HFA 90 MCG/ACT AEROSOL SOLUTION 2 PUFFS NEEDED INHALATION EVERY 4 HRS TAKING LOSARTAN POTASSIUM 25 MG TABLET 1 TABLET ORALLY ONCE A DAY TAKING ZYRTEC 10 MG TABLET 1 TABLET ORALLY ONCE A DAY TAKING SIMVASTATIN 10 MG TABLET 1 TABLET IN THE EVENING ORALLY ONCE A DAY TAKING PAROXETINE HCL ER 37.5 MG TABLET EXTENDED RELEASE 24 HOUR 1 TABLET IN THE MORNING ORALLY ONCE A DAY TAKING MOMETASONE-AMMONIUM LACTATE 0.1 & 12 % KIT EXTERNALLY PRN TAKING OMEPRAZOLE 40 MG CAPSULE DELAYED RELEASE 1 CAPSULE ORALLY ONCE A DAY TAKING SPIRIVA RESPIMAT 1.25 MCG/ACT AEROSOL SOLUTION 2 PUFFS INHALATION ONCE A DAY TAKING SKYRIZI (150 MG DOSE) 75 MG/0.83ML PREFILLED SYRINGE KIT 1.66 ML SUBCUTANEOUS MONTHLY TAKING GLIPIZIDE XL 2.5 MG TABLET EXTENDED RELEASE 24 HOUR 1 TABLET WITH BREAKFAST ORALLY ONCE A DAY TAKING VOLTAREN 1 % GEL 4G NEEDED TRANSDERMAL FOUR TIMES DAILY NEEDED TAKING NORCO 10-325 MG TABLET 1 TABLET NEEDED ORALLY EVERY 6 HRS PRN PAIN MDD=3 NOT-TAKING GLUCOTROL XL 5 MG TABLET EXTENDED RELEASE 24 HOUR 1 TABLET ORALLY ONCE A DAY NOT-TAKING OTEZLA 30 MG TABLET 1 TABLET ORALLY TWICE A DAY NOT-TAKING SKELAXIN 800 MG TABLET 1 TABLET ORALLY THREE TIMES A DAY NOT-TAKING GABAPENTIN 300 MG CAPSULE 1 CAPSULE ORALLY BEFORE BEDTIME FOR PAIN NOT-TAKING CEFTIN 500 MG TABLET 1 TABLET ORALLY EVERY 12 HRS NOT-TAKING NEXIUM 40 MG CAPSULE DELAYED RELEASE 1 CAPSULE ORALLY ONCE A DAY NOT-TAKING PREDNISONE 10 MG TABLET 1 TABLET ORALLY TAKE 5 TABS X 2 DAYS, 4 TAB X 2 DAY, 3 TAB X 2 DAY, 2 TABX 2 DAY, 1 TAB X 2 DAY NOT-TAKING FIORICET 50-300-40 MG CAPSULE 1 CAPSULE NEEDED ORALLY EVERY 6 HRS PRN PAIN MDD=4 NOT-TAKING SOMA 350 MG TABLET 1 TABLET NEEDED ORALLY NIGHTLY NOT-TAKING MOTRIN PM 200-38 MG TABLET 2 TABLETS AT BEDTIME NEEDED ORALLY ONCE A DAY NOT-TAKING FLEXERIL 10 MG TABLET 1 TABLET ORALLY THREE TIMES A DAY NOT-TAKING DICLOFENAC SODIUM 75 MG TABLET DELAYED RELEASE 1 TABLET WITH FOOD OR MILK ORALLY TWICE A DAY MEDICATION LIST REVIEWED AND RECONCILED WITH THE PATIENT PAST MEDICAL HISTORY HTN DEPRESSION / ANXIETY BRONCHIATUS HYPERLIPEDEMIA COSTOCHONDRIATUS BULGING DISC L4-5 AND L5-S1 ARTHRITIS BONE SPUR LEFT HIP SLEEP APNEA DIABETES NECK PAIN CA--CERVICLE PSORIOSIS DDD BONE SPURS IN NECK LUNG CANCER BULGING DISC IN NECK SKIN CA UNDER RIGHT EYE ALLERGIES CODEINE PHOSPHATE (FOR ALLERGIES USE ONLY): N/V/D - SIDE EFFECTS CRAB MEAT: RASH ON FACE - ALLERGY SOCIAL HISTORY GENERAL: TOBACCO USE ARE YOU A:FORMER SMOKER LATEX QUESTIONNAIRE LATEX ALLERGY : HAVE YOU EVER DEVELOPED ANY TYPE OF REACTION AFTER HANDLING LATEX PRODUCTS SUCH RUBBER GLOVES, CONDOMS, DIAPHRAGMS, BALLOONS, SOCKS, OR UNDERWEAR?YES LATEX ALLERGY : HAVE YOU EVER DEVELOPED ANY TYPE OF REACTION DURING OR AFTER DENTAL APPOINTMENT, VAGINAL/RECTAL EXAMINATION, SURGICAL PROCEDURE, OR ANY OTHER EXPOSURE?NO - PLEASE INDICATE : ALLERGY SKIN TESTED (+) FOR LATEX DATE ASKED : 09/11/2019 LATEX RISK : HAVE YOU EVER HAD ANY DIFFICULTY BREATHING OR HIVES AFTER EATING OR HANDLING ANY FRUITS, OR VEGETABLES; SUCH KIWI, BANANAS, STONE FRUITS, OR CHESTNUTSNO LATEX RISK : DO YOU HAVE A PREVIOUS PERSONAL HISTORY OF MORE THAN NINE SURGERIES, SPINA BIFIDA, OR REPEATED CATHERIZATIONS? NO LATEX RISK : ARE YOU FREQUENTLY EXPOSED TO LATEX PRODUCTS IN YOUR OCCUPATION?NO ALCOHOL SCREENING DID YOU HAVE A DRINK CONTAINING ALCOHOL IN THE PAST YEAR?NO POINTS0 INTERPRETATIONNEGATIVE RECREATIONAL DRUG USE DRUG USE?NO RESTORATIONIST [id number] [place] [address] LANGUAGE LANGUAGES SPOKEN:PUERTO RICAN EDUCATION LEVEL OF EDUCATION:COLLEGE LEARNING BARRIERS / SPECIAL NEEDS BARRIERS TO LEARNING?NO HEARING IMPAIRED?NO VISION IMPAIRED?YES COGNITIVELY IMPAIRED?NO :CORRECTIVE LENSES READINESS TO LEARN?YES LEARNING PREFERENCES?NO LEARNING CAPABILITIES PRESENT?YES EMOTIONAL BARRIERS?NO SPECIAL DEVICES?YES :CANE CLINICAL RESEARCHER NEEDED?NO DOMESTIC VIOLENCE DO YOU FEEL SAFE IN YOUR ENVIRONMENT?YES - PFS REFERRAL NEEDED?NO CLERGY REFERRAL NEEDED?NO PUBLIC HEALTH REFERRAL NEEDED?NO HAS THE PATIENT BEEN EDUCATED REGARDING HIS/HER PLAN OF CARE?YES HAS THE PATIENT BEEN EDUCATED REGARDING PAIN, THE RISK FOR PAIN, THE IMPORTANCE OF EFFECTIVE PAIN MANAGEMENT, AND THE PAIN ASSESSMENT PROCESS?YES ADVANCE DIRECTIVE ADVANCE DIRECTIVE DISCUSSED WITH PATIENT:YES HCP - KEYSHA YAYO () & MARYSOL CORBIN (MOTHER) REVIEW OF SYSTEMS CONSTITUTIONAL: ANY RECENT FEVER NO . CHILLS NO . WEIGHT CHANGE OF UNKNOWN REASONS NO . GASTROENTEROLOGY: NEW UNEXPLAINABLE CHANGES IN BOWEL CONTROL NO . CONSTIPATION NO . GENITOURINARY: ANY NEW CHANGE IN BLADDER CONTROL? NO . NEUROLOGY: NEW ONSET DIZZINESS OR NEUROLOGICAL CHANGES NOT MENTIONED NO . NEW NUMBNESS OR PAIN PATTERNS NOT MENTIONED AND PERTINENT TO TODAY'S VISIT NO . CARDIOLOGY: NEW CHEST PRESSURE NO . PATIENT DENIES NO . RESPIRATORY: UNEXPLAINABLE COUGH NO . NEW SHORTNESS OF BREATH NO . VITAL SIGNS WT 246 LBS, HT 64 IN, BMI 42.22 INDEX, BP 147/82 MM HG, HR 93 /MIN, RR 16 /MIN, TEMP 98.0 F, OXYGEN SAT % 95, SAFE IN ENV? (Y/N) Y, REVIEWED BY: EM. EXAMINATION GENERAL EXAMINATION: GENERALNO ACUTE DISTRESS, WELL NOURISHED AND HYDRATED. PSYCHAPPROPRIATE MOOD AND AFFECT . LUNGS:CLEAR TO AUSCULTATION BILATERALLY, NO WHEEZES, RHONCHI, RALES. HEART:NO MURMURS, REGULAR RATE AND RHYTHM. ASSESSMENTS SPONDYLOSIS WITHOUT MYELOPATHY OR RADICULOPATHY, CERVICAL REGION - M47.812 (PRIMARY), RISK: (NULL) TREATMENT SPONDYLOSIS WITHOUT MYELOPATHY OR RADICULOPATHY, CERVICAL REGION CONTINUE NORCO TABLET, 10-325 MG, 1 TABLET NEEDED, ORALLY, EVERY 6 HRS PRN PAIN MDD=3, 30 DAYS, 90 NOTES: 44 OLD FEMALE IN FOR CHRONIC PAIN FOLLOW-UP. GIVEN PRESENTING SYMPTOMS RECOMMEND CONTINUATION CURRENT MEDICATION REGIMEN WITH FOLLOW-UP IN 3 MONTHS. PATIENT HAS EXPRESSED UNDERSTANDING OF AND WAS IN AGREEMENT WITH TREATMENT PLAN. GIVEN TIME TO ASK QUESTIONS AND EXPRESS CONCERNS. , ISTOP REGISTRY REVIEWED AND DEMONSTRATES COMPLLIANCE. (REF #[id number] ) BRINGS IN MEDICATIONS WHICH IS APPROPRIATE FOR WHAT WAS DISPENSED. RECENT URINE TOXICOLOGY REVIEWED. NO UNAUTHORIZED MEDICATIONS. NO ILLICIT SUBSTANCES AND PRESCRIBED MEDICATIONS WERE PRESENT. PROCEDURE CODES FA211 ESTABILISHED PATIENT [facility] CHARGE DISPOSITION & COMMUNICATION FOLLOW UP 3 MONTHS (REASON: NECK PAIN ) ELECTRONICALLY SIGNED BY BARBER RODRIGUEZ ON 04/20/2020 AT 11:39 AM EST DISCLAIMER : THIS IS A VISIT SUMMARY EXTRACTED FROM THE [email or web address] CHART. IT IS NOT A COPY OF THE [email or web address] PROGRESS NOTE. REKHA
== END ==
LOC: M PAIN 14:15
PROVIDERS: ATTEND Family Medicine
DX: M47.812 Spondylosis without myelopathy or radiculopathy, cervical region (principal); G89.29 Other chronic pain; E11.9 Type 2 diabetes mellitus without complications; G47.30 Sleep apnea, unspecified; Z86.59 Personal history of other mental and behavioral disorders; Z87.891 Personal history of nicotine dependence; Z88.5 Allergy status to narcotic agent; Z91.013 Allergy to seafood; E66.01 Morbid (severe) obesity due to excess calories; Z68.41 Body mass index [BMI] 40.0-44.9, adult; Z79.84 Long term (current) use of oral hypoglycemic drugs; Z79.899 Other long term (current) drug therapy

== ENCOUNTER → 2020-08-18 | Outpatient (CLI) | payer OTHER ==
[~2020-08-18] MED LIST changes: +GABA-283 PO; -GABA-845 PO; +OMEP40CA4 PO; -OMEP40CA97 PO
--- NOTE | 2020-08-18 09:23 | PFTRPT ---
Height: 64.00 Inches Weight: 231.00 Lbs BSA: 2.08 Diagnosis: R94.2 DATE: 08/18/2020 ORDERED BY: Lee Israel M.D. Pre and post bronchodilator studies have excellent technical quality. Forced vital capacity is reduced. FEV1 is in proportion. Obstructive index is therefore normal. Expiratory limit of the flow-volume loop does suggest some degree of nonspecific flow rate limitation. No significant bronchodilator response is identified. Total lung capacity is normal. Residual volume does raise the question of air trapping. Diffusing capacity is significantly reduced, but is appropriate for alveolar volume. Hemoglobin is acceptable at 13.8. Airway resistance and conductance are normal. IMPRESSION: Suspected degree of air trapping. Diffusion capacity impairment. Please correlate clinically. MTDD
== END ==
LOC: M CARPUL 08:13
PROVIDERS: ATTEND Internal Medicine Pulmonary Disease
DX: R94.2 Abnormal results of pulmonary function studies (principal)

== ENCOUNTER → 2020-08-19 | Outpatient (CLI) | payer OTHER ==
--- NOTE | 2020-08-24 05:05 | ECWPNPC ---
PATIENT NAME: KEMAL ZEE : 1975 GENDER: FEMALE VISIT DATE: 08/19/2020 DISCHARGE DATE: 08/19/20 09 VISIT LOCKED DATE TIME: PHYSICIAN: SUGAR MURCIA RESOURCE: SUGAR MURCIA REASON FOR APPOINTMENT 1. NECK PAIN HISTORY OF PRESENT ILLNESS DEPRESSION SCREENING: PHQ-2 (2015 EDITION) LITTLE INTEREST OR PLEASURE IN DOING THINGS?NOT AT ALL FEELING DOWN, DEPRESSED, OR HOPELESS?NOT AT ALL TOTAL SCORE0 GENERAL: HPI 45-YEAR-OLD FEMALE IN FOR CHRONIC PAIN FOLLOW-UP. SHE RATES HER PAIN CURRENTLY AT A 4-10 AND STATES THAT IT CAN GET UP TO 10 OUT OF 10 WITH MOVEMENT. SHE DESCRIBES HER PAIN ACHING, STABBING, AND A DULLNESS.. -. FALL RISK SCREENING: SCREENING : NO FALLS REPORTED IN THE LAST YEAR. PAIN SCREENING: PATIENT HAS A COMPLAINT OF ACUTE OR CHRONIC PAIN :YES LOCATION OF PAIN:NECK INTENSITY OF PAIN (SCALE OF 1 TO 10):4 PAIN INCREASES WITH MOVEMENT TO A 10. WHAT DOES YOUR PAIN FEEL LIKE:ACHING, STABBING, OTHER DULLNESS DURATION:CONTINOUS, CONSTANT, AWAKENS FROM SLEEP PAIN IS INCREASED BY:ACTIVITIES, PROLONGED STANDING PAIN IS DECREASED BY:USE OF PAIN MEDICATIONS, SITTING NURSING NOTE: -. PAIN CENTER INTAKE QUESTIONS: DO YOU HAVE A HISTORY OF MRSA? :NO DO YOU TAKE A BLOOD THINNERS? :NO DO YOU HAVE ANY BLEEDING DISORDERS? :NO ANY NEW NUMBNESS OR WEAKNESS IN YOUR LEGS OR ARMS? :NO ANY PACEMAKER,DEFIBRILLATOR, OR DORSAL COLUMN STIMULATOR? :NO DO YOU HAVE ANY RASHES OR OPEN SORES? :YES PSORIASIS ARE YOU ALLERGIC TO IV DYE? :NO ARE YOU DIABETIC? :YES ANY NEW PROBLEMS WITH YOUR MEDICATIONS? :NO HAVE YOU RECEIVED A VACCINE IN THE PAST 30 DAYS? :NO DO YOU PLAN TO RECEIVE A VACCINE IN THE NEXT 21 DAYS? :NO DO YOU NEED ANY PRESCRIPTION? :YES HYDRO DO YOU TAKE ANY IMMUNOSUPPRESSIVE MEDICATIONS? :YES NATALIA DO YOU HAVE ANY KIDNEY OR LIVER DISEASE? :NO IS THERE A CHANCE YOU COULD BE ? :NO ARE YOU BREAST FEEDING? :NO CURRENT MEDICATIONS TAKING TRULICITY 0.75 MG/0.5ML SOLUTION PEN-INJECTOR DIRECTED SUBCUTANEOUS TAKING TRAZODONE HCL 100 MG TABLET 1 TABLET AT BEDTIME NEEDED ORALLY ONCE A DAY TAKING VENTOLIN HFA 90 MCG/ACT AEROSOL SOLUTION 2 PUFFS NEEDED INHALATION EVERY 4 HRS TAKING LOSARTAN POTASSIUM 25 MG TABLET 1 TABLET ORALLY ONCE A DAY TAKING ZYRTEC 10 MG TABLET 1 TABLET ORALLY ONCE A DAY TAKING SIMVASTATIN 10 MG TABLET 1 TABLET IN THE EVENING ORALLY ONCE A DAY TAKING PAROXETINE HCL ER 37.5 MG TABLET EXTENDED RELEASE 24 HOUR 1 TABLET IN THE MORNING ORALLY ONCE A DAY TAKING MOMETASONE-AMMONIUM LACTATE 0.1 & 12 % KIT EXTERNALLY PRN TAKING OMEPRAZOLE 40 MG CAPSULE DELAYED RELEASE 1 CAPSULE ORALLY ONCE A DAY TAKING SPIRIVA RESPIMAT 1.25 MCG/ACT AEROSOL SOLUTION 2 PUFFS INHALATION ONCE A DAY TAKING SKYRIZI (150 MG DOSE) 75 MG/0.83ML PREFILLED SYRINGE KIT 1.66 ML SUBCUTANEOUS MONTHLY TAKING GLIPIZIDE XL 2.5 MG TABLET EXTENDED RELEASE 24 HOUR 1 TABLET WITH BREAKFAST ORALLY ONCE A DAY TAKING NORCO 10-325 MG TABLET 1 TABLET NEEDED ORALLY EVERY 6 HRS PRN PAIN MDD=3 TAKING GLUCOTROL XL 2.5 MG TABLET EXTENDED RELEASE 24 HOUR 1 TABLET ORALLY ONCE A DAY NOT-TAKING VOLTAREN 1 % GEL 4G NEEDED TRANSDERMAL FOUR TIMES DAILY NEEDED NOT-TAKING OTEZLA 30 MG TABLET 1 TABLET ORALLY TWICE A DAY NOT-TAKING SKELAXIN 800 MG TABLET 1 TABLET ORALLY THREE TIMES A DAY NOT-TAKING GABAPENTIN 300 MG CAPSULE 1 CAPSULE ORALLY BEFORE BEDTIME FOR PAIN NOT-TAKING CEFTIN 500 MG TABLET 1 TABLET ORALLY EVERY 12 HRS NOT-TAKING NEXIUM 40 MG CAPSULE DELAYED RELEASE 1 CAPSULE ORALLY ONCE A DAY NOT-TAKING PREDNISONE 10 MG TABLET 1 TABLET ORALLY TAKE 5 TABS X 2 DAYS, 4 TAB X 2 DAY, 3 TAB X 2 DAY, 2 TABX 2 DAY, 1 TAB X 2 DAY NOT-TAKING FIORICET 50-300-40 MG CAPSULE 1 CAPSULE NEEDED ORALLY EVERY 6 HRS PRN PAIN MDD=4 NOT-TAKING SOMA 350 MG TABLET 1 TABLET NEEDED ORALLY NIGHTLY NOT-TAKING MOTRIN PM 200-38 MG TABLET 2 TABLETS AT BEDTIME NEEDED ORALLY ONCE A DAY NOT-TAKING FLEXERIL 10 MG TABLET 1 TABLET ORALLY THREE TIMES A DAY NOT-TAKING DICLOFENAC SODIUM 75 MG TABLET DELAYED RELEASE 1 TABLET WITH FOOD OR MILK ORALLY TWICE A DAY MEDICATION LIST REVIEWED AND RECONCILED WITH THE PATIENT PAST MEDICAL HISTORY HTN DEPRESSION / ANXIETY BRONCHIATUS HYPERLIPEDEMIA COSTOCHONDRIATUS BULGING DISC L4-5 AND L5-S1 ARTHRITIS BONE SPUR LEFT HIP SLEEP APNEA DIABETES NECK PAIN CA--CERVICLE PSORIOSIS DDD BONE SPURS IN NECK LUNG CANCER BULGING DISC IN NECK SKIN CA UNDER RIGHT EYE ALLERGIES CODEINE PHOSPHATE (FOR ALLERGIES USE ONLY): N/V/D - SIDE EFFECTS CRAB MEAT: RASH ON FACE - ALLERGY SOCIAL HISTORY GENERAL: TOBACCO USE ARE YOU A:FORMER SMOKER LATEX QUESTIONNAIRE LATEX ALLERGY : HAVE YOU EVER DEVELOPED ANY TYPE OF REACTION AFTER HANDLING LATEX PRODUCTS SUCH RUBBER GLOVES, CONDOMS, DIAPHRAGMS, BALLOONS, SOCKS, OR UNDERWEAR?YES - PLEASE INDICATE : ALLERGY SKIN TESTED (+) FOR LATEX LATEX ALLERGY : HAVE YOU EVER DEVELOPED ANY TYPE OF REACTION DURING OR AFTER DENTAL APPOINTMENT, VAGINAL/RECTAL EXAMINATION, SURGICAL PROCEDURE, OR ANY OTHER EXPOSURE?NO LATEX RISK : HAVE YOU EVER HAD ANY DIFFICULTY BREATHING OR HIVES AFTER EATING OR HANDLING ANY FRUITS, OR VEGETABLES; SUCH KIWI, BANANAS, STONE FRUITS, OR CHESTNUTSNO LATEX RISK : DO YOU HAVE A PREVIOUS PERSONAL HISTORY OF MORE THAN NINE SURGERIES, SPINA BIFIDA, OR REPEATED CATHERIZATIONS? NO LATEX RISK : ARE YOU FREQUENTLY EXPOSED TO LATEX PRODUCTS IN YOUR OCCUPATION?NO DATE ASKED : 08/19/2020 ALCOHOL USE: NO. ALCOHOL SCREENING DID YOU HAVE A DRINK CONTAINING ALCOHOL IN THE PAST YEAR?NO POINTS0 INTERPRETATIONNEGATIVE RECREATIONAL DRUG USE DRUG USE?YES GUMMIES WITH [facility] TAKEN IN 06/[id number] [place] [id number] LANGUAGE LANGUAGES SPOKEN:MOHAWK EDUCATION LEVEL OF EDUCATION:COLLEGE LEARNING BARRIERS / SPECIAL NEEDS CHANGE FROM LAST VISIT?YES BARRIERS TO LEARNING?NO HEARING IMPAIRED?NO VISION IMPAIRED?YES :CORRECTIVE LENSES COGNITIVELY IMPAIRED?NO READINESS TO LEARN?YES LEARNING PREFERENCES?NO LEARNING CAPABILITIES PRESENT?YES EMOTIONAL BARRIERS?NO SPECIAL DEVICES?YES :CANE MOTORIZED SCOOTER WHEN IN STORE TECHNICAL REP NEEDED?NO DOMESTIC VIOLENCE DO YOU FEEL SAFE IN YOUR ENVIRONMENT?YES - PFS REFERRAL NEEDED?NO CLERGY REFERRAL NEEDED?NO PUBLIC HEALTH REFERRAL NEEDED?NO HAS THE PATIENT BEEN EDUCATED REGARDING HIS/HER PLAN OF CARE?YES HAS THE PATIENT BEEN EDUCATED REGARDING PAIN, THE RISK FOR PAIN, THE IMPORTANCE OF EFFECTIVE PAIN MANAGEMENT, AND THE PAIN ASSESSMENT PROCESS?YES ADVANCE DIRECTIVE ADVANCE DIRECTIVE DISCUSSED WITH PATIENT:YES HCP - KEYSHA ZEE () & MARYSOL CORBIN (MOTHER) REVIEW OF SYSTEMS CONSTITUTIONAL: ANY RECENT FEVER NO . CHILLS NO . WEIGHT CHANGE OF UNKNOWN REASONS NO . GASTROENTEROLOGY: NEW UNEXPLAINABLE CHANGES IN BOWEL CONTROL NO . CONSTIPATION NO . GENITOURINARY: ANY NEW CHANGE IN BLADDER CONTROL? NO . NEUROLOGY: NEW ONSET DIZZINESS OR NEUROLOGICAL CHANGES NOT MENTIONED NO . NEW NUMBNESS OR PAIN PATTERNS NOT MENTIONED AND PERTINENT TO TODAY'S VISIT NO . CARDIOLOGY: NEW CHEST PRESSURE NO . PATIENT DENIES NO . RESPIRATORY: UNEXPLAINABLE COUGH NO . NEW SHORTNESS OF BREATH NO . VITAL SIGNS WT 233.0 LBS, HT 64 IN, BMI 39.99 INDEX, BP 133/64 MM HG, HR 92 /MIN, RR 18 /MIN, TEMP 97.1 F, OXYGEN SAT % 93%, SAFE IN ENV? (Y/N) YES, NA INITIALS AW 0907, REVIEWED BY: FUENTES HWANG MA. EXAMINATION GENERAL EXAMINATION: GENERALNO ACUTE DISTRESS, WELL NOURISHED AND HYDRATED. PSYCHAPPROPRIATE MOOD AND AFFECT . LUNGS:CLEAR TO AUSCULTATION BILATERALLY, NO WHEEZES, RHONCHI, RALES. HEART:NO MURMURS, REGULAR RATE AND RHYTHM. ASSESSMENTS SPONDYLOSIS WITHOUT MYELOPATHY OR RADICULOPATHY, CERVICAL REGION - M47.812 (PRIMARY) CHRONIC PRESCRIPTION OPIATE USE - Z79.891 TREATMENT SPONDYLOSIS WITHOUT MYELOPATHY OR RADICULOPATHY, CERVICAL REGION START TIZANIDINE HCL TABLET, 4 MG, 1 TABLET NEEDED, ORALLY, THREE TIMES A DAY, 30 DAYS, 90, REFILLS 2 NOTES: 45-YEAR-OLD FEMALE IN FOR CHRONIC PAIN FOLLOW-UP. GIVEN PRESENTING SYMPTOMS RECOMMEND STARTING TIZANIDINE 4 MG 3 TIMES DAILY WITH FOLLOW-UP IN 3 MONTHS. PATIENT HAS EXPRESSED UNDERSTANDING OF AND WAS IN AGREEMENT WITH TREATMENT PLAN. GIVEN TIME ASKED QUESTIONS AND EXPRESS CONCERNS. [employer] REGISTRY REVIEWED AND DEMONSTRATES COMPLLIANCE. (REF # [id number] ) BRINGS IN MEDICATIONS WHICH IS APPROPRIATE FOR WHAT WAS DISPENSED. RECENT URINE TOXICOLOGY REVIEWED. NO UNAUTHORIZED MEDICATIONS. NO ILLICIT SUBSTANCES AND PRESCRIBED MEDICATIONS WERE PRESENT. CLINICAL NOTES: TIZANIDINE MATERIAL PRINTED AND PROVIDED TO PATIENT. TERRANCE HWANG MA. CHRONIC PRESCRIPTION OPIATE USE LAB: URINE TEST GROUP TERRANCE HWANG 08/19/2020 9:39:39 AM > LAST DOSE: HYDROCODONE-ACETAMINOPHEN 08/19/2020 AT 0800 PROCEDURE CODES [id number] ESTABILISHED PATIENT [facility] CHARGE DISPOSITION & COMMUNICATION FOLLOW UP 3 MONTHS (REASON: BACK PAIN) ELECTRONICALLY SIGNED BY BARBER RODRIGUEZ ON 08/23/2020 AT 08:20 AM EDT DISCLAIMER : THIS IS A VISIT SUMMARY EXTRACTED FROM THE [employer] CHART. IT IS NOT A COPY OF THE [employer] PROGRESS NOTE. REKHA
== END ==
LOC: M PAIN 09:00
PROVIDERS: ATTEND Family Medicine
DX: M47.812 Spondylosis without myelopathy or radiculopathy, cervical region (principal); G89.29 Other chronic pain; E11.9 Type 2 diabetes mellitus without complications; G47.30 Sleep apnea, unspecified; Z86.59 Personal history of other mental and behavioral disorders; Z87.891 Personal history of nicotine dependence; Z88.5 Allergy status to narcotic agent; Z91.013 Allergy to seafood; Z79.84 Long term (current) use of oral hypoglycemic drugs; Z79.899 Other long term (current) drug therapy

== ENCOUNTER → 2021-02-02 | Outpatient (CLI) | payer OTHER | LOC: M PAIN 09:30 | PROVIDERS: ATTEND Anesthesiology | DX: Z53.21 Procedure and treatment not carried out due to patient leaving prior to being seen by health care provider (principal) ==

== ENCOUNTER → 2021-03-09 | Outpatient (CLI) | payer OTHER ==
[~2021-03-09] MED LIST changes: +LOSA25TA13 PO; -LOSA25TA14 PO; -PARO37.54 PO; +PARO37.55 PO
== END ==
LOC: M TMPAIN 15:15 → M PAIN 15:15
PROVIDERS: ATTEND Anesthesiology
DX: M54.2 Cervicalgia (principal); M54.50 Low back pain, unspecified; G89.29 Other chronic pain; E11.9 Type 2 diabetes mellitus without complications; G47.30 Sleep apnea, unspecified; Z86.59 Personal history of other mental and behavioral disorders; Z87.891 Personal history of nicotine dependence; Z88.5 Allergy status to narcotic agent; Z91.013 Allergy to seafood; Z91.018 Allergy to other foods; Z79.84 Long term (current) use of oral hypoglycemic drugs; Z79.899 Other long term (current) drug therapy

== ENCOUNTER → 2021-06-07 | Outpatient (CLI) | payer OTHER | LOC: M PAIN 10:45 | PROVIDERS: ATTEND Anesthesiology | DX: M47.816 Spondylosis without myelopathy or radiculopathy, lumbar region (principal); G89.29 Other chronic pain; E11.9 Type 2 diabetes mellitus without complications; G47.30 Sleep apnea, unspecified; Z86.59 Personal history of other mental and behavioral disorders; Z87.891 Personal history of nicotine dependence; Z88.5 Allergy status to narcotic agent; Z91.013 Allergy to seafood; Z91.018 Allergy to other foods; Z79.84 Long term (current) use of oral hypoglycemic drugs; Z79.899 Other long term (current) drug therapy ==

== ENCOUNTER → 2021-07-27 | Outpatient (CLI) | payer OTHER ==
[~2021-07-27] MED LIST changes: +EZET10TA21 PO; +ILUM100S SC; +TRUL10IN SC
== END ==
LOC: M PAIN 11:15
PROVIDERS: ATTEND Nurse Practitioner Family
DX: M47.816 Spondylosis without myelopathy or radiculopathy, lumbar region (principal); G89.29 Other chronic pain; E11.9 Type 2 diabetes mellitus without complications; G47.30 Sleep apnea, unspecified; Z86.59 Personal history of other mental and behavioral disorders; Z87.891 Personal history of nicotine dependence; Z88.5 Allergy status to narcotic agent; Z91.013 Allergy to seafood; Z91.018 Allergy to other foods; E66.01 Morbid (severe) obesity due to excess calories; Z68.41 Body mass index [BMI] 40.0-44.9, adult; Z79.84 Long term (current) use of oral hypoglycemic drugs; Z79.899 Other long term (current) drug therapy

== ENCOUNTER → 2021-10-11 | Outpatient (CLI) | payer OTHER | LOC: M PAIN 09:45 | PROVIDERS: ATTEND Nurse Practitioner Family | DX: M47.816 Spondylosis without myelopathy or radiculopathy, lumbar region (principal); G89.29 Other chronic pain; E11.9 Type 2 diabetes mellitus without complications; I10 Essential (primary) hypertension; G47.30 Sleep apnea, unspecified; Z86.59 Personal history of other mental and behavioral disorders; Z87.891 Personal history of nicotine dependence; Z88.5 Allergy status to narcotic agent; Z91.013 Allergy to seafood; Z91.018 Allergy to other foods; E66.01 Morbid (severe) obesity due to excess calories; Z68.41 Body mass index [BMI] 40.0-44.9, adult; Z79.899 Other long term (current) drug therapy ==

== ENCOUNTER → 2022-01-05 | Outpatient (CLI) | payer OTHER | LOC: M PAIN 10:00 | PROVIDERS: ATTEND Nurse Practitioner Family | DX: M47.816 Spondylosis without myelopathy or radiculopathy, lumbar region (principal); G89.29 Other chronic pain; E11.9 Type 2 diabetes mellitus without complications; I10 Essential (primary) hypertension; G47.30 Sleep apnea, unspecified; Z86.59 Personal history of other mental and behavioral disorders; Z87.891 Personal history of nicotine dependence; Z88.5 Allergy status to narcotic agent; Z91.013 Allergy to seafood; Z91.018 Allergy to other foods; E66.01 Morbid (severe) obesity due to excess calories; Z68.41 Body mass index [BMI] 40.0-44.9, adult; Z79.84 Long term (current) use of oral hypoglycemic drugs; Z79.899 Other long term (current) drug therapy ==

== ENCOUNTER → 2022-01-29 | Outpatient (CLI) | payer OTHER | LOC: M PAIN 09:45 | PROVIDERS: ATTEND Nurse Practitioner Family | DX: M47.816 Spondylosis without myelopathy or radiculopathy, lumbar region (principal); G89.29 Other chronic pain; E11.9 Type 2 diabetes mellitus without complications; I10 Essential (primary) hypertension; G47.30 Sleep apnea, unspecified; Z86.59 Personal history of other mental and behavioral disorders; Z87.891 Personal history of nicotine dependence; Z88.5 Allergy status to narcotic agent; Z91.013 Allergy to seafood; Z91.018 Allergy to other foods; E66.01 Morbid (severe) obesity due to excess calories; Z68.41 Body mass index [BMI] 40.0-44.9, adult; Z79.899 Other long term (current) drug therapy ==

== ENCOUNTER → 2022-05-15 | Outpatient (CLI) | payer OTHER ==
[~2022-05-15] MED LIST changes: +APRE30TA3 PO; -OTEZ1TAB3 PO
== END ==
LOC: M PAIN 09:45
PROVIDERS: ATTEND Nurse Practitioner Family
DX: M47.816 Spondylosis without myelopathy or radiculopathy, lumbar region (principal); G89.29 Other chronic pain; E11.9 Type 2 diabetes mellitus without complications; I10 Essential (primary) hypertension; G47.30 Sleep apnea, unspecified; Z86.59 Personal history of other mental and behavioral disorders; Z87.891 Personal history of nicotine dependence; Z88.5 Allergy status to narcotic agent; Z91.013 Allergy to seafood; Z91.018 Allergy to other foods; E66.01 Morbid (severe) obesity due to excess calories; Z68.41 Body mass index [BMI] 40.0-44.9, adult; Z79.899 Other long term (current) drug therapy

== ENCOUNTER → 2022-08-07 | Outpatient (CLI) | payer OTHER | LOC: M PAIN 08:45 | PROVIDERS: ATTEND Nurse Practitioner Family | DX: M47.812 Spondylosis without myelopathy or radiculopathy, cervical region (principal); M47.816 Spondylosis without myelopathy or radiculopathy, lumbar region; G89.29 Other chronic pain; E11.9 Type 2 diabetes mellitus without complications; I10 Essential (primary) hypertension; G47.30 Sleep apnea, unspecified; Z86.59 Personal history of other mental and behavioral disorders; Z87.891 Personal history of nicotine dependence; Z88.5 Allergy status to narcotic agent; Z91.013 Allergy to seafood; Z91.018 Allergy to other foods; E66.01 Morbid (severe) obesity due to excess calories; Z68.41 Body mass index [BMI] 40.0-44.9, adult; Z79.85 Long-term (current) use of injectable non-insulin antidiabetic drugs; Z79.899 Other long term (current) drug therapy ==

== ENCOUNTER → 2023-01-31 | Outpatient (CLI) | payer OTHER ==
[~2023-01-31] MED LIST changes: -GABA-283 PO; +GABA-284 PO
== END ==
LOC: M PAIN 09:30
PROVIDERS: ATTEND Nurse Practitioner Family
DX: M47.816 Spondylosis without myelopathy or radiculopathy, lumbar region (principal); M79.10 Myalgia, unspecified site; G89.29 Other chronic pain; Z85.118 Personal history of other malignant neoplasm of bronchus and lung; Z85.828 Personal history of other malignant neoplasm of skin; Z86.16 Personal history of COVID-19; Z80.8 Family history of malignant neoplasm of other organs or systems; Z88.5 Allergy status to narcotic agent; Z91.013 Allergy to seafood; Z91.018 Allergy to other foods; Z79.85 Long-term (current) use of injectable non-insulin antidiabetic drugs; Z79.899 Other long term (current) drug therapy

== ENCOUNTER → 2023-06-25 | Outpatient (CLI) | payer OTHER | LOC: M PAIN 17:30 | PROVIDERS: ATTEND Nurse Practitioner Family | DX: M47.812 Spondylosis without myelopathy or radiculopathy, cervical region (principal); M47.816 Spondylosis without myelopathy or radiculopathy, lumbar region; Z79.891 Long term (current) use of opiate analgesic; L40.9 Psoriasis, unspecified; I10 Essential (primary) hypertension; E78.5 Hyperlipidemia, unspecified; G47.30 Sleep apnea, unspecified; E11.9 Type 2 diabetes mellitus without complications; Z79.02 Long term (current) use of antithrombotics/antiplatelets; Z79.51 Long term (current) use of inhaled steroids; Z79.85 Long-term (current) use of injectable non-insulin antidiabetic drugs; Z79.899 Other long term (current) drug therapy; Z88.5 Allergy status to narcotic agent; Z91.013 Allergy to seafood; Z91.018 Allergy to other foods ==

== ENCOUNTER → 2023-07-04 | Outpatient (CLI) | payer OTHER | LOC: M CARPUL 10:22 | PROVIDERS: ATTEND Family Medicine | DX: I51.7 Cardiomegaly (principal) ==

== ENCOUNTER → 2023-08-08 | Outpatient (CLI) | payer OTHER | LOC: M PAIN 10:00 | PROVIDERS: ATTEND Nurse Practitioner Family | DX: M47.812 Spondylosis without myelopathy or radiculopathy, cervical region (principal); I10 Essential (primary) hypertension; E78.5 Hyperlipidemia, unspecified; G89.29 Other chronic pain; Z79.2 Long term (current) use of antibiotics; Z79.621 Long term (current) use of calcineurin inhibitor; Z79.899 Other long term (current) drug therapy; Z79.891 Long term (current) use of opiate analgesic; Z88.5 Allergy status to narcotic agent; Z91.013 Allergy to seafood; Z91.018 Allergy to other foods; Z91.040 Latex allergy status ==

== ENCOUNTER → 2023-12-24 | Outpatient (CLI) | payer OTHER | LOC: M PAIN 14:30 | PROVIDERS: ATTEND Nurse Practitioner Family | DX: M47.812 Spondylosis without myelopathy or radiculopathy, cervical region (principal); Z79.891 Long term (current) use of opiate analgesic; G89.29 Other chronic pain; M54.50 Low back pain, unspecified; E11.9 Type 2 diabetes mellitus without complications; F32.A Depression, unspecified; F41.9 Anxiety disorder, unspecified; E78.5 Hyperlipidemia, unspecified; M47.816 Spondylosis without myelopathy or radiculopathy, lumbar region; G47.30 Sleep apnea, unspecified; M54.2 Cervicalgia; L40.9 Psoriasis, unspecified; Z85.828 Personal history of other malignant neoplasm of skin; Z85.118 Personal history of other malignant neoplasm of bronchus and lung; Z79.899 Other long term (current) drug therapy; Z88.5 Allergy status to narcotic agent; Z91.013 Allergy to seafood; Z91.018 Allergy to other foods ==

== ENCOUNTER → 2024-04-06 | Outpatient (CLI) | payer OTHER | LOC: M PAIN 16:00 | PROVIDERS: ATTEND Nurse Practitioner Family | DX: M47.816 Spondylosis without myelopathy or radiculopathy, lumbar region (principal); G89.29 Other chronic pain; I10 Essential (primary) hypertension; E78.5 Hyperlipidemia, unspecified; E11.9 Type 2 diabetes mellitus without complications; L40.9 Psoriasis, unspecified; Z79.891 Long term (current) use of opiate analgesic; Z79.899 Other long term (current) drug therapy; Z88.5 Allergy status to narcotic agent; Z91.013 Allergy to seafood; Z91.018 Allergy to other foods ==